=== PATIENT | female | born 1975 | race Caucasian/White ===

== ENCOUNTER 2021-01-20 12:44 | Outpatient (CLI) | payer BC, SELFPAY ==
--- NOTE | 2021-01-20 | ECHO_ITS ---
Patient Info Name: Kaye Shane Age: 45 years : 1975 Gender: Female Ht: 64 in Wt: 200 lbs BSA: 2.06 m2 HR: 73 bpm BP: 120 / 74 mmHg Heart Rhythm: Sinus Rhythm Technical Quality: Good Exam Date: 01/20/2021 1:25 PM Exam Location: [facility] Patient Status: Outpatient Admit Date: 01/20/2021 Staff Ordering Physician: SofieAngie PA-C Wildlife Conservation Officer: Amy Adler RDCS Attending Provider: Angie Leos PA-C Exam Type: CA echo doppler color flow Study Info Indications - INCREASED ECTOPY R01.1 - Cardiac murmur, unspecified Complete two-dimensional, color flow and Doppler transthoracic echocardiogram is performed. Summary 1. Complete two-dimensional, color flow and Doppler transthoracic echocardiogram is performed. 2. Left ventricular chamber dimension is normal. 3. Left ventricular systolic function is normal, estimated at 65-70%. 4. There is trace mitral valve regurgitation. 5. There is trace tricuspid valve regurgitation. Left Ventricle Left ventricular chamber dimension is normal. Left ventricular systolic function is normal, estimated at 65-70%. The left ventricular diastolic function is normal. Right Ventricle Right ventricular chamber dimension is normal. Left Atria Left atrial chamber dimension is normal. Right Atria Right atrial chamber dimension is normal. Aortic Valve The aortic valve is normal. Pulmonic Valve The pulmonic valve is normal. Mitral Valve The mitral valve has normal leaflets. There is trace mitral valve regurgitation. Tricuspid Valve The tricuspid valve leaflets are normal. There is trace tricuspid valve regurgitation. Pericardium/Pleural The pericardium appears normal. Aorta The aortic root size at the sinus of Valsalva is normal. Left Ventricular Outflow Tract Name Value Normal LVOT 2D LVOT Diameter 2.0 cm LVOT Doppler LVOT Peak Gradient 11 mmHg LVOT Mean Gradient 6 mmHg LVOT VTI 32 cm LVOT VTI/AV VTI Ratio 0.9 LVOT Stroke Volume 102 ml LVOT CO 21.0 l/min LVOT CI 10.2 l/min/m2 Pulmonic Valve Name Value Normal PV Doppler PV Peak Gradient 6 mmHg Mitral Valve Name Value Normal MV Doppler MV Decel Sabine 423 cm/s2 MV PHT 72 ms MV Area (PHT) 3.1 cm2 4.0-5.0 MV Diastolic Function --
== END 2021-01-20 12:45 | disposition home or self-care (01) ==
PROVIDERS: PCP Physician Assistant; Visit Provider Physician Assistant
DX: R01.1 Cardiac murmur, unspecified (principal)
CPT/HCPCS: 93306

== ENCOUNTER → 2021-01-27 15:22 | Outpatient (CLI) | payer BC, SELFPAY ==
--- NOTE | ~2021-01-27 | MM_ITS ---
EXAMINATION: MM screening mushtaq BI w daphne HISTORY: Screening mammogram TECHNIQUE: Craniocaudal and mediolateral oblique 3-D tomosynthesis images were obtained and synthetic 2-D images were generated. CAD analysis was submitted and interpreted. COMPARISON: August 27, 2018 bilateral digital screening mammogram examination BREAST PARENCHYMAL COMPOSITION: The breasts are heterogeneously dense, which may obscure small masses . FINDINGS: Stable benign circumscribed opacity consistent with intramammary lymph node, posterior oute r mid left breast. There is no evidence of suspicious mass, calcification, or architectural distortio n to suggest malignancy in either breast. There has been no suspicious interval change. IMPRESSION: 1. No mammographic evidence of malignancy. 2. Recommend routine screening mammography in one year. BI-RADS Category 2: Benign finding(s). Reviewed, dictated and finalized at location A.
== END ==
PROVIDERS: PCP Physician Assistant; Visit Provider Physician Assistant
DX: Z12.31 Encounter for screening mammogram for malignant neoplasm of breast (principal)
CPT/HCPCS: 77063; 77067

== ENCOUNTER 2022-04-27 11:07 | Emergency (ER) | payer BC, SELFPAY ==
[2022-04-27 11:32] VITALS: BP 135/78; PULSE 95; RESP 17; TEMP 36.3; O2SAT 98
--- NOTE | 2022-04-27 13:33 | PC.NURSE ---
pt to the intake desk and states that she is going to leave. Pt ambulated to the exit with no difficulty
== END 2022-04-27 13:33 | disposition left against medical advice (07) ==
PROVIDERS: PCP Physician Assistant
DX: R20.0 Anesthesia of skin (principal)
CPT/HCPCS: 99199

== ENCOUNTER → 2022-08-04 10:05 | Outpatient (CLI) | payer BC, SELFPAY ==
--- NOTE | ~2022-08-04 | MM_ITS ---
EXAMINATION: MM screening mushtaq BI w daphne HISTORY: Screening TECHNIQUE: Craniocaudal and mediolateral oblique 3-D tomosynthesis images were obtained and synthetic 2-D images were generated. CAD analysis was submitted and interpreted. COMPARISON: Comparison to multiple prior studies sequentially, with oldest reviewed study dated 08/27. BREAST PARENCHYMAL COMPOSITION: The breasts are heterogeneously dense, which may obscure small masses FINDINGS: There is no evidence of suspicious mass, calcification, or architectural distortion to sugg est malignancy in either breast. There has been no suspicious interval change. IMPRESSION: 1. No mammographic evidence of malignancy. 2. Recommend routine screening mammography in one year. BI-RADS Category 1: Negative Reviewed, dictated and finalized at location A. 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
== END ==
PROVIDERS: PCP Physician Assistant; Visit Provider Physician Assistant
DX: Z12.31 Encounter for screening mammogram for malignant neoplasm of breast (principal)
CPT/HCPCS: 77063; 77067

== ENCOUNTER 2023-11-01 10:54 | Outpatient (CLI) | payer BC, SELFPAY ==
--- NOTE | ~2023-11-01 | MM_ITS ---
EXAMINATION: MM screening mushtaq BI w daphne HISTORY: Screening mammogram TECHNIQUE: Craniocaudal and mediolateral oblique 3-D tomosynthesis images were obtained and synthetic 2-D images were generated. CAD analysis was submitted and interpreted. COMPARISON: August 04, 2022, January 27, 2021 bilateral screening mammogram examinations BREAST PARENCHYMAL COMPOSITION: The breasts are heterogeneously dense, which may obscure small masses . FINDINGS: There is no evidence of suspicious mass, calcification, or architectural distortion to sugg est malignancy in either breast. There has been no suspicious interval change. IMPRESSION: 1. No mammographic evidence of malignancy. 2. Recommend routine screening mammography in one year. BI-RADS Category 1: Negative. Vertebral Reviewed, dictated and finalized at location A.
== END 2023-11-01 10:55 ==
LOC: MICIMG 10:55
PROVIDERS: PCP Physician Assistant; Visit Provider Physician Assistant
DX: Z12.31 Encounter for screening mammogram for malignant neoplasm of breast (principal)
CPT/HCPCS: 77063; 77067

== ENCOUNTER 2024-09-15 11:49 | Outpatient (CLI) | payer BC, SELFPAY ==
[2024-09-15 12:31] LABS: Anion Gap 12 mmol/L (4-12); Blood Urea Nitrogen 13 mg/dL (7-17); Calcium 8.8 mg/dL (8.4-10.2); Carbon Dioxide 23 mmol/L (22-30); Chloride 103 mmol/L (98-107); Estimated Glomerular Filt Rate > 60; Glucose 87 mg/dL (65-110); Potassium 3.9 mmol/L (3.4-5.0); Sodium 138 mmol/L (137-145)
--- OUTSIDE RECORDS SUMMARY | 2024-09-15 14:21 | XMS_ITS | Clinical Summary ---
Author Organization [facility] Address [address] [place] [address] Care Team Providers Care Distributor Operator Name Role Phone Unavailable Primary Care Provider Unavailabl e Source Comments [facility],non-owned Affiliates and Associated Physician Practices is amultiple site organization consisting of ambulatory clinics and hospital sitesin [place], [place], [place] and [place]. This disclosure is being madepursuant to the Care Everywhere program and may not contain all informatio navailable regarding this patient. Last updated 18.[facility] [employer] Social History Tobacco Use Types Packs/Day Years Used Date Smoking Tobacco: Never Assessed Sex and Gender Information Value Date Recorded Sex Assigned at Not on file Gender Identity Not on file Sexual Orientation Not on file Plan of Treatment Health Maintenance Due Date Last Done Comments COLOGUARD (AGES 45-75) - COL ON CA SCREENING 1975 COLON MONITORING 1975 COLONOSCOPY - COLON CA SCREENING 1975 CT COLONOGRAPHY - COLON CA SCREENING 1975 Colorectal Cancer Screening 1975 FIT - COLON CA SCREENING 1975 FLEX SIG - COLON CA SCREENING 1975 LIPID TESTING 1975 MAMMOGRAM 1975 PAP SMEAR 1975 HIV SCREENING 12/10/1991 HEPATITIS C SCREENING 12/05/1994 DTAP/TDAP/TD VACCINES (1 - Tdap) 12/10/1995 HEPATITIS B VACCINE (1 of 3 - 19+ 3-dose series) 12/10/1995 COVID-19 VACCINE (3 2023-2 5 season) 2024 07/27/2020, 06/29/2020 INFLUENZA VACCINE (#1) 2024 DEPRESSION SCREENING 07/02/2024 ZOSTER VACCINE (1 of 2) 2026 HIB VACCINE Aged Out No longer eligi ble based on patient's age to complete this topic HPV VACCINE Aged Out No longer eligi ble based on patient's age to complete this topic MENINGOCOCCAL (Group B) VACCINE SHARED DECISION-MAKING Aged Out No longer eligible based on patient's age to complete this topic MENINGOCOCCAL GROUPS A/C/Y/W VACCINE Aged Out No longer eligible b ased on patient's age to complete this topic PNEUMOCOCCAL VACCINE Aged Out No long er eligible based on patient's age to complete this topic
--- OUTSIDE RECORDS SUMMARY | 2024-09-15 14:21 | XMS_ITS | Clinical Summary ---
Author Organization [facility] Address [address] [place] [id number] Care Team Providers Care Serologist Name Role Phone Argelia Huitronkelvin NIX Primary Care Pr ovider Allergies No known active allergies Medications ketorolac (TORADOL) 10 mg tablet Take 1 tablet (10 mg total) by mouth every 6 (six) hours as needed for pain 20 tablet 2 Active cyclobenzaprine (FLEXERIL) 10 mg tablet Take 1 tablet (10 mg total) by mouth 2 (two) times a day as needed for muscle spasms 20 tablet 2 Active gabapentin (NEURONTIN) 300 mg capsuleIndicati ons:Neuropathic Pain Take 1 capsule (300 mg total) by mouth 3 (three) times a day for 10 days For post-herpetic neuralgia: Take 1 tablet on day 1, Then take 2 tablets on day 2, Then take 3 tablets on day 3 and every day after that as instructed by your doctor. 30 capsule 2 Active Social History Tobacco Use Types Packs/Day Years Used Date Smoking Tobacco: Never Assessed Personal Safety Answer Date Recorded Getting School Help Needed Not on file 09/14 Comments Unknown Sex and Gender Information Value Date Recorded Sex Assigned at Not on file Legal Sex Female 12:34 AM WATCH REPAIR TECHNICIAN Gender Identity Not on file Sexual Orientation Not on file Last Filed Vital Signs Vital Sign Reading Time Taken Comments Blood Pressure 105/59 06/25/2022 7:49 PM WATCH REPAIR TECHNICIAN Pulse 103 06/25/2022 7:49 PM WATCH REPAIR TECHNICIAN Temperature 36.8 C (98.3 F) 06/25/2022 7:49 PM WATCH REPAIR TECHNICIAN Respiratory Rate 18 06/25/2022 7:49 PM WATCH REPAIR TECHNICIAN Oxygen Saturation 98% 06/25/2022 7:49 PM WATCH REPAIR TECHNICIAN Inhaled Oxygen Concentration - - Weight 74.8 kg (165 lb) 06/25/2022 7:49 PM WATCH REPAIR TECHNICIAN Height 162.6 cm (5' 4 ) 10/23/2014 11:54 AM CDT Body Mass Index 28.32 10/23/2014 11:54 AM CDT Plan of Treatment Health Maintenance Due Date Last Done Comments Breast Cancer Screening-Mammogram 1975 Colon Cancer Screening-Colonoscopy 1975 Depression Screening 1975 Hepatitis C Screening 1975 DTaP/Tdap/Td Vaccine (1 - Tdap) 12/10/1987 Hepatitis B Screening 1994 Regular Well Visit/Exam 18-64 1994 Cervical Cancer Screening 08/12/2015 08/12/2014 Covid-19 Vaccine (3 - 2023-2 5 season) 2024 07/27/2020, 06/29/2020 Influenza Vaccine (#1) 2024 03/02/2019 Pneumococcal vaccine <65 Aged Out No longer eligible based on patient's age to complete this topic Procedures Procedure Name Priority Date/Time Associated Diagnosis Comments THINPREP PAP Routine 08/12/2014 1:00 PM WATCH REPAIR TECHNICIAN from Last 3 Months or Most Recently Relevant to Health Maintenance Results * ThinPrep Pap (08/12/2014 1:00 PM WATCH REPAIR TECHNICIAN) Thin Prep Pap Smear SEE BELOW () 08/22 10:47 AM WATCH REPAIR TECHNICIAN [facility] HISTORICAL RESULTS Comment: Cloth Burler ThinPrep Cytology Final Report ThinPrep Pap Specimen Source Cervix/Endocervix Specimen Adequacy Satisfactory for interpretation, endocervical cells (transformation zone) present. Interpretation Negative for intraepithelial lesion or malignancy. 08/21/14 Feather Duster Winder: Nani Yeager, CT(ASCP) Reviewed by: JUANITO 08/22/14 Verified By: Petra Taveras, CT(ASCP) electronic signature [facility] Department of Pathology For questions regarding this case, call [phone]. [phone] CPT Code(s) 98568 Clinical History LMP: [id number] : N : N IUD: N Hormone Therapy: N Postmenopausal: N Previous surgery date and type: N Hysterectomy: N Chemotherapy: N MAURICIO Exposure: N Radiation: N Previous Abnormal Pap? Details: N Diagnostic or Screening Pap Test: Screening Performed by [facility], [address] [place] [id number] [email or web address], Khurram Esparza MD - Lab. Director 08/12/2014 1:00 PM WATCH REPAIR TECHNICIAN 08/12/2014 4:07 PM WATCH REPAIR TECHNICIAN Jose A Wiggins MD LAB PATHOLOGY ORDERABLE S Final Result [facility] HISTORICAL RESULTS from Last 3 Months or Most Recently Relevant to Health Maintenance [place]about [place] [employer] [place] Care Teams Serologist Relationship Specialty Start Date End Date Crissy Huitron PA PCP - General Physician Ticket Collector Or Usher 03/30/20
--- OUTSIDE RECORDS SUMMARY | 2024-09-15 14:21 | XMS_ITS | Data Portability ---
Author Organization [place] - [facility] [address], Main Office Address [address] [place] [address] Assessment Encounter Date Assessment Date Assessment LastModified by Organization Details LastModified Time 02/22/2023 02/22/2023 cologuard negative mar 2022 [email or web address] Not available 02/22/2023 11:41:16 Plan of Treatment Reminders Order Date Submit Date Provider Last Modified By Organization Details Last Modified Time Details Appointments None recorded. Lab lipid panel, serum 2022 023 [facility], [address], [place], [address], 4 17:09:55 C-reactive protein, quantitativ e, serum or plasma 2022 023 [facility], [address], [place], [address], 4 17:10:07 rf (rheumatoid factor), serum 2022 023 [facility], [address], [place], [address], 4 17:10:06 erythrocyte sedimentati on rate by westergren method 2022 023 [facility], [address], [place], [address], 4 17:10:00 uric acid, serum or plasma 2022 023 [facility], [address], [place], [address], 4 17:09:59 GENET (antinuclea r antibodies) screen, ifa, serum 2022 023 [facility], [address], [place], [address], 4 17:10:04 CBC w/ auto diff 2022 023 [facility], [address], [place], [address], 4 17:10:02 CMP, serum or plasma 2022 023 [facility], [address], [place], [address], 4 17:09:56 TSH + free T4, serum 2022 023 [facility], [address], [place], [address], 4 17:09:54 HbA1c (hemoglobin A1c), blood 2022 023 [facility], [address], [place], [address], 4 17:09:58 Referral None recorded. Procedures None recorded. Surgeries None recorded. Imaging XR, foot, 3 or more view 2022 023 KIRSTIE Not available 08:49:48 Medication Orders None recorded. Patient TargetsNo targets recorded. Patient InstructionsNo instructions recorded. Reason for Referral None Reported. Results Created Date Observation Date Name Description Value Unit Range Abnormal Flag Note LastModifiedBy Organization Detail LastModifiedTime 02/23/20 22 02/24/2022 CULTU RE, URINE , ROUTI NE culture, urine, routine CULTU RE, URINE , ROUTI NE Micro Numbe r: [id number] Test Statu s: Final Speci men Sourc e: Urine Speci men Quali ty: Adequ ate Resul t: Mixed genit al ashtyn isola junie. These super ficia l bacte shaan are not indic ative of a urina ry tract infec tion. No furth er organ ism ident ifica tion is warra nted on this speci men. If clini flora indic ated, recol lect clean -catc h, mid-s tream urine and trans mellissa immed iatel y to Urine Cultu re Trans port Tube. Not Available [facility] [address] [address] [place], [address], 02/24/2022 02:14:41 02/23/2002/24/2022 INSUL IN insulin 14.9 uIU/m L normal Refer ence Range < or = 19.6 Risk: Optim al < or = 19.6 Moder ate NA High >19.6 Adult cardi ovasc ular event risk categ ory cut point s (opti mal, moder ate, high) are based on [facility] popul ation data from 06/20 11. This insul in assay shows stron g cross -reac tivit y for some insul in analo gs (lisp ro, aspar t, and glarg ine) and much lower cross -reac tivit y with other s (dete mauro, gluli sine) . Not Available [facility] [address] [address] [place], [address], 02/24/2022 02:14:40 02/23/20 22 02/24/2022 REFLE XIVE URINE CULTU RE reflexive urine culture CULTU RE INDIC ATED - RESUL TS TO FOLLO W Not Available [facility] [address] [address] [place], [address], 02/24/2022 02:14:40 02/23/20 22 02/24/2022 URINA LYSIS , COMPL ETE W/REF CELESTINE TO CULTU RE hyaline cast none seen /lpf none seen normal Not Available [facility] [address] [address] [place], [address], 02/24/2022 02:14:40 02/23/20 22 02/24/2022 URINA LYSIS , COMPL ETE W/REF CELESTINE TO CULTU RE color yellow yellow normal Not Available [address], [address], 02/24/2022 02:14:40 02/23/20 22 02/24/2022 URINA LYSIS , COMPL ETE W/REF CELESTINE TO CULTU RE appearance clear clear normal Not Available [address], [address], 02/24/2022 02:14:40 02/23/20 22 02/24/2022 URINA LYSIS , COMPL ETE W/REF CELESTINE TO CULTU RE specific gravity 1.023 1.001- 1.035 normal Not Available [address], [address], 02/24/2022 02:14:40 02/23/20 22 02/24/2022 URINA LYSIS , COMPL ETE W/REF CELESTINE TO CULTU RE pH 7.0 5.0-8. 0 normal Not Available [address], [address], 02/24/2022 02:14:40 02/23/20 22 02/24/2022 URINA LYSIS , COMPL ETE W/REF CELESTINE TO CULTU RE glucose negati ve negati ve normal Not Available [address], [address], 02/24/2022 02:14:40 02/23/20 22 02/24/2022 URINA LYSIS , COMPL ETE W/REF CELESTINE TO CULTU RE bilirubin negati ve negati ve normal Not Available [address], [address], 02/24/2022 02:14:40 02/23/20 22 02/24/2022 URINA LYSIS , COMPL ETE W/REF CELESTINE TO CULTU RE ketones negati ve negati ve normal Not Available [address], [address], 02/24/2022 02:14:40 02/23/20 22 02/24/2022 URINA LYSIS , COMPL ETE W/REF CELESTINE TO CULTU RE occult blood negati ve negati ve normal Not Available [address], [address], 02/24/2022 02:14:40 02/23/20 22 02/24/2022 URINA LYSIS , COMPL ETE W/REF CELESTINE TO CULTU RE protein negati ve negati ve normal Not Available [address], [address], 02/24/2022 02:14:40 02/23/20 22 02/24/2022 URINA LYSIS , COMPL ETE W/REF CELESTINE TO CULTU RE nitrite negati ve negati ve normal Not Available [address], [address], 02/24/2022 02:14:40 02/23/20 22 02/24/2022 URINA LYSIS , COMPL ETE W/REF CELESTINE TO CULTU RE leukocyte esterase 1+ negati ve abnormal Not Available [address], [address], 02/24/2022 02:14:40 02/23/20 22 02/24/2022 URINA LYSIS , COMPL ETE W/REF CELESTINE TO CULTU RE WBC 0-5 /hpf < or = 5 normal Not Available [address], [address], 02/24/2022 02:14:40 02/23/20 22 02/24/2022 URINA LYSIS , COMPL ETE W/REF CELESTINE TO CULTU RE RBC none seen /hpf < or = 2 normal Not Available [address] [place], [address], 02/24/2022 02:14:40 02/23/20 22 02/24/2022 URINA LYSIS , COMPL ETE W/REF CELESTINE TO CULTU RE squamous epithelial cells 0-5 /hpf < or = 5 Not Available [address], [address], 02/24/2022 02:14:40 02/23/20 22 02/24/2022 URINA LYSIS , COMPL ETE W/REF CELESTINE TO CULTU RE bacteria none seen /hpf none seen normal Not Available [address], [address], 02/24/2022 02:14:40 02/23/20 22 02/24/2022 CBC (INCL UDES DIFF/ PLT) white blood cell count 7.5 thous and/u L 3.8-10 .8 normal Not Available [address], [address], 02/24/2022 02:14:39 02/23/20 22 02/24/2022 CBC (INCL UDES DIFF/ PLT) red blood cell count 4.23 jordyn on/uL 3.80-5 .10 normal Not Available [address], [address], 02/24/2022 02:14:39 02/23/20 22 02/24/2022 CBC (INCL UDES DIFF/ PLT) hemoglobin 11.8 g/dL 11.7-1 5.5 normal Not Available [address], [address], 02/24/2022 02:14:39 02/23/20 22 02/24/2022 CBC (INCL UDES DIFF/ PLT) hematocrit 37.2 % 35.0-4 5.0 normal Not Available [address], [address], 02/24/2022 02:14:39 02/23/20 22 02/24/2022 CBC (INCL UDES DIFF/ PLT) MCV 87.9 fL 80.0-1 00.0 normal Not Available [address], [address], 02/24/2022 02:14:39 02/23/20 22 02/24/2022 CBC (INCL UDES DIFF/ PLT) MCH 27.9 pg 27.0-3 3.0 normal Not Available [address], [address], 02/24/2022 02:14:39 02/23/20 22 02/24/2022 CBC (INCL UDES DIFF/ PLT) MCHC 31.7 g/dL 32.0-3 6.0 low Not Available [address], [address], 02/24/2022 02:14:39 02/23/20 22 02/24/2022 CBC (INCL UDES DIFF/ PLT) RDW 13.1 % 11.0-1 5.0 normal Not Available [address], [address], 02/24/2022 02:14:39 02/23/20 22 02/24/2022 CBC (INCL UDES DIFF/ PLT) platelet count 228 thous and/u L 140-40 0 normal Not Available [address], [address], 02/24/2022 02:14:39 02/23/20 22 02/24/2022 CBC (INCL UDES DIFF/ PLT) MPV 11.1 fL 7.5-12 .5 normal Not Available [address], [address], 02/24/2022 02:14:39 02/23/20 22 02/24/2022 CBC (INCL UDES DIFF/ PLT) absolute neutrophils 4485 cells /uL 1500-7 800 normal Not Available [address], [address], 02/24/2022 02:14:39 02/23/20 22 02/24/2022 CBC (INCL UDES DIFF/ PLT) absolute lymphocytes 2228 cells /uL 850-39 00 normal Not Available [address], [address], 02/24/2022 02:14:39 02/23/20 22 02/24/2022 CBC (INCL UDES DIFF/ PLT) absolute monocytes 450 cells /uL 200-95 0 normal Not Available [address], [address], 02/24/2022 02:14:39 02/23/20 22 02/24/2022 CBC (INCL UDES DIFF/ PLT) absolute eosinophils 278 cells /uL 15-500 normal Not Available [address], [address], 02/24/2022 02:14:39 02/23/20 22 02/24/2022 CBC (INCL UDES DIFF/ PLT) absolute basophils 60 cells /uL 0-200 normal Not Available [address], [address], 02/24/2022 02:14:39 02/23/20 22 02/24/2022 CBC (INCL UDES DIFF/ PLT) neutrophils 59.8 % normal Not Available [address], [address], 02/24/2022 02:14:39 02/23/20 22 02/24/2022 CBC (INCL UDES DIFF/ PLT) lymphocytes 29.7 % normal Not Available [address], [address], 02/24/2022 02:14:39 02/23/20 22 02/24/2022 CBC (INCL UDES DIFF/ PLT) monocytes 6.0 % normal Not Available [facility] [address] [address] [place], [address], 02/24/2022 02:14:39 02/23/20 22 02/24/2022 CBC (INCL UDES DIFF/ PLT) eosinophils 3.7 % normal Not Available [facility] [address] [address] [place], [address], 02/24/2022 02:14:39 02/23/20 22 02/24/2022 CBC (INCL UDES DIFF/ PLT) basophils 0.8 % normal Not Available [facility] [address] [address] [place], [address], 02/24/2022 02:14:39 02/23/20 22 02/24/2022 HEMOG LOBIN A1C hemoglobin A1C 5.1 %_of_ total _HGB <5.7 normal For the purpo se of aurelio gracia for the prese nce of diabe sanjana: <5.7% Consi stent with the absen ce of diabe sanjana 5.7-6 .4% Consi stent with incre ased risk for diabe sanjana (pred iabet es) > or =6.5% Consi stent with diabe sanjana This assay resul t is consi stent with a decre ased risk of diabe sanjana. Curre ntly, no conse nsus exist s mary cadet use of hemog lobin A1c for diagn osis of diabe sanjana in child marcelino. Accor ding to Ameri can Diabe sanjana Assoc iatio n (ADA) guide lines , hemog lobin A1c <7.0% repre sents optim al contr ol in non-p regna nt diabe tic patie nts. Diffe rent metri cs may apply to speci fic patie nt popul ation s. [facility] of Medic al Care in [place] sanjana(A DA). Not Available [facility] [address] [address] [place], [address], 02/24/2022 02:14:39 02/23/20 22 02/24/2022 COMPR EHENS YANELY METAB OLIC PANEL glucose 96 mg/dL 65-99 normal Fasti ng refer ence inter jordon Not Available [address], [address], 02/24/2022 02:14:38 02/23/20 22 02/24/2022 COMPR EHENS YANELY METAB OLIC PANEL urea nitrogen (BUN) 14 mg/dL 7-25 normal Not Available [address], [address], 02/24/2022 02:14:38 02/23/20 22 02/24/2022 COMPR EHENS YANELY METAB OLIC PANEL creatinine 0.75 mg/dL 0.50-0 .99 normal Not Available [address], [address], 02/24/2022 02:14:38 02/23/20 22 02/24/2022 COMPR EHENS YANELY METAB OLIC PANEL eGFR 100 mL/mi n/1.7 3m2 > or = 60 normal The eGFR is based on the CKD-E PI 2020 kostas moreno. To calcu late the new eGFR from a previ ous Creat inine or Cysta tin C resul t, go to https ://sam townsend.tyra ko/enrique leach s/ kdoqi /gfr% 5Fcal culat or Not Available [address], [address], 02/24/2022 02:14:38 02/23/20 22 02/24/2022 COMPR EHENS YANELY METAB OLIC PANEL BUN/creatini ne ratio not applic able (calc ) 6-22 Not Available [address], [address], 02/24/2022 02:14:38 02/23/20 22 02/24/2022 COMPR EHENS YANELY METAB OLIC PANEL sodium 138 mmol/ L 135-14 6 normal Not Available [address], [address], 02/24/2022 02:14:38 02/23/20 22 02/24/2022 COMPR EHENS YANELY METAB OLIC PANEL potassium 3.9 mmol/ L 3.5-5. 3 normal Not Available [address], [address], 02/24/2022 02:14:38 02/23/20 22 02/24/2022 COMPR EHENS YANELY METAB OLIC PANEL chloride 104 mmol/ L 98-110 normal Not Available [address], [address], 02/24/2022 02:14:38 02/23/20 22 02/24/2022 COMPR EHENS YANELY METAB OLIC PANEL carbon dioxide 31 mmol/ L 20-32 normal Not Available [address], [address], 02/24/2022 02:14:38 02/23/20 22 02/24/2022 COMPR EHENS YANELY METAB OLIC PANEL calcium 8.9 mg/dL 8.6-10 .2 normal Not Available [address], [address], 02/24/2022 02:14:38 02/23/20 22 02/24/2022 COMPR EHENS YANELY METAB OLIC PANEL protein, total 6.1 g/dL 6.1-8. 1 normal Not Available [address], [address], 02/24/2022 02:14:38 02/23/20 22 02/24/2022 COMPR EHENS YANELY METAB OLIC PANEL albumin 3.7 g/dL 3.6-5. 1 normal Not Available [address], [address], 02/24/2022 02:14:38 02/23/20 22 02/24/2022 COMPR EHENS YANELY METAB OLIC PANEL globulin 2.4 g/dL_ (calc ) 1.9-3. 7 normal Not Available [address], [address], 02/24/2022 02:14:38 02/23/20 22 02/24/2022 COMPR EHENS YANELY METAB OLIC PANEL albumin/glob ulin ratio 1.5 (calc ) 1.0-2. 5 normal Not Available [address], [address], 02/24/2022 02:14:38 02/23/20 22 02/24/2022 COMPR EHENS YANELY METAB OLIC PANEL bilirubin, total 0.4 mg/dL 0.2-1. 2 normal Not Available [address], [address], 02/24/2022 02:14:38 02/23/20 22 02/24/2022 COMPR EHENS YANELY METAB OLIC PANEL alkaline phosphatase 79 U/L 31-125 normal Not Available [address], [address], 02/24/2022 02:14:38 02/23/20 22 02/24/2022 COMPR EHENS YANELY METAB OLIC PANEL AST 13 U/L 10-35 normal Not Available [address], [address], 02/24/2022 02:14:38 02/23/20 22 02/24/2022 COMPR EHENS YANELY METAB OLIC PANEL ALT 13 U/L 6-29 normal Not Available [address], [address], 02/24/2022 02:14:38 02/23/20 22 02/24/2022 LIPID PANEL WITH RATIO S cholesterol, total 155 mg/dL <200 normal Not Available [address], [address], 02/24/2022 02:14:38 02/23/20 22 02/24/2022 LIPID PANEL WITH RATIO S HDL cholesterol 45 mg/dL > or = 50 low Not Available [address], [address], 02/24/2022 02:14:38 02/23/20 22 02/24/2022 LIPID PANEL WITH RATIO S triglyceride s 212 mg/dL <150 high If a non-f astin g speci men was colle cted, consi beth repea t trigl yceri de testi ng on a fasti ng speci men if clini flora indic ated. Carlos gatica et al. J. of Clin. Lipid ol. 2015; 9:129 -169. Not Available [address], [address], 02/24/2022 02:14:38 02/23/20 22 02/24/2022 LIPID PANEL WITH RATIO S LDL-choleste rol 79 mg/dL _(ravi c) normal Refer ence range : <100 Олег able range <100 mg/dL for prima ry preve ntion ; <70 mg/dL for patie nts with CHD or diabe tic patie nts with > or = 2 CHD risk facto rs. LDL-C is now calcu lated using the Nati n-Hop kins calcu sparkle n, which is a valid ated novel franciscao leif montenegro r accur acy than the Fried lesli equat ion in the estim ation of LDL-C . Nati sherwood SS et al. SRI. 2013; 310(1 9): 2061- 2068 (http ://ed ucati on.Qu rebekahDi CarWale. com/f aq/FA Q164) Not Available [address] [address] , [place], [address], 02/24/2022 02:14:38 02/23/20 22 02/24/2022 LIPID PANEL WITH RATIO S chol/HDLC ratio 3.4 (calc ) <5.0 normal Not Available [address] [place], [address], 02/24/2022 02:14:38 02/23/20 22 02/24/2022 LIPID PANEL WITH RATIO S LDL/HDL ratio 1.8 (calc ) Below avera ge Risk: <2.34 Etna ge Risk: 2.35- 4.12 Moder ate Risk: 4.13- 5.56 High Risk: >5.57 Not Available [address] [address] [place], [address], 02/24/2022 02:14:38 02/23/20 22 02/24/2022 LIPID PANEL WITH RATIO S non HDL cholesterol 110 mg/dL _(ravi c) <130 normal For patie nts with diabe sanjana plus 1 major ASCVD risk facto r, treat ing to a non-H DL-C goal of <100 mg/dL (LDL- C of <70 mg/dL ) is consi benjamin a zafar peuti c optio n. Not Available [address] , [place], [address], 02/24/2022 02:14:38 02/23/2002/24/2022 TSH+F REE T4 TSH 3.37 mIU/L normal Refer ence Range > or = 20 Years 0.40- 4.50 Pregn saira Range s First trime ster 0.26- 2.66 Secon d trime ster 0.55- 2.73 Third trime ster 0.43- 2.91 Not Available [address] [address] [place], [address], 02/24/2022 02:14:37 02/23/2002/24/2022 TSH+F REE T4 T4, free 1.1 NG/dL 0.8-1. 8 normal Not Available [address] [address] [place], [address], 02/24/2022 02:14:37 03/15/20 22 03/15/2022 COLOG UARD cologuard result reportable negati ve negati ve NEGAT YANELY TEST RESUL T. A negat yanely Colog uard resul t indic ates a low likel ihood that a color ectal cance r (CRC) or advan marilin adeno ma (george omato us polyp s with more advan marilin pre-m align ant featu res) is prese nt. The chanc e that a perso n with a negat yanely Colog uard test has a color ectal cance r is less than 1 in 1500 (nega tive predi ctive value >99.9 %) or has an advan marilin adeno ma is less than 5.3% (nega tive predi ctive value 94.7% ). These data are based on a prosp ectiv e cross -sect ional study of 10,00 0 indiv idual s at [facility] risk for color ectal cance r who were scree gerald with both Colog uard and colon oscop y. (Lela Little et al, N Engl J Med 2014; 370(1 4):12 86-12 97) The amanda l value (refe rence range ) for this assay is negat yanely. COLOG UARD RE-SC REENI NG RECOM MENDA TION: Perio dic color ectal cance r scree basil is an impor tant part of preve ntive healt hcare for asymp tomat ic indiv idual s at [facility] risk for color ectal cance r. Follo wing a negat yanely Colog uard resul t, the Ameri can Cance r Socie ty and U.S. Multi -Soci ety Task Force scree basil guide lines recom mend a Colog uard re-sc reeni ng inter ojrdon of 3 years . Refer ences : Ameri can Cance r Socie ty Guide line for Color ectal Cance r Scree basil: https ://sam villalba cer.o rg/ca ncer/ colon -rect al-ca ncer/ detec tion- diagn osis- stagi ng/ac s-rec ommen datio ns.isaura ml.; Brando QUINONES, Hunter TURPIN, Srinivas DUNLAP, Color ectal Cance r Scree basil: Recom menda tions for Physi cians and Patie nts from the U.S. Multi -Soci ety Task Force on Color ectal Cance r Carmel Crawford y 2017; 112:1 016-1 030. TEST DESCR IPTIO N: Big Coppitt Key site algor ithmi c viral sis of stool DNA-b iomar kers with hemog lobin immun oassa y. Quant itati ve value s of indiv idual bioma rkers are not repor table and are not assoc iated with indiv idual bioma rker resul t refer ence range s. Colog uard is inten ded for color ectal cance r scree basil of adult s of eithe r sex, 45 years or older , who are at [facility] for color ectal cance r (CRC) . Colog uard has been appro brianna for use by the U.S. FDA. The perfo rmanc e of Colog uard was estab lishe d in a cross secti onal study of [facility] adult s aged 50-84 . Colog uard perfo rmanc e in patie nts ages 45 to 49 years was estim ated by sub-g roup viral sis of near- age group s. Colon oscop ies perfo rmed for a posit yanely resul t may find as the most clini flora signi fican t lesio n: color ectal cance r [4.0% ], advan marilin adeno ma (incl uding sessi le cassandra junie polyp s great er than or equal to 1cm diame ter) [20%] or non- advan marilin adeno ma [31%] ; or no color ectal neopl justice [45%] . These estim ates are deriv ed from a prosp ectiv e cross -sect ional scree basil study of 10,00 0 indiv idual s at [facility] risk for color ectal cance r who were scree gerald with both Colog uard and colon oscop y. (Lela Beckett al, N Engl J Med 2014; 370(1 4):12 86-12 97.) Colog uard may produ ce a false negat yanely or false posit yanely resul t (no color ectal cance r or preca ncero us polyp prese nt at colon oscop y follo w up). A negat yanely Colog uard test resul t does not guara ntee the absen ce of CRC or advan marilin adeno ma (pre- cance r). The curre nt Colog uard scree basil inter jordon is every 3 years . (Amer ican Cance r Socie ty and U.S. Multi -Soci ety Task Force ). Colog uard perfo rmanc e data in a ,00 0 patie nt pivot al study using colon oscop y as the refer ence metho d can be acces sed at the follo wing locat ion: www.e xactl abs.c om/re essie . Addit ional descr iptio n of the Colog uard test proce ss, warni ngs and preca ution s can be found at www.c ologu day.c om. Not Available [facility] (Cologuard Orders Only) [address], [place], [address], 03/18/2022 02:20:33 07/20/1907/23/2023 TSH+F REE T4 TSH 2.35 mIU/L normal Refer ence Range > or = 20 Years 0.40- 4.50 Pregn saira Range s First trime ster 0.26- 2.66 Secon d trime ster 0.55- 2.73 Third trime ster 0.43- 2.91 Not Available [facility] [address] [place], [address], 07/23/2023 17:09:54 07/20/19 24 07/23/2023 TSH+F REE T4 T4, free 1.0 NG/dL 0.8-1. 8 normal Not Available [facility] [address] [place], [address], 07/23/2023 17:09:54 07/20/19 24 07/23/2023 LIPID PANEL WITH RATIO S cholesterol, total 203 mg/dL <200 high Not Available [facility] [address] [address] [place], [address], 07/23/2023 17:09:55 07/20/19 24 07/23/2023 LIPID PANEL WITH RATIO S HDL cholesterol 48 mg/dL > or = 50 low Not Available [facility] [address] [place], [address], 07/23/2023 17:09:55 07/20/19 24 07/23/2023 LIPID PANEL WITH RATIO S triglyceride s 188 mg/dL <150 high Not Available [facility] [address] [address] [place], [address], 07/23/2023 17:09:55 07/20/19 24 07/23/2023 LIPID PANEL WITH RATIO S LDL-choleste rol 125 mg/dL _(arvi c) high Refer ence range : <100 Олег able range <100 mg/dL for prima ry preve ntion ; <70 mg/dL for patie nts with CHD or diabe tic patie nts with > or = 2 CHD risk facto rs. LDL-C is now calcu lated using the Nati sherwood-Hop bennett villagran n, which is a valid ated novel lila adams accur acy than the Fried lesli equat ion in the estim ation of LDL-C . Ntai sherwood SS et al. SRI. 2013; 310(1 9): 2061- 2068 (http ://ed ucati on.Guillaume melgars. com/f aq/FA Q164) Not Available [facility] [address] [address], [place], [address], 07/23/2023 17:09:55 07/20/19 24 07/23/2023 LIPID PANEL WITH RATIO S chol/HDLC ratio 4.2 (calc ) <5.0 normal Not Available [facility] [address] [place], [address], 07/23/2023 17:09:55 07/20/19 24 07/23/2023 LIPID PANEL WITH RATIO S LDL/HDL ratio 2.6 (calc ) Below avera ge Risk: <2.34 Etna ge Risk: 2.35- 4.12 Moder ate Risk: 4.13- 5.56 High Risk: >5.57 Not Available [address], [address], 07/23/2023 17:09:55 07/20/19 24 07/23/2023 LIPID PANEL WITH RATIO S non HDL cholesterol 155 mg/dL _(ravi c) <130 high For patie nts with diabe sanjana plus 1 major ASCVD risk facto r, treat ing to a non-H DL-C goal of <100 mg/dL (LDL- C of <70 mg/dL ) is yaya stephen pegogo c optio n. Not Available [address], [address], 07/23/2023 17:09:55 07/20/19 24 07/23/2023 COMPR EHENS YANELY METAB OLIC PANEL glucose 89 mg/dL 65-99 normal Fasti ng refer ence inter jordon Not Available [address], [address], 07/23/2023 17:09:56 07/20/19 24 07/23/2023 COMPR EHENS YANELY METAB OLIC PANEL urea nitrogen (BUN) 17 mg/dL 7-25 normal Not Available [address], [address], 07/23/2023 17:09:56 07/20/19 24 07/23/2023 COMPR EHENS YANELY METAB OLIC PANEL creatinine 0.74 mg/dL 0.50-0 .99 normal Not Available [address], [address], 07/23/2023 17:09:56 07/20/19 24 07/23/2023 COMPR EHENS YANELY METAB OLIC PANEL eGFR 101 mL/mi n/1.7 3m2 > or = 60 normal Not Available [address] [address] [place], [address], 07/23/2023 17:09:56 07/20/19 24 07/23/2023 COMPR EHENS YANELY METAB OLIC PANEL BUN/creatini ne ratio SEE NOTE: (calc ) 6-22 Not Repor junei: BUN and Creat inine are withi n refer ence range . Not Available [address] [address] [place], [address], 07/23/2023 17:09:56 07/20/19 24 07/23/2023 COMPR EHENS YANELY METAB OLIC PANEL sodium 137 mmol/ L 135-14 6 normal Not Available [address] [address] [place], [address], 07/23/2023 17:09:56 07/20/19 24 07/23/2023 COMPR EHENS YANELY METAB OLIC PANEL potassium 3.9 mmol/ L 3.5-5. 3 normal Not Available [address] [address] [place], [address], 07/23/2023 17:09:56 07/20/19 24 07/23/2023 COMPR EHENS YANELY METAB OLIC PANEL chloride 104 mmol/ L 98-110 normal Not Available [address] [address] [place], [address], 07/23/2023 17:09:56 07/20/19 24 07/23/2023 COMPR EHENS YANELY METAB OLIC PANEL carbon dioxide 28 mmol/ L 20-32 normal Not Available [address] [address] [place], [address], 07/23/2023 17:09:56 07/20/19 24 07/23/2023 COMPR EHENS YANELY METAB OLIC PANEL calcium 8.9 mg/dL 8.6-10 .2 normal Not Available [address], [address], 07/23/2023 17:09:56 07/20/19 24 07/23/2023 COMPR EHENS YANELY METAB OLIC PANEL protein, total 6.6 g/dL 6.1-8. 1 normal Not Available [address], [address], 07/23/2023 17:09:56 07/20/19 24 07/23/2023 COMPR EHENS YANELY METAB OLIC PANEL albumin 4.0 g/dL 3.6-5. 1 normal Not Available [address], [address], 07/23/2023 17:09:56 07/20/19 24 07/23/2023 COMPR EHENS YANELY METAB OLIC PANEL globulin 2.6 g/dL_ (calc ) 1.9-3. 7 normal Not Available [address], [address], 07/23/2023 17:09:56 07/20/19 24 07/23/2023 COMPR EHENS YANELY METAB OLIC PANEL albumin/glob ulin ratio 1.5 (calc ) 1.0-2. 5 normal Not Available [address], [address], 07/23/2023 17:09:56 07/20/19 24 07/23/2023 COMPR EHENS YANELY METAB OLIC PANEL bilirubin, total 0.4 mg/dL 0.2-1. 2 normal Not Available [address] [place], [address], 07/23/2023 17:09:56 07/20/19 24 07/23/2023 COMPR EHENS YANELY METAB OLIC PANEL alkaline phosphatase 73 U/L 31-125 normal Not Available [address] [address] [place], [address], 07/23/2023 17:09:56 07/20/19 24 07/23/2023 COMPR EHENS YANELY METAB OLIC PANEL AST 13 U/L 10-35 normal Not Available [facility] [address] [place], [address], 07/23/2023 17:09:56 07/20/19 24 07/23/2023 COMPR EHENS YANELY METAB OLIC PANEL ALT 16 U/L 6-29 normal Not Available [facility] [address] [place], [address], 07/23/2023 17:09:56 07/20/19 24 07/23/2023 HEMOG LOBIN A1C hemoglobin A1C 5.0 %_of_ total _HGB <5.7 normal For the purpo se of scremanuel mendezg for the prese nce of diabe sanjana: <5.7% Consi stent with the absen ce of diabe sanjana 5.7-6 .4% Consi stent with incre ased risk for diabe sanjana (pred iabet es) > or =6.5% Consi stent with diabe sanjana This assay resul t is consi stent with a decre ased risk of diabe sanjana. Curre ntly, no conse nsus exist s mary cadet use of hemog lobin A1c for diagn osis of diabe sanjana in child marcelino. Accor ding to Ameri can Diabe sanjana Assoc iatio n (ADA) guide lines , hemog lobin A1c <7.0% repre sents optim al contr ol in non-p regna nt diabe tic patie nts. Diffe rent metri cs may apply to speci fic patie nt popul ation s. Stand ards of Medic al Care in Diabe sanjana(A DA). HbA1c perfo rmed on Abbot t platf orm. Not Available [facility] [address] [place], [address], 07/23/2023 17:09:58 07/20/19 24 07/23/2023 URIC ACID uric acid 4.0 mg/dL 2.5-7. 0 normal Thera peuti c targe t for gout patie nts: <6.0 mg/dL Not Available [address], [address], 07/23/2023 17:09:59 07/20/19 24 07/23/2023 SED RATE BY MODIF IED WESTE RGREN sed rate by modified westergren 11 mm/h < or = 20 normal Not Available [address], [address], 07/23/2023 17:10:00 07/20/19 24 07/23/2023 CBC (INCL UDES DIFF/ PLT) white blood cell count 5.8 thous and/u L 3.8-10 .8 normal Not Available [address], [address], 07/23/2023 17:10:02 07/20/19 24 07/23/2023 CBC (INCL UDES DIFF/ PLT) red blood cell count 4.29 jordyn on/uL 3.80-5 .10 normal Not Available [address], [address], 07/23/2023 17:10:02 07/20/19 24 07/23/2023 CBC (INCL UDES DIFF/ PLT) hemoglobin 12.5 g/dL 11.7-1 5.5 normal Not Available [address], [address], 07/23/2023 17:10:02 07/20/19 24 07/23/2023 CBC (INCL UDES DIFF/ PLT) hematocrit 38.6 % 35.0-4 5.0 normal Not Available [address], [address], 07/23/2023 17:10:02 07/20/19 24 07/23/2023 CBC (INCL UDES DIFF/ PLT) MCV 90.0 fL 80.0-1 00.0 normal Not Available [address] [place], [address], 07/23/2023 17:10:02 07/20/19 24 07/23/2023 CBC (INCL UDES DIFF/ PLT) MCH 29.1 pg 27.0-3 3.0 normal Not Available [address], [address], 07/23/2023 17:10:02 07/20/19 24 07/23/2023 CBC (INCL UDES DIFF/ PLT) MCHC 32.4 g/dL 32.0-3 6.0 normal Not Available [address], [address], 07/23/2023 17:10:02 07/20/19 24 07/23/2023 CBC (INCL UDES DIFF/ PLT) RDW 12.5 % 11.0-1 5.0 normal Not Available [address], [address], 07/23/2023 17:10:02 07/20/19 24 07/23/2023 CBC (INCL UDES DIFF/ PLT) platelet count 240 thous and/u L 140-40 0 normal Not Available [address], [address], 07/23/2023 17:10:02 07/20/19 24 07/23/2023 CBC (INCL UDES DIFF/ PLT) MPV 11.3 fL 7.5-12 .5 normal Not Available [address], [address], 07/23/2023 17:10:02 07/20/19 24 07/23/2023 CBC (INCL UDES DIFF/ PLT) absolute neutrophils 2941 cells /uL 1500-7 800 normal Not Available [address], [address], 07/23/2023 17:10:02 07/20/19 24 07/23/2023 CBC (INCL UDES DIFF/ PLT) absolute lymphocytes 2227 cells /uL 850-39 00 normal Not Available [address], [address], 07/23/2023 17:10:02 07/20/19 24 07/23/2023 CBC (INCL UDES DIFF/ PLT) absolute monocytes 360 cells /uL 200-95 0 normal Not Available [address], [address], 07/23/2023 17:10:02 07/20/19 24 07/23/2023 CBC (INCL UDES DIFF/ PLT) absolute eosinophils 191 cells /uL 15-500 normal Not Available [address], [address], 07/23/2023 17:10:02 07/20/19 24 07/23/2023 CBC (INCL UDES DIFF/ PLT) absolute basophils 81 cells /uL 0-200 normal Not Available [address], [address], 07/23/2023 17:10:02 07/20/19 24 07/23/2023 CBC (INCL UDES DIFF/ PLT) neutrophils 50.7 % normal Not Available [address], [address], 07/23/2023 17:10:02 07/20/19 24 07/23/2023 CBC (INCL UDES DIFF/ PLT) lymphocytes 38.4 % normal Not Available [facility] [address], [address], 07/23/2023 17:10:02 07/20/19 24 07/23/2023 CBC (INCL UDES DIFF/ PLT) monocytes 6.2 % normal Not Available [facility] [address], [address], 07/23/2023 17:10:02 07/20/19 24 07/23/2023 CBC (INCL UDES DIFF/ PLT) eosinophils 3.3 % normal Not Available [address] [address] [place], [address], 07/23/2023 17:10:02 07/20/19 24 07/23/2023 CBC (INCL UDES DIFF/ PLT) basophils 1.4 % normal Not Available [address] [place], [address], 07/23/2023 17:10:02 07/20/19 24 07/23/2023 VITAM IN B12/F OLATE , SERUM PANEL vitamin B12 535 pg/mL 200-11 00 normal Not Available [address], [address], 07/23/2023 17:10:04 07/20/19 24 07/23/2023 VITAM IN B12/F OLATE , SERUM PANEL folate, serum >24.0 NG/mL normal Refer ence Range Low: <3.4 Borde rline : 3.4-5 .4 Amanda l: >5.4 Not Available [address], [address], 07/23/2023 17:10:04 07/20/19 24 07/23/2023 GENET SCREE N, IFA, W/REF L TITER AND PATTE RN GENET screen, ifa NEGATI VE negati ve normal GENET IFA is a first line scree n for detec ting the prese nce of up to appro ximat silvio 150 autoa ntibo dies in vario us autoi mmune disea ses. A negat yanely GENET IFA resul t sugge sts an GENET-a ssoci ated autoi mmune disea se is not prese nt at this time, but is not defin itive . If there is high clini ravi suspi cion for Sjogr en's syndr ome, testi ng for anti- SS-A/ Ro antib jose shoul d be consi dered . Anti- [place]-1 antib jose shoul d be consi dered for clini flora suspe cted infla mmato ry myopa herbert . AC-0: Negat yanely Inter natio nal Conse nsus on GENET Li rns (http s://d oi.or g/10. 1515/ [facility]- 2017- 0052) For addit ional infor eliezer pascal e refer to http: //[facility].Que stDia gnost ics.c om/fa q/FAQ 177 (This link is being provi ded for infor angelique loomis/ educa raymundo l purpo ses only. ) Not Available [facility] [address] [address] [place], [address], 07/23/2023 17:10:04 07/20/19 24 07/23/2023 RHEUM ATOID FACTO R rheumatoid factor <14 IU/mL <14 normal Not Available [facility] [address] [address] [place], [address], 07/23/2023 17:10:05 07/20/19 24 07/23/2023 C-ALLIE CTIVE PROTE IN C-reactive protein 1.0 mg/L <8.0 normal Not Available [address] [address] [place], [address], 07/23/2023 17:10:07 07/20/19 24 07/23/2023 INSUL IN insulin 13.4 uIU/m L normal Refer ence Range < or = 18.4 Risk: Optim al < or = 18.4 Moder ate NA High >18.4 Adult cardi ovasc ular event risk categ ory cut point s (opti mal, moder ate, high) are based on Insul in Refer ence Inter jordon studi es perfo rmed at [facility] in 2021. Not Available [facility] [address] [address] [place], [address], 07/23/2023 17:10:08 07/20/19 24 07/23/2023 VITAM IN B6, PLASM A vitamin B6, plasma 24.0 NG/mL 2.1-21 .7 high (Note ) VITAM IN SUPPL EMENT ATION WITHI N 24 HOURS PRIOR TO BLOOD DRAW MAY AFFEC T THE ACCUR ACY OF RESUL TS. THIS TEST WAS DEVEL OPED AND ITS VIRAL TICAL PERFO RMANC E EROS CTERI STICS HAVE BEEN DETER MINED BY [employer]. IT HAS NOT BEEN CLEAR ED OR APPRO BRIANNA BY THE FDA. THIS ASSAY HAS BEEN VALID ATED PURSU ANT TO THE CLIA REGUL ATION S AND IS USED FOR CLINI RAVI PURPO SES. MDF med fusio n [address] [facility] [address] [place] [address] [phone] Santiago hurley MD Not Available [facility] [address] [address] , [place], [address], 07/23/2023 17:10:09 06/29/20 22 06/25/2022 imagi ng/di agnos tic resul t No observ ation record ed. [id number] [facility] [address] [place], [address], 08/30/2022 20:22:35 08/04/19 23 08/04/2022 MAMMO , scree basil, digit al, bilat eral No observ ation record ed. [id number] Not Available 08/30/2022 20:22:35 02/24/20 23 02/22/2023 XR, foot, 3 or more view No observ ation record ed. [email or web address] [address], [place], [address], 07/03/2023 16:15:28 Result Notes None recorded. Problems Name Problem SNOMED Code Status Onset Date Resolution Date Notes Provider Name and Address Organization Details Recorded Time Pain in upper limb 810344470 Active 2021 Not Available [facility] 3 20:21:17 Edema of lower extremity 809667273 Active 2021 Not Available [facility] 3 20:21:17 Cervical radiculiti s 50001881 Active 2021 Not Available [facility] 3 20:21:17 Herpes labialis 2022542 Active 2021 Not Available [facility] 3 20:21:17 Long-term drug therapy Active 2021 Not Available [facility] 3 20:21:17 Mixed hyperlipid emia 987589269 Active 2019 Not Available [facility] 3 20:21:17 Heart murmur 45110216 Active 2021 Not Available [facility] 3 20:21:17 Weight gain 3020639 Active 2022 BOYD Reza [address], [place], [address] , [employer] 3 13:00:29 Mitral valve regurgitat ion 65138519 Active 2022 BOYD Reza [address], [place], [address] , [employer] 3 11:41:49 Tricuspid valve regurgitat ion 478337500 Active 2022 BOYD eRza [address], [address], [place], [address] , [employer] 3 11:42:03 Multiple joint pain 09807107 Active 2022 BOYD Reza [address], [place], [address] , [employer] 3 12:04:34 Pain in both feet 6638568275496 9102 Active 2022 BOYD Reza [address], [place], [address] , [employer] 3 12:05:20 Notes:05/2020-COVID Pos Problem Notes None recorded. Procedures Surgical History Date Name Laterality Status Provider Name and Address Organization Details Recorded Time Incision of foot fascia completed Not Available [facility] 08/30/2022 20:20:26 Imaging Results Imaging Date Name Status LastModified by Organiz ation Details LastModified Time 06/25/2022 imaging/diagno stic result completed [id number] [facility] [address] [place], [address], 08/30/2022 20:22:35 08/04/2022 MAMMO, screening, digital, bilateral completed [id number] Information not available 08/30/2022 20:22:35 02/22/2023 XR, foot, 3 or more view completed [email or web address] [facility] [address] [facility], [place], [address], 07/03/2023 16:15:28 Procedure Notes None recorded. Medical Equipment None Reported. Allergies No known drug allergies Medications Name Sig Start Date Stop Date Status Note LastModified by Organization Details LastModified Time cyclobenz aprine 10 mg tablet TAKE 1 TABLET BY MOUTH TWICE DAILY NEEDED FOR MUSCLE SPASM 08/24 completed Not Available Not Available Not Available atorvasta tin 20 mg tablet Take 1 tablet every day by oral route. active Not Available Not Available No t Available azithromy clay 250 mg tablet TAKE 2 TABLETS (500 MG) BY ORAL ROUTE ONCE DAILY FOR 1 DAY THEN 1 TABLET (250 MG) BY ORAL ROUTE ONCE DAILY FOR 4 DAYS active Not Available Not Available No t Available valacyclo vir 1 gram tablet TAKE TWO TABLETS BY MOUTH TWICE DAILY FOR ONE DAY AT ONSET OF COLD SORE NEEDED active Not Available Not Available No t Available prednison e 20 mg tablet TAKE 2 TABLETS BY MOUTH ONCE DAILY FOR 5 DAYS 08/23 completed Not Available Not Available Not Available phentermi ne 37.5 mg tablet TAKE 1 TABLET BY MOUTH ONCE DAILY active Not Available Not Available No t Available ketorolac 10 mg tablet TAKE 1 TABLET BY MOUTH EVERY 6 HOURS NEEDED FOR PAIN 08/24 completed Not Available Not Available Not Available gabapenti n 300 mg capsule TAKE ONE CAPSULE BY MOUTH ON DAY ONE, THEN TWO CAPSULES ON DAY TWO, AND THEN THREE CAPSULES ON DAY THREE AND EVERY DAY AFTER THAT INSTRUCT ED BY YOUR MD 08/24 completed Not Available Not Available Not Available triamtere ne 37.5 mg-hydroc hlorothia zide 25 mg tablet TAKE 1 TABLET BY MOUTH ONCE DAILY NEEDED 2022 active Not Available Not Available Not Avai lable methylpre dnisolone 4 mg tablets in a dose pack FOLLOW PACKAGE DIRECTIO NS 08/23 completed Not Available Not Available Not Available rosuvasta tin 10 mg tablet TAKE 1 TABLET BY MOUTH ONCE DAILY IN THE EVENING 02/22 completed Not Available Not Available Not Available nitrofura ntoin monohydra te/macroc rystals 100 mg capsule 04/03 completed Not Available Not Available Not Available Iron (ferrous sulfate) PRN 05/06 completed Not Available Not Available Not Available multivita min tk one t po qd 2021 active Not Available Not Available Not Avai lable Juice Plus 4 capsules daily 2017 active two fruit/tw o vegetabl e Not Available Not Available Not Available Jublia 10 % topical solution with applicato r APPLY TO AFFECTED TOENAIL( S) BY TOPICAL ROUTE ONCE DAILY 02/16 completed Not Available Not Available Not Available Saxenda 3 mg/0.5 mL (18 mg/3 mL) subcutane ous pen injector week1: 0.6mg SQ dailywee k2: 1.2mg SQ dailywee k3: 1.8mg SQ dailywee k4: 2.4mg SQ dailywee k5 and after: 3mg SQ daily 03/06 completed Not Available Not Available Not Available Vitals Date Recorded Body mass index (BMI) Body height Oxygen saturation Oxygen saturation in Arterial blood by Pulse oximetry Heart rate Body temperature Body weight Systolic blood pressure Diastolic blood pressure Provider Name and Address Organization Details Last Updated DateTime 1 35.1 kg/m2 162.56 cm 98 % 98 % 90 /min 98.2 [degF] 11318.6 4 g 122 mm[Hg] 80 mm[Hg] Not Available [facility] 3 20:20:50 Date Recorded Body mass index (BMI) Heart rate Body height Oxygen saturation Oxygen saturation in Arterial blood by Pulse oximetry Respiratory rate Body temperature Body weight Systolic blood pressure Diastolic blood pressure Provider Name and Address Organization Details Last Updated DateTime 2 35.4 kg/m2 92 /min 162.56 cm 98 % 98 % 16 /min 98.1 [degF] 97163.3 9 g 120 mm[Hg] 66 mm[Hg] Not Available [facility] 3 20:20:50 Date Recorded Body mass index (BMI) Body height Oxygen saturation Oxygen saturation in Arterial blood by Pulse oximetry Heart rate Respiratory rate Body temperature Body weight Systolic blood pressure Diastolic blood pressure Provider Name and Address Organization Details Last Updated DateTime 3 28.5 kg/m2 162.56 cm 98 % 98 % 78 /min 16 /min 97.7 [degF] 03605.3 3 g 120 mm[Hg] 80 mm[Hg] Not Available [facility] 3 20:20:50 Date Recorded Body height Body temperature Body mass index (BMI) Body weight Respiratory rate Oxygen saturation Oxygen saturation in Arterial blood by Pulse oximetry Heart rate Systolic blood pressure Diastolic blood pressure Provider Name and Address Organization Details Last Updated DateTime 3 162.56 cm 98.3 [degF] 28.2 kg/m2 00612.1 5 g 16 /min 98 % 98 % 93 /min 118 mm[Hg] 72 mm[Hg] NIDHI Reyna [place] [facility] [place] [employer] 3 11:38:20 Social History Question Answer Notes LastModified by Organizat ion Details LastModified Time Tobacco Smoking Status Never Smoker Not Available [facility] 08/30/2022 20:20:17 Do You Have An Advance Directive? No [id number] Information not available 08/30/2022 What Is Your Level Of Alcohol Consumption? Occasional MIGRATION.86162 12045 Information not available 08/30/2022 Do You Wear A Helmet When Biking? Yes MIGRATION.22455 37013 Information not available 08/30/2022 What Is Your Level Of Caffeine Consumption? Heavy MIGRATION.41394 86244 Information not available 08/30/2022 How Much Tobacco Do You Chew? None MIGRATION.30395 44017 Information not available 08/30/2022 In The 14 Days Before Symptom Onset, Have You Had Close Contact With A Laboratory-confi rmed COVID-19 While That Case Was Ill? No MIGRATION.39429 84209 Information not available 08/30/2022 In The 14 Days Before Symptom Onset, Have You Had Close Contact With A Person Who Is Under Investigation For COVID-19 While That Person Was Ill? No MIGRATION.47964 63681 Information not available 08/30/2022 What Type Of Diet Are You Following? REGULAR MIGRATION.34873 05688 Information not available 08/30/2022 Which Illicit Or Recreational Drugs Have You Used? None MIGRATION.83426 609[address] Information not available 08/30/2022 Do You Or Have You Ever Used E-cigarettes Or Vape? Never Used Electronic Cigarettes MIGRATION.89995 15891 Information not available 08/30/2022 What Is The Highest Grade Or Level Of School You Have Completed Or The Highest Degree You Have Received? 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 No MIGRATION.76911 28345 Information not available 08/30/2022 What Is The Fluoride Status Of Your Home? Unknown MIGRATION.71913 44153 Information not available 08/30/2022 Do You Use Insect Repellent Routinely? No MIGRATION.12405 85184 Information not available 08/30/2022 Where Do You Live? [facility] MIGRATION.76829 85344 Information not available 08/30/2022 Do You Have A Medical Power Of Rest Room Matron? No MIGRATION.77139 09418 Information not available 08/30/2022 What Was The Date Of Your Most Recent Tobacco Screening? 02/16/2022 MIGRATION.19061 19375 Information not available 08/30/2022 Do You Have Any Pets? Yes MIGRATION.89704 06943 Information not available 08/30/2022 What Is Your Relationship Status? MIGRATION.62871 56669 Information not available 08/30/2022 Do You Use Your Seat Belt Or Car Seat Routinely? Yes MIGRATION.81223 90270 Information not available 08/30/2022 Do You Have Smoke And Carbon Monoxide Detectors In Your Home? Yes MIGRATION.13900 88982 Information not available 08/30/2022 Are You Passively Exposed To Smoke? No MIGRATION.52048 04609 Information not available 08/30/2022 Do You Or Have You Ever Used Smokeless Tobacco? Never Used Smokeless Tobacco MIGRATION.27348 03627 Information not available 08/30/2022 Are There Any Smokers In Your House? No MIGRATION.81808 90371 Information not available 08/30/2022 How Much Tobacco Do You Smoke? No MIGRATION.58133 32891 Information not available 08/30/2022 Do You Feel Stressed (tense, Restless, Nervous, Or Anxious, Or Unable To Sleep At Night)? [id number] MIGRATION.48468 81141 Information not available 08/30/2022 Do You Use Any Illicit Or Recreational Drugs? No MIGRATION.71200 49532 Information not available 08/30/2022 Do You Use Sunscreen Routinely? Yes MIGRATION.60173 37286 Information not available 08/30/2022 Have You Recently Traveled Abroad? No MIGRATION.50057 44168 Information not available 08/30/2022 Do You Have Any Dietary Restrictions? No MIGRATION.00624 86853 Information not available 08/30/2022 Do You Or Have You Ever Used Any Other Forms Of Tobacco Or Nicotine? No MIGRATION.40734 88270 Information not available 08/30/2022 Sex: Unknown Functional Status Question Answer Note LastModified by Organizat ion Details LastModified Time What is your exercise level? Moderate [id number] 6 Information not available 08/30/2022 Mental Status None recorded. Family History Relationship Description Onset Age of this Age Resolved Age Notes LastModified by Organization Details LastModified Time Mother Coronary arterioscler osis MIGRATION.937 [id number] Not available 08/30/2022 20:20:27 Unspecified Relation Adult attention deficit hyperactivit y disorder Child MIGRATION.054 [id number] Not available 08/30/2022 20:20:27 Paternal Grandfather Myocardial infarction MIGRATION.204 [id number] Not available 08/30/2022 20:20:27 Medical History Condition Response OBESITY Y Gynecological History Statement/Question Response Menses Monthly Y Abnormal Pap N Date of Last Pap 08/30/2021 Current Control Method Partner Vas ectomy Sexually Active? Y Obstetrics History GPAL:G 4 P 0 0 0 4 Type Value Living 4 Total 4 Immunizations Vaccine Type Date Status Note Provider Nam e and Address Organization Details Recorded Time influenza, unspecified formulation 9 completed Not Available [facility] 08/30/2022 20:22:28 Past Encounters Encounter ID Performer Location Encounter Start Date Encounter Closed Date Diagnosis/Indication Diagnosis SNOMED-CT Code Diagnosis ICD10 Code Diagnosis Note [id number] [facility] [address] [place] [address] 12/02/2020 00:00:00 12/25/2020 19:52:04 [id number] [facility] [address] [place], [place] [address] 06/02/2021 00:00:00 06/29/2021 00:00:55 [id number] [facility] [address] [place], [place] [address] 12/01/2021 00:00:00 12/01/2021 15:35:21 [id number] [facility] [address] [place], [place] [address] 02/16/2022 00:00:00 02/26/2022 17:16:57 [id number] [facility] [address] [place] [address] 08/24/2022 00:00:00 08/26/2022 18:13:27 [id number] BOYD Reza [facility] [address] [place], [place] [address] 02/22/2023 11:33:46 02/22/2023 12:10:02 Mixed hyperlipidemia 634612757 E78.2 pt stopped her statin. wants to see labs now after weight loss Long-term drug therapy 843305710 Z79.899 all labs are due Adult heal th examination 271720545 Z00.01 well exam completed Edema of l ower extremity 324494707 R60.0 stable on maxzide 37.5mg Mitral jordon ve regurgitation 67694377 I34.0 trace noted on echo hx. Tricuspid valve regurgitation 835232177 I07.1 trace noted on echo hx. Diabetes m ellitus screening 060660201 Z13.1 screening diabetes due Multiple joint pain 3567 8005 M25.50 check CRP, ESR, RA, Uric acid and GENET panel. Pain in both feet 818872 8041 9117010 M79.672 check xray foot Health Concerns Section Related Observation LastModified by Organization Detai ls LastModified Time None Recorded Concern Status LastModified by Organization Details LastModified Time None Recorded Advance Directives Directive N: Payers Encounter Date Sequence Insurance Name Policy Number Policy Urena Covered Member ID Urena Member ID Guarantor Name 02/22/2023 1 [facility]: (PPO) [id number] Riley Shane [id number] Kaye Shane Notes Date Note Type Note Provider Name and Address Organization Details Recorded Time 06/02/20 21 text/htm l HyperlipidemiaReported bypatient.Control:usually well controlled; improving; at goal Compliance:compliant; compliant with diet; exercises Complications:no coronary artery disease; no peripheral artery disease; no cardiovascular diseaseHypertensionReported bypatient.Onset/Timing:better Self Care:not under emotional stress Associated Symptoms:no shortness of breath; no fatigue; no palpitations; no decline in exercise capacity; no snoring Not Available THEMA 06/29/2021 00:00:55 02/17/20 22 text/htm l HyperlipidemiaReported bypatient.Duration:chronic Control:usually well controlled; improving Current Therapy:currently taking: (rosuvastatin 10mg) Compliance:compliant; compliant with diet; exercises Complications:no coronary artery disease; no peripheral artery disease; no cardiovascular disease Not Available THEMA 02/26/2022 17:16:57 08/24/19 23 text/htm l HyperlipidemiaReported bypatient.Duration:chronic Control:usually well controlled Current Therapy:she stopped taking her statin in May. Compliance:compliant; compliant with diet; exercises Complications:no coronary artery disease; no peripheral artery disease; no cardiovascular disease Not Available THEMA 08/26/2022 18:13:27 02/23/20 23 text/htm l HyperlipidemiaReported bypatient.Duration:chronic Control:usually well controlled Compliance:compliant Complications:no coronary artery disease; no peripheral artery disease; no cardiovascular disease Wellness BOYD Reza [address] [place] [address], [facility] [address], [place], [address], THEMA 02/28/2023 21:32:29 OBGyn Episode No OBEpisode recorded.
--- OUTSIDE RECORDS SUMMARY | 2024-09-15 14:21 | XMS_ITS | Referral Summary ---
Author Organization [facility] Address [address] [place] [address] Care Team Providers Care Diaper Machine Tender Name Role Phone Unavailable Primary Care Provider Unavailabl e Source Comments [facility],non-owned Affiliates and Associated Physician Practices is amultiple site organization consisting of ambulatory clinics and hospital sitesin [place], [place], [place] and [place]. This disclosure is being madepursuant to the Care Everywhere program and may not contain all information available regarding this patient. Last updated 18.[facility] [employer] Social History Tobacco Use Types Packs/Day Years Used Date Smoking Tobacco: Never Assessed Sex and Gender Information Value Date Recorded Sex Assigned at Not on file Gender Identity Not on file Sexual Orientation Not on file Plan of Treatment Not on file
--- OUTSIDE RECORDS SUMMARY | 2024-09-15 14:21 | XMS_ITS | Data Portability ---
Author Organization [facility] [place] Address [address] [place] [address] Care Team Providers Care Proofer Apprentice Name Role Phone DREW ALBRECHT Primary Care Provider Unavailab le Assessment Encounter Date Assessment Date Assessment LastModified by Organization Details LastModified Time 05/21/2024 05/21/2024 mammogram UTD cologuard utd still within the past 3 years labs due pap smear due eye exam UTD dental exam UTD Not available 06/01/2024 18:29:34 Plan of Treatment Reminders Order Date Submit Date Provider Last Modified By Organization Details Last Modified Time Details Appointments None recorded. Lab TSH + free T4, serum 024 KIRSTIE [facility], [address], [place], [address], 4 09:34:31 lipid panel, serum 024 [email or web address] [facility], [address], [place], [address], 5 10:00:36 CMP, serum or plasma 024 [email or web address] [facility], [address], [place], [address], 5 10:00:36 CBC w/ auto diff 024 024 [email or web address] [facility], [address], [place], [address], 5 10:00:36 vitamin B12 + folate, serum or blood 024 [email or web address] [facility], [address], [place], [address], 5 10:00:36 HbA1c (hemoglob in A1c), blood 024 [email or web address] [facility], [address], [place], [address], 5 10:00:36 insulin, serum 024 [email or web address] [facility], [address], [place], [address], 5 10:00:36 Referral None recorded. Procedures None recorded. Surgeries None recorded. Imaging None recorded. Medication Orders None recorded. Patient TargetsNo targets recorded. Patient Instructions Encounter Date Encounter Id Patient Instructions Last Modified By Organization Details Last Modified Time 05/21/2024 [id number] A healthy lifestyle: care instructions Not available 05/21/2024 16:03:52 Reason for Referral None Reported. Results Created Date Observation Date Name Description Value Unit Range Abnormal Flag Note LastModifiedBy Organization Detail LastModifiedTime Result Notes None recorded. Problems Name Problem SNOMED Code Status Onset Date Resolution Date Notes Provider Name and Address Organization Details Recorded Time Body mass index 30+ - obesity 561417121 Active 024 Rajesh Love MA null, [place] - [facility] 4 15:37:24 Swelling of bilateral lower limbs 798667323 Active BOYD Reza Attn: Andres perez,[address] [place], [address], [place] [facility] 4 18:29:54 Obesity 404892008 Active 024 BOYD Reza Attn: Andres perez,[address] [place], [address] 4 18:30:03 Long-term drug therapy Active 024 BOYD Reza Attn: Andres perez,[address] [facility], [place], [address], [facility] 4 18:30:14 Problem Notes None recorded. Medical Equipment None Reported. Allergies No known drug allergies Medications Name Sig Start Date Stop Date Status Note LastModified by Organization Details LastModified Time phentermine 37.5 mg tablet TAKE 1 TABLET BY MOUTH ONCE DAILY 05/21 completed Not Available Not Available Not Available alprazolam 0.5 mg tablet TAKE ONE TABLET BY MOUTH THE NIGHT BEFORE APPOINT MENT, THEN ONE TABLET 1 HOUR BEFORE APPOINT MENT. 05/21 completed Not Available Not Available Not Available triamterene 37.5 mg-hydrochlor othiazide 25 mg tablet TAKE 1 TABLET BY MOUTH ONCE DAILY NEEDED 2024 active Not Available Not Available Not Avai lable Vitals Date Recorded Body weight Body mass index (BMI) Body height Oxygen saturation Oxygen saturation in Arterial blood by Pulse oximetry Heart rate Respiratory rate Systolic blood pressure Diastolic blood pressure Provider Name and Address Organization Details Last Updated DateTime 4 31300.4 g 32.4 kg/m2 160.02 cm 100 % 100 % 79 /min 18 /min 130 mm[Hg] 82 mm[Hg] Rajesh Love MA [facility] 4 15:39:17 Date Recorded Systolic blood pressure Diastolic blood pressure Provider Name and Address Organization Details Last Updated DateTime 05/21/2024 120 mm[Hg] 80 mm[Hg] BOYD Reza Attn: Accounting,[address] [facility], [place], [address], [facility] 05/21/2024 16:04:57 Social History Question Answer Notes LastModified by Organizat ion Details LastModified Time Tobacco Smoking Status Never Smoker Rajesh Love MA null, [facility] 05/21/2024 15:36:52 Do You Have An Advance Directive? No Information not available 05/21/2024 What Is Your Level Of Alcohol Consumption? None Information not available 05/21/2024 Are You Blind Or Do You Have Difficulty Seeing? No Glasses Information not available 05/21/2024 What Is Your Level Of Caffeine Consumption? Moderate Information not available 05/21/2024 In The 14 Days Before Symptom Onset, Have You Had Close Contact With A Laboratory-confir med COVID-19 While That Case Was Ill? No Information not available 05/21/2024 In The 14 Days Before Symptom Onset, Have You Had Close Contact With A Person Who Is Under Investigation For COVID-19 While That Person Was Ill? No Information not available 05/21/2024 Have You Been To An Area Known To Be High Risk For COVID-19? No Information not available 05/21/2024 Are You Currently Employed? Yes Information not available 05/21/2024 Are You Deaf Or Do You Have Serious Difficulty Hearing? No Information not available 05/21/2024 What Type Of Diet Are You Following? 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 No Information not available 05/21/2024 What Was The Date Of Your Most Recent Tobacco Screening? 05/21/2024 Information not available 05/21/2024 What Is Your Relationship Status? Information not available 05/21/2024 Do You Use Your Seat Belt Or Car Seat Routinely? Yes Information not available 05/21/2024 Do You Have Smoke And Carbon Monoxide Detectors In Your Home? Yes Information not available 05/21/2024 Do You Feel Stressed (tense, Restless, Nervous, Or Anxious, Or Unable To Sleep At Night)? EU7121-5 Information not available 05/21/2024 Do You Use Any Illicit Or Recreational Drugs? No Information not available 05/21/2024 Do You Use Sunscreen Routinely? Yes Information not available 05/21/2024 Has Tobacco Cessation Counseling Been Provided? No Information not available 05/21/2024 Do You Or Have You Ever Used Any Other Forms Of Tobacco Or Nicotine? No Information not available 05/21/2024 Sex: Female Functional Status Question Answer Note LastModified by Organizat ion Details LastModified Time Are you able to care for yourself? Yes Information not available 05/21/2024 What is your exercise level? Occasional Information not available 05/21/2024 Mental Status None recorded. Family History Nothing Reported. Medical History No medical history recorded. Gynecological History Statement/Question Response Menses Monthly N Duration of Flow (days) Obstetrics History GPAL:G 4 P 4 0 0 4 Type Value Full Term 4 Induced 0 Spontaneous 0 Premature 0 Living 4 Total 4 Immunizations Vaccine Type Date Status Note Provider Nam e and Address Organization Details Recorded Time COVID-19, mRNA, LNP-S, PF, 100 mcg/0.5mL dose or 50 mcg/0.25mL dose 07/27/2020 completed CARMEN [place], [place] - [facility] 05/21/2024 15:38:06 COVID-19, mRNA, LNP-S, PF, 100 mcg/0.5mL dose or 50 mcg/0.25mL dose 06/29/2020 completed CARMEN [place], [place] [facility] 05/21/2024 15:38:06 Influenza, split virus, trivalent, PF 05/14/2024 completed CARMEN [place], [place] [facility] 05/21/2024 15:38:06 Influenza, split virus, quadrivalent, PF 05/22/2023 completed CARMEN [place], [place] - [facility] 05/21/2024 15:38:06 Past Encounters Encounter ID Performer Location Encounter Start Date Encounter Closed Date Diagnosis/Indication Diagnosis SNOMED-CT Code Diagnosis ICD10 Code Diagnosis Note [id number] BOYD Reza [facility] [place] [address] [place] [address] 05/21/2024 15:05:19 05/21/2024 16:10:08 Body mass index 30+ - obesity 965577728 Z68.32 BMI is 32.4 Obesity 974394938 E66.9 discussed healthy diet, exercise, controllin g carbohydra sanajna and added sugars in the diet Swelling o f bilateral lower limbs 550984861 M79.89 Patient takes her Maxzide low-dose for trace swelling over bilateral lower extremitie s 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 She does not have any swelling today and medication is still working effectivel y for her. Cholesterol screening 27 6891159 Z13.220 Fasting lipid panel is due Diabetes m ellitus screening 242463070 Z13.1 Annual diabetes screening is due Long-term drug therapy 547705590 Z79.891 cmp, cbc and b12, folate labs are due Thyroid di sorder screening 642979627 Z13.29 Thyroid function testing ordered for annual review Adult heal th examination 006225977 Z00.00 Annual wellness exam completed Health Concerns Section Related Observation LastModified by Organization Detai ls LastModified Time None Recorded Concern Status LastModified by Organization Details LastModified Time None Recorded Advance Directives Directive N: Payers Encounter Date Sequence Insurance Name Policy Number Policy Urena Covered Member ID Urena Member ID Guarantor Name 05/21/2024 1 [place] [id number] Riley Shane [id number] Kaye Shane Notes Date Note Type Note Provider Name and Address Organization Details Recorded Time 05/21/2024 text/html Patient is here for routine annual wellness exam. 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 She is due for labs. BOYD Reza Attn: Accounting,[address] [facility], [place], [address], [place] [facility] 06/01/2024 18:30:56 OBGyn Episode No OBEpisode recorded.
--- OUTSIDE RECORDS SUMMARY | 2024-09-15 14:21 | XMS_ITS | Referral Summary ---
Author Organization [facility] [place] [facility] Address [address] [place] [address] Care Team Providers Care Child Care Cook Name Role Phone Argelia Huitronkelvin NIX Primary [...] on file Legal Sex Female 12:34 AM TRUST CLERK Gender Identity Not on file Sexual Orientation Not on file Last Filed Vital Signs Vital Sign Reading Time Taken Comments Blood Pressure 105/59 06/25/2022 7:49 PM TRUST CLERK Pulse 103 06/25/2022 7:49 PM TRUST CLERK Temperature 36.8 C (98.3 F) 06/25/2022 7:49 PM TRUST CLERK Respiratory Rate 18 06/25/2022 7:49 PM TRUST CLERK Oxygen Saturation 98% 06/25/2022 7:49 PM TRUST CLERK Inhaled Oxygen Concentration - - Weight 74.8 kg (165 lb) 06/25/2022 7:49 PM TRUST CLERK Height 162.6 cm (5' 4 ) 10/23/2014 11:54 AM CDT Body Mass Index 28.32 10/23/2014 11:54 AM CDT Plan of Treatment Not on file Procedures Procedure Name Priority Date/Time Associated Diagnosis Comments THINPREP PAP Routine 08/12/2014 1:00 PM TRUST CLERK from Last 3 Months or Most Recently Relevant to Health Maintenance Results * ThinPrep Pap (08/12/2014 1:00 PM TRUST CLERK) Thin Prep Pap Smear SEE BELOW () 08/22 10:47 AM TRUST CLERK [facility] HISTORICAL RESULTS Comment: Nurses Educator ThinPrep Cytology Final Report ThinPrep Pap Specimen Source Cervix/Endocervix Specimen Adequacy Satisfactory for interpretation, endocervical cells (transformation zone) present. Interpretation Negative for intraepithelial lesion or malignancy. 08/21/14 Manual Machinist: LAKESHIA Hartman(ASCP) Reviewed by: JUANITO 08/22/14 Verified By: LAKESHIA Solomon(ASCP) electronic signature [facility], Department of Pathology For questions regarding this case, call ext. [phone] CPT Code(s) 13880 Clinical History LMP: 696815 : N : N IUD: N Hormone Therapy: N Postmenopausal: N Previous surgery date and type: N Hysterectomy: N Chemotherapy: N MAURICIO Exposure: N Radiation: N Previous Abnormal Pap? Details: N Diagnostic or Screening Pap Test: Screening Performed by [facility], [address] [place] [id number] [email or web address], Khurram Esparza MD - Lab. Director 08/12/2014 1:00 PM TRUST CLERK 08/12/2014 4:07 PM TRUST CLERK Jose A Wiggins MD LAB PATHOLOGY ORDERABLE S Final Result [facility] HISTORICAL RESULTS from Last 3 Months or Most Recently Relevant to Health Maintenance Insurance [employer] Care Teams Child Care Cook Relationship Specialty Start Date End Date Crissy Huitron PA PCP - General Physician Sales Ledger Administrator 03/30/20
--- OUTSIDE RECORDS SUMMARY | 2024-09-15 14:21 | XMS_ITS | Patient Health Summary ---
Author Organization [facility] Address [address] [place] [address] Care Team Providers Care Physical Therapy Technician Name Role Phone Unavailable Primary Care Provider Unavailabl e Note from [facility],non-owned Affiliates and Associated Physician Practices is amultiple site organization consisting of ambulatory clinics and hospital sitesin [place], [place], [place] and [place]. This disclosure is being madepursuant to the Care Everywhere program and may not contain all information available regarding this patient. Last updated 18.[facility] Social History Tobacco Use Types Packs/Day Years Used Date Smoking Tobacco: Never Assessed Sex and Gender Information Value Date Recorded Sex Assigned at Not on file Gender Identity Not on file Sexual Orientation Not on file
== END 2024-09-15 11:50 | disposition home or self-care (01) ==
LOC: ANHLAB 11:50
PROVIDERS: PCP Physician Assistant; Visit Provider Anesthesiology
DX: Z79.899 Other long term (current) drug therapy (principal)
CPT/HCPCS: 36415; 80048

== ENCOUNTER 2024-09-19 00:13 | Day surgery (SDC) | payer BC, SELFPAY ==
[2024-09-08 08:51] VITALS: BMI 31.2
--- NOTE | 2024-09-08 08:57 | PC.NURSE ---
Report to the Outpatient Waiting Room, entrance under the green pavilion located off [facility], at 0830__ on date _09/19/24__. Planned Procedure Time: _1030_.? Time changes happen often and if your time is changed the preop area will call you the afternoon before. - You and your visitor will be asked to self-screen and do not enter if you have any COVID symptoms. Please call surgeon if you need to reschedule. - A mask is optional within the hospital at this time. Patients may have clear liquids (water, carbonated beverages, clear teas, apple juice) until 3 hours prior to surgery with a maximum of 20 ounces. - No food from midnight until time of surgery and no smoking, or chewing tobacco (or any form of nicotine). No chewing gum, candy or mints. - Infants may have breast milk until 4 hours before surgery, formula 6 hours prior to surgery. - Children will be allowed to drink immediately following surgery.? If applicable, please bring a bottle or sippy cup to assist with drinking. Juice, water, soda, and popsicles are readily available.? For infants on formula, please bring formula the day of surgery.? Pacifiers are allowed. Take only the following medications with a SIP of water on the morning of surgery: NONE DO NOT STOP ANY OF YOUR OTHER PRESCRIPTION MEDICATIONS PRIOR TO SURGERY EXCEPT THE FOLLOWING Hold all vitamins and supplements for 3 days per anesthesiologist. Medications to discontinue per physician SEMIGLUTIDE Date to take last dose_09/06/24 Please no make-up, nail serbian, hairspray, perfume, deodorant, or body powder the day of surgery.? No jewelry (including any body piercings) or valuables the day of surgery, leave them at home.? Please take a shower or bath the night before, or the morning of, surgery with an antibacterial soap.? Wear comfortable, loose fitting clothing.? Children are encouraged to wear pajamas. - Jewelry must be removed prior to entering the operating room.? Rings and piercings that are not removed may be cut off. - The hospital will not accept responsibility for valuables.? - Please leave all valuables, including medications, at home the day of surgery. If you are going home after surgery, a licensed salesperson driver must drive you home.? - NO public transportation without another adult if you receive anesthesia. - We recommend that an adult stay with you for 24 hours following discharge. - We also recommend that you do not drive, make important decision, drink alcoholic beverages, or take any drugs that were not prescribed by your health care provider for at least 24 hours after your discharge time. For Pediatric surgeries, we recommend two adults accompany the child home. Follow any additional instructions given to you from your surgeon. Telephone instructions given to _PATIENT_and asked if any additional questions and then verbalized understanding. Patient advised to call surgeon office or pre surgery nurse liaison [phone] if any additional questions.
--- NOTE | 2024-09-16 12:46 | PM.IMHP ---
H&P: HPI History of Present Illness Date/Time: 09/16/24 12:46 Chief Complaint: Excessive bleeding and suspected uterine polyp Narrative: This 48 patient admitted for hysteroscopy dilatation curettage secondary to excessive heavy bleeding. Ultrasound imaging shows thickened irregular endometrial tissue looks to be a polyp. We will undertake hysteroscopy polypectomy dilatation curettage and Ariadne ablation. Risks and benefits reviewed including not exclusive of , aspiration pneumonia, bleeding, transfusion, perforation injury to bowel, bladder, ureters, or other internal organs with need for open laparotomy. She received the ACOG handout entitled hysteroscopy as well as dilatation curettage in the Ariadne handout. She had all questions answered and asked to proceed Review of Systems Review of Systems: All systems reviewed & are unremarkable except as noted in HPI and below PMFSH Family History Family History Mother Family history of obesity Family history of heart disease in male family member before age 55 Sibling Family history of obesity Grandparent Family history of obesity Family history of multiple sclerosis Family history of renal failure Family history of heart disease in male family member before age 55 Diabetes mellitus Social History Social History Smoking status: Never smoker Alcohol intake: never Substance use: never Living arrangements: with family Meds Home Medications and Allergies Home Medications ?Medication ?Instructions ?Recorded ?Confirmed ?Type semaglutide (weight loss) 1 mg/0.5 0.5 mg subcut WEEKLY 09/08/24 09/08/24 History mL subcutaneous pen injector triamterene 37.5 1 tablet PO .QOD PRN DEPENDENT 09/08/24 09/08/24 History mg-hydrochlorothiazide 25 mg tablet EDEMA Allergies Allergy/AdvReac Type Severity Reaction Status Date / Time No Known Allergies Allergy Mild Verified 09/08/24 08:50 Exam Const: General: cooperative, healthy appearing and comfortable Nutritional Appearance: overweight Orientation/consciousness: oriented to person, oriented to place and oriented to time Resp: Effort & Inspection: normal respiratory effort Cardio: Rate: regular rate Rhythm: regular rhythm Heart sounds: S1 normal heart sound present and S2 normal heart sound present GI: Inspection: normal to inspection : External Female Exam: normal external appearance Speculum Exam - Vagina: normal appearance of the vagina Speculum Exam - Cervix: normal appearance of the cervix Bimanual exam- vagina & uterus: enlarged Bimanual Exam- Adnexa, other: normal adnexae Assessment and Plan Assessment and plan (1) Excessive bleeding: Code(s): R58 - Hemorrhage, not elsewhere classified Status: Acute Plan Proceed with hysteroscopy/dilatation curettage/polypectomy/Ariadne ablation
--- OUTSIDE RECORDS SUMMARY | 2024-09-19 00:16 | XMS_ITS | Clinical Summary ---
Author Organization [facility] Office Center Address [address] [place] [address] Care Team Providers Care Erp Engineer Name Role Phone Argelia Huitronkelvin NIX Primary [...] on file Legal Sex Female 12:34 AM ROUTE MANAGER Gender Identity Not on file Sexual Orientation Not on file Last Filed Vital Signs Vital Sign Reading Time Taken Comments Blood Pressure 105/59 06/25/2022 7:49 PM ROUTE MANAGER Pulse 103 06/25/2022 7:49 PM ROUTE MANAGER Temperature 36.8 C (98.3 F) 06/25/2022 7:49 PM ROUTE MANAGER Respiratory Rate 18 06/25/2022 7:49 PM ROUTE MANAGER Oxygen Saturation 98% 06/25/2022 7:49 PM ROUTE MANAGER Inhaled Oxygen Concentration - - Weight 74.8 kg (165 lb) 06/25/2022 7:49 PM ROUTE MANAGER Height 162.6 cm (5' 4 ) 10/23/2014 [...] Comments THINPREP PAP Routine 08/12/2014 1:00 PM ROUTE MANAGER from Last 3 Months or Most Recently Relevant to Health Maintenance Results * ThinPrep Pap (08/12/2014 1:00 PM ROUTE MANAGER) Thin Prep Pap Smear SEE BELOW () 08/22 10:47 AM ROUTE MANAGER [facility] HISTORICAL RESULTS Comment: Dental Intern ThinPrep Cytology Final Report ThinPrep Pap Specimen Source Cervix/Endocervix Specimen Adequacy Satisfactory for interpretation, endocervical cells (transformation zone) present. Interpretation Negative for intraepithelial lesion or malignancy. 08/21/14 Welder Apprentice Arc: Nani Yeager, CT(ASCP) Reviewed by: JUANITO 08/22/14 Verified By: Petra Taveras, CT(ASCP) electronic signature [facility] Department of Pathology For questions regarding this case, call ext. [phone] CPT Code(s) 62387 Clinical History LMP: [id number] : N : N IUD: N Hormone Therapy: N Postmenopausal: N Previous surgery date and type: N Hysterectomy: N Chemotherapy: N MAURICIO Exposure: N Radiation: N Previous Abnormal Pap? Details: N Diagnostic or Screening Pap Test: Screening Performed by [facility] [employer] [address] [place] [id number] [email or web address], Khurram Esparza MD - Lab. Director 08/12/2014 1:00 PM ROUTE MANAGER 08/12/2014 4:07 PM ROUTE MANAGER Jose A Wiggins MD LAB PATHOLOGY ORDERABLE S Final Result [facility] HISTORICAL RESULTS from Last 3 Months or Most Recently Relevant to Health Maintenance Insurance [employer]IA[employer] ID [employer]Area ID Care Teams Erp Engineer Relationship Specialty Start Date End Date Crissy Huitron PA PCP - General Physician Flexo Folder Gluer Operator 03/30/20
--- OUTSIDE RECORDS SUMMARY | 2024-09-19 00:16 | XMS_ITS | Clinical Summary ---
Author Organization [facility] Address [address] [place] [address] Care Team Providers Care Clinical Case Manager Name Role Phone Unavailable Primary Care Provider Unavailabl e Source Comments [facility],non-owned Affiliates and Associated Physician Practices is amultiple site organization consisting of ambulatory clinics and hospital sitesin [place], [place], [place] and [place]. This disclosure is being madepursuant to the Care Everywhere program and may not contain all informatio navailable regarding this patient. Last updated 18.[facility] [employer] Social History Tobacco Use Types Packs/Day Years [...]
--- OUTSIDE RECORDS SUMMARY | 2024-09-19 00:16 | XMS_ITS | Referral Summary ---
Author Organization [facility] Address [address] [place] [id number] Care Team Providers Care Principal Electrical Engineer Name Role Phone Argelia Huitronkelvin NIX [...] on file Legal Sex Female 12:34 AM SENIOR BI ARCHITECT Gender Identity Not on file Sexual Orientation Not on file Last Filed Vital Signs Vital Sign Reading Time Taken Comments Blood Pressure 105/59 06/25/2022 7:49 PM SENIOR BI ARCHITECT Pulse 103 06/25/2022 7:49 PM SENIOR BI ARCHITECT Temperature 36.8 C (98.3 F) 06/25/2022 7:49 PM SENIOR BI ARCHITECT Respiratory Rate 18 06/25/2022 7:49 PM SENIOR BI ARCHITECT Oxygen Saturation 98% 06/25/2022 7:49 PM SENIOR BI ARCHITECT Inhaled Oxygen Concentration - - Weight 74.8 kg (165 lb) 06/25/2022 7:49 PM SENIOR BI ARCHITECT Height 162.6 cm (5' 4 ) 10/23/2014 11:54 AM CDT Body Mass Index 28.32 10/23/2014 11:54 AM CDT Plan of Treatment Not on file Procedures Procedure Name Priority Date/Time Associated Diagnosis Comments THINPREP PAP Routine 08/12/2014 1:00 PM SENIOR BI ARCHITECT from Last 3 Months or Most Recently Relevant to Health Maintenance Results * ThinPrep Pap (08/12/2014 1:00 PM SENIOR BI ARCHITECT) Thin Prep Pap Smear SEE BELOW () 08/22 10:47 AM SENIOR BI ARCHITECT [facility] HISTORICAL RESULTS Comment: Emergency Man ThinPrep Cytology Final Report ThinPrep Pap Specimen Source Cervix/Endocervix Specimen Adequacy Satisfactory for interpretation, endocervical cells (transformation zone) present. Interpretation Negative for intraepithelial lesion or malignancy. 08/21/14 Compressor Operator: LAKESHIA Hartman(ASCP) Reviewed by: JUANITO 08/22/14 Verified By: LAKESHIA Solomon(ASCP) electronic signature [facility], Department of Pathology For questions regarding this case, call ext. [phone] CPT Code(s) 60576 Clinical History LMP: [id number] : N : N IUD: N Hormone Therapy: N Postmenopausal: N Previous surgery date and type: N Hysterectomy: N Chemotherapy: N MAURICIO Exposure: N Radiation: N Previous Abnormal Pap? Details: N Diagnostic or Screening Pap Test: Screening Performed by [facility], [address] [place] [id number] [email or web address], Khurram Esparza MD - Lab. Director 08/12/2014 1:00 PM SENIOR BI ARCHITECT 08/12/2014 4:07 PM SENIOR BI ARCHITECT Jose A Wiggins MD LAB PATHOLOGY ORDERABLE S Final Result [facility] HISTORICAL RESULTS from Last 3 Months or Most Recently Relevant to Health Maintenance Insurance [employer] PR [employer] Care Teams Principal Electrical Engineer Relationship Specialty Start Date End Date Crissy Huitron PA PCP - General Physician Fitness Coordinator 03/30/20
--- OUTSIDE RECORDS SUMMARY | 2024-09-19 00:17 | XMS_ITS | Data Portability ---
Author Organization [facility] [place] Address [address] [place] [address] Care Team Providers Care Transmitter Tester Name Role Phone DREW ALBRECHT Primary Care [...] 024 KIRSTIE [facility] [address], [place], [address], 4 09:34:31 lipid panel, serum 024 [email or web address] [facility], [address], [place], [address], 5 10:00:36 CMP, serum or plasma 024 [email or web address] [facility], [address], [place], [address], 5 10:00:36 CBC w/ auto diff 024 024 [email or web address] [facility], [address], [place], [address], 5 10:00:36 vitamin B12 + folate, serum or blood 024 [email or web address] [facility], [address], [place], [address], 5 10:00:36 HbA1c (hemoglob in A1c), blood 024 [email or web address] [facility], [address], [place], [address], 5 10:00:36 insulin, serum 024 [email or web address] [facility], [address], [place], [address], 5 10:00:36 Referral None recorded. Procedures None recorded. Surgeries None recorded. Imaging None recorded. Medication Orders None recorded. Patient TargetsNo targets recorded. Patient Instructions Encounter Date Encounter Id Patient Instructions Last Modified By Organization Details Last Modified Time 05/21/2024 [id number] A healthy lifestyle: care instructions Not available 05/21/2024 16:03:52 Reason for Referral None Reported. Results Created Date Observation Date Name Description Value Unit Range Abnormal Flag Note LastModifiedBy Organization Detail LastModifiedTime Result Notes None recorded. Problems Name Problem SNOMED Code Status Onset Date Resolution Date Notes Provider Name and Address Organization Details Recorded Time Body mass index 30+ - obesity 017301798 Active 024 Rajesh Love MA null, [place] [facility] 4 15:37:24 Swelling of bilateral lower limbs 332460114 Active BOYD Reza Attn: Andres perez,[address] [place], [address], [place] [facility] 4 18:29:54 Obesity 472133867 Active 024 BOYD Reza Attn: Andres perez,[address] [place], [address] 4 18:30:03 Long-term drug therapy Active 024 BOYD Reza Attn: Andres perez,[address] [facility], [place], [address], [facility] 4 18:30:14 Problem Notes None recorded. Medical [...] Address Organization Details Last Updated DateTime 4 [address].4 g 32.4 kg/m2 160.02 cm 100 % 100 % 79 /min 18 /min 130 mm[Hg] 82 mm[Hg] Rajesh Love MA [facility] 4 15:39:17 Date Recorded Systolic blood pressure Diastolic blood pressure Provider Name and Address Organization Details Last Updated DateTime 05/21/2024 120 mm[Hg] 80 mm[Hg] BOYD Reza Attn: Accounting,[address] [facility], [place], [address], [facility] 05/21/2024 16:04:57 Social History Question Answer Notes LastModified by Organizat ion Details LastModified Time Tobacco Smoking Status Never Smoker Rajesh Love MA null, [facility] 05/21/2024 15:36:52 Do You Have An Advance [...] Anxious, Or Unable To Sleep At Night)? [id number] Information not available 05/21/2024 Do You Use [...] SNOMED-CT Code Diagnosis ICD10 Code Diagnosis Note [id number] BOYD Reza [facility] [place] [address] [place] [address] 05/21/2024 15:05:19 05/21/2024 16:10:08 Body mass index 30+ - obesity 135772536 Z68.32 BMI is 32.4 Obesity 012844764 E66.9 discussed healthy diet, exercise, controllin g carbohydra sanjana and added sugars in the diet Swelling o f bilateral lower limbs 338507838 M79.89 Patient takes her Maxzide low-dose for trace swelling over bilateral lower extremitie s 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 She does not have any swelling today and medication is still working effectivel y for her. Cholesterol screening 27 8515564 Z13.220 Fasting lipid panel is due Diabetes m ellitus screening 019768282 Z13.1 Annual diabetes screening is due Long-term drug therapy 738586245 Z79.891 cmp, cbc and b12, folate labs are due Thyroid di sorder screening 283662306 Z13.29 Thyroid function testing ordered for annual review Adult heal th examination 371985767 Z00.00 Annual wellness exam completed Health Concerns Section Related Observation LastModified by Organization Detai ls LastModified Time None Recorded Concern Status LastModified by Organization Details LastModified Time None Recorded Advance Directives Directive N: Payers Encounter Date Sequence Insurance Name Policy Number Policy Urena Covered Member ID Urena Member ID Guarantor Name 05/21/2024 1 [place] [id number] Riley Shane [id number] Kaye Shane Notes Date Note Type Note Provider Name and Address Organization Details Recorded Time 05/21/2024 text/html Patient is here for routine annual wellness exam. 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 She is due for labs. BOYD Reza Attn: Accounting,[address] [facility], [place], [address], [place] [facility] 06/01/2024 18:30:56 OBGyn Episode No OBEpisode recorded.
--- OUTSIDE RECORDS SUMMARY | 2024-09-19 00:17 | XMS_ITS | Data Portability ---
Author Organization [place] [facility] [employer], Main Office Address [address] [place] [address] Assessment Encounter Date Assessment Date Assessment LastModified by Organization Details LastModified Time 02/22/2023 02/22/2023 cologuard negative mar 2022 [email or web address] Not available 02/22/2023 11:41:16 Plan of Treatment Reminders Order Date Submit Date Provider Last Modified By Organization Details Last Modified Time Details Appointments None recorded. Lab lipid panel, serum 2022 023 [employer] [facility], [address], [place], [address], 4 17:09:55 C-reactive protein, quantitativ e, serum or plasma 2022 023 [employer] [facility], [address], [place], [address], 4 17:10:07 rf (rheumatoid factor), serum 2022 023 [employer] [facility], [address], [place], [address], 4 17:10:06 erythrocyte sedimentati on rate by westergren method 2022 023 [employer], [address], [place], [address], 4 17:10:00 uric acid, serum or plasma 2022 023 [employer] [facility], [address], [place], [address], 4 17:09:59 GENET (antinuclea r antibodies) screen, ifa, serum 2022 023 [employer] [facility], [address], [place], [address], 4 17:10:04 CBC w/ auto diff 2022 023 [employer] [facility], [address], [place], [address], 4 17:10:02 CMP, serum or plasma 2022 023 [employer] [facility], [address], [place], [address], 4 17:09:56 TSH + free T4, serum 2022 023 [employer] [facility], [address], [place], [address], 4 17:09:54 HbA1c (hemoglobin A1c), blood 2022 023 [employer] [facility], [address], [place], [address], 4 17:09:58 Referral None recorded. Procedures None [...] URINE , ROUTI NE Micro Numbe r: [id number] Test Statu s: Final Speci men [...] Cultu re Trans port Tube. Not Available [facility] [address] [address] [place], [address], 02/24/2022 02:14:41 02/23/2002/24/2022 INSUL IN insulin 14.9 [...] (dete mauro, gluli sine) . Not Available [facility] [address] [address] [place], [address], 02/24/2022 02:14:40 02/23/20 22 02/24/2022 REFLE XIVE URINE CULTU RE reflexive urine culture CULTU RE INDIC ATED - RESUL TS TO FOLLO W Not Available [facility] [address] [address] [place], [address], 02/24/2022 02:14:40 02/23/20 22 02/24/2022 URINA LYSIS , COMPL ETE W/REF CELESTINE TO CULTU RE hyaline cast none seen /lpf none seen normal Not Available [facility] [address] [address] [place], [address], 02/24/2022 02:14:40 02/23/20 22 02/24/2022 URINA LYSIS , COMPL ETE W/REF CELESTINE TO CULTU RE color yellow yellow normal Not Available [address], [address], 02/24/2022 02:14:40 02/23/20 22 02/24/2022 URINA LYSIS , COMPL ETE W/REF CELESTINE TO CULTU RE appearance clear clear normal Not Available [address], [address], 02/24/2022 02:14:40 02/23/20 22 02/24/2022 URINA LYSIS , COMPL ETE W/REF CELESTINE TO CULTU RE specific gravity 1.023 1.001- 1.035 normal Not Available [address], [address], 02/24/2022 02:14:40 02/23/20 22 02/24/2022 URINA LYSIS , COMPL ETE W/REF CELESTINE TO CULTU RE pH 7.0 5.0-8. 0 normal Not Available [address], [address], 02/24/2022 02:14:40 02/23/20 22 02/24/2022 URINA LYSIS , COMPL ETE W/REF CELESTINE TO CULTU RE glucose negati ve negati ve normal Not Available [address], [address], 02/24/2022 02:14:40 02/23/20 22 02/24/2022 URINA LYSIS , COMPL ETE W/REF CELESTINE TO CULTU RE bilirubin negati ve negati ve normal Not Available [address], [address], 02/24/2022 02:14:40 02/23/20 22 02/24/2022 URINA LYSIS , COMPL ETE W/REF CELESTINE TO CULTU RE ketones negati ve negati ve normal Not Available [address], [address], 02/24/2022 02:14:40 02/23/20 22 02/24/2022 URINA LYSIS , COMPL ETE W/REF CELESTINE TO CULTU RE occult blood negati ve negati ve normal Not Available [address], [address], 02/24/2022 02:14:40 02/23/20 22 02/24/2022 URINA LYSIS , COMPL ETE W/REF CELESTINE TO CULTU RE protein negati ve negati ve normal Not Available [address], [address], 02/24/2022 02:14:40 02/23/20 22 02/24/2022 URINA LYSIS , COMPL ETE W/REF CELESTINE TO CULTU RE nitrite negati ve negati ve normal Not Available [address], [address], 02/24/2022 02:14:40 02/23/20 22 02/24/2022 URINA LYSIS , COMPL ETE W/REF CELESTINE TO CULTU RE leukocyte esterase 1+ negati ve abnormal Not Available [address], [address], 02/24/2022 02:14:40 02/23/20 22 02/24/2022 URINA LYSIS , COMPL ETE W/REF CELESTINE TO CULTU RE WBC 0-5 /hpf < or = 5 normal Not Available [address], [address], 02/24/2022 02:14:40 02/23/20 22 02/24/2022 URINA LYSIS , COMPL ETE W/REF CELESTINE TO CULTU RE RBC none seen /hpf < or = 2 normal Not Available [address] [place], [address], 02/24/2022 02:14:40 02/23/20 22 02/24/2022 URINA LYSIS , COMPL ETE W/REF CELESTINE TO CULTU RE squamous epithelial cells 0-5 /hpf < or = 5 Not Available [address], [address], 02/24/2022 02:14:40 02/23/20 22 02/24/2022 URINA LYSIS , COMPL ETE W/REF CELESTINE TO CULTU RE bacteria none seen /hpf none seen normal Not Available [address], [address], 02/24/2022 02:14:40 02/23/20 22 02/24/2022 CBC (INCL UDES DIFF/ PLT) white blood cell count 7.5 thous and/u L 3.8-10 .8 normal Not Available [address], [address], 02/24/2022 02:14:39 02/23/20 22 02/24/2022 CBC (INCL UDES DIFF/ PLT) red blood cell count 4.23 jordyn on/uL 3.80-5 .10 normal Not Available [address], [address], 02/24/2022 02:14:39 02/23/20 22 02/24/2022 CBC (INCL UDES DIFF/ PLT) hemoglobin 11.8 g/dL 11.7-1 5.5 normal Not Available [address], [address], 02/24/2022 02:14:39 02/23/20 22 02/24/2022 CBC (INCL UDES DIFF/ PLT) hematocrit 37.2 % 35.0-4 5.0 normal Not Available [address], [address], 02/24/2022 02:14:39 02/23/20 22 02/24/2022 CBC (INCL UDES DIFF/ PLT) MCV 87.9 fL 80.0-1 00.0 normal Not Available [address], [address], 02/24/2022 02:14:39 02/23/20 22 02/24/2022 CBC (INCL UDES DIFF/ PLT) MCH 27.9 pg 27.0-3 3.0 normal Not Available [address], [address], 02/24/2022 02:14:39 02/23/20 22 02/24/2022 CBC (INCL UDES DIFF/ PLT) MCHC 31.7 g/dL 32.0-3 6.0 low Not Available [address], [address], 02/24/2022 02:14:39 02/23/20 22 02/24/2022 CBC (INCL UDES DIFF/ PLT) RDW 13.1 % 11.0-1 5.0 normal Not Available [address], [address], 02/24/2022 02:14:39 02/23/20 22 02/24/2022 CBC (INCL UDES DIFF/ PLT) platelet count 228 thous and/u L 140-40 0 normal Not Available [address], [address], 02/24/2022 02:14:39 02/23/20 22 02/24/2022 CBC (INCL UDES DIFF/ PLT) MPV 11.1 fL 7.5-12 .5 normal Not Available [address], [address], 02/24/2022 02:14:39 02/23/20 22 02/24/2022 CBC (INCL UDES DIFF/ PLT) absolute neutrophils 4485 cells /uL 1500-7 800 normal Not Available [address], [address], 02/24/2022 02:14:39 02/23/20 22 02/24/2022 CBC (INCL UDES DIFF/ PLT) absolute lymphocytes 2228 cells /uL 850-39 00 normal Not Available [address], [address], 02/24/2022 02:14:39 02/23/20 22 02/24/2022 CBC (INCL UDES DIFF/ PLT) absolute monocytes 450 cells /uL 200-95 0 normal Not Available [address], [address], 02/24/2022 02:14:39 02/23/20 22 02/24/2022 CBC (INCL UDES DIFF/ PLT) absolute eosinophils 278 cells /uL 15-500 normal Not Available [address], [address], 02/24/2022 02:14:39 02/23/20 22 02/24/2022 CBC (INCL UDES DIFF/ PLT) absolute basophils 60 cells /uL 0-200 normal Not Available [address], [address], 02/24/2022 02:14:39 02/23/20 22 02/24/2022 CBC (INCL UDES DIFF/ PLT) neutrophils 59.8 % normal Not Available [address], [address], 02/24/2022 02:14:39 02/23/20 22 02/24/2022 CBC (INCL UDES DIFF/ PLT) lymphocytes 29.7 % normal Not Available [address], [address], 02/24/2022 02:14:39 02/23/20 22 02/24/2022 CBC (INCL UDES DIFF/ PLT) monocytes 6.0 % normal Not Available [facility] [address] [address] [place], [address], 02/24/2022 02:14:39 02/23/20 22 02/24/2022 CBC (INCL UDES DIFF/ PLT) eosinophils 3.7 % normal Not Available [facility] [address] [address] [place], [address], 02/24/2022 02:14:39 02/23/20 22 02/24/2022 CBC (INCL UDES DIFF/ PLT) basophils 0.8 % normal Not Available [facility] [address] [address] [place], [address], 02/24/2022 02:14:39 02/23/20 22 02/24/2022 HEMOG LOBIN [...] Diabe sanjana(A DA). Not Available [facility] [address] [address] [place], [address], 02/24/2022 02:14:39 02/23/20 22 02/24/2022 COMPR EHENS YANELY METAB OLIC PANEL glucose 96 mg/dL 65-99 normal Fasti ng refer ence inter jordon Not Available [address], [address], 02/24/2022 02:14:38 02/23/20 22 02/24/2022 COMPR EHENS YANELY METAB OLIC PANEL urea nitrogen (BUN) 14 mg/dL 7-25 normal Not Available [address], [address], 02/24/2022 02:14:38 02/23/20 22 02/24/2022 COMPR EHENS YANELY METAB OLIC PANEL creatinine 0.75 mg/dL 0.50-0 .99 normal Not Available [address], [address], 02/24/2022 02:14:38 02/23/20 22 02/24/2022 COMPR EHENS [...] kdoqi /gfr% 5Fcal culat or Not Available [address], [address], 02/24/2022 02:14:38 02/23/20 22 02/24/2022 COMPR EHENS YANELY METAB OLIC PANEL BUN/creatini ne ratio not applic able (calc ) 6-22 Not Available [address], [address], 02/24/2022 02:14:38 02/23/20 22 02/24/2022 COMPR EHENS YANELY METAB OLIC PANEL sodium 138 mmol/ L 135-14 6 normal Not Available [address], [address], 02/24/2022 02:14:38 02/23/20 22 02/24/2022 COMPR EHENS YANELY METAB OLIC PANEL potassium 3.9 mmol/ L 3.5-5. 3 normal Not Available [address], [address], 02/24/2022 02:14:38 02/23/20 22 02/24/2022 COMPR EHENS YANELY METAB OLIC PANEL chloride 104 mmol/ L 98-110 normal Not Available [address], [address], 02/24/2022 02:14:38 02/23/20 22 02/24/2022 COMPR EHENS YANELY METAB OLIC PANEL carbon dioxide 31 mmol/ L 20-32 normal Not Available [address], [address], 02/24/2022 02:14:38 02/23/20 22 02/24/2022 COMPR EHENS YANELY METAB OLIC PANEL calcium 8.9 mg/dL 8.6-10 .2 normal Not Available [address], [address], 02/24/2022 02:14:38 02/23/20 22 02/24/2022 COMPR EHENS YANELY METAB OLIC PANEL protein, total 6.1 g/dL 6.1-8. 1 normal Not Available [address], [address], 02/24/2022 02:14:38 02/23/20 22 02/24/2022 COMPR EHENS YANELY METAB OLIC PANEL albumin 3.7 g/dL 3.6-5. 1 normal Not Available [address], [address], 02/24/2022 02:14:38 02/23/20 22 02/24/2022 COMPR EHENS YANELY METAB OLIC PANEL globulin 2.4 g/dL_ (calc ) 1.9-3. 7 normal Not Available [address], [address], 02/24/2022 02:14:38 02/23/20 22 02/24/2022 COMPR EHENS YANELY METAB OLIC PANEL albumin/glob ulin ratio 1.5 (calc ) 1.0-2. 5 normal Not Available [address], [address], 02/24/2022 02:14:38 02/23/20 22 02/24/2022 COMPR EHENS YANELY METAB OLIC PANEL bilirubin, total 0.4 mg/dL 0.2-1. 2 normal Not Available [address], [address], 02/24/2022 02:14:38 02/23/20 22 02/24/2022 COMPR EHENS YANELY METAB OLIC PANEL alkaline phosphatase 79 U/L 31-125 normal Not Available [address], [address], 02/24/2022 02:14:38 02/23/20 22 02/24/2022 COMPR EHENS YANELY METAB OLIC PANEL AST 13 U/L 10-35 normal Not Available [address], [address], 02/24/2022 02:14:38 02/23/20 22 02/24/2022 COMPR EHENS YANELY METAB OLIC PANEL ALT 13 U/L 6-29 normal Not Available [address], [address], 02/24/2022 02:14:38 02/23/20 22 02/24/2022 LIPID PANEL WITH RATIO S cholesterol, total 155 mg/dL <200 normal Not Available [address], [address], 02/24/2022 02:14:38 02/23/20 22 02/24/2022 LIPID PANEL WITH RATIO S HDL cholesterol 45 mg/dL > or = 50 low Not Available [address], [address], 02/24/2022 02:14:38 02/23/20 22 02/24/2022 LIPID PANEL WITH RATIO S triglyceride s 212 mg/dL <150 high If a non-f astin g speci men was colle cted, consi beth repea t trigl yceri de testi ng on a fasti ng speci men if clini flora indic ated. Carlos gatica et al. J. of Clin. Lipid ol. 2015; 9:129 -169. Not Available [address], [address], 02/24/2022 02:14:38 02/23/20 22 02/24/2022 LIPID PANEL [...] 2061- 2068 (http ://ed ucati on.Qu rebekahDi [employer]. com/f aq/FA Q164) Not Available [address] [address] [address] , [place], [address], 02/24/2022 02:14:38 02/23/20 22 02/24/2022 LIPID PANEL WITH RATIO S chol/HDLC ratio 3.4 (calc ) <5.0 normal Not Available [address] [place], [address], 02/24/2022 02:14:38 02/23/20 22 02/24/2022 LIPID PANEL WITH RATIO S LDL/HDL ratio 1.8 (calc ) Below avera ge Risk: <2.34 [place] Risk: 2.35- 4.12 Moder ate Risk: 4.13- 5.56 High Risk: >5.57 Not Available [address] [address] [place], [address], 02/24/2022 02:14:38 02/23/20 22 02/24/2022 LIPID PANEL WITH RATIO S non HDL cholesterol 110 mg/dL _(ravi c) <130 normal For patie nts with diabe sanjana plus 1 major ASCVD risk facto r, treat ing to a non-H DL-C goal of <100 mg/dL (LDL- C of <70 mg/dL ) is consi benjamin a zafar peuti c optio n. Not Available [address] [address] [address] , [place], [address], 02/24/2022 02:14:38 02/23/2002/24/2022 TSH+F REE T4 TSH 3.37 mIU/L normal Refer ence Range > or = 20 Years 0.40- 4.50 Pregn saira Range s First trime ster 0.26- 2.66 Secon d trime ster 0.55- 2.73 Third trime ster 0.43- 2.91 Not Available [address] [address] [place], [address], 02/24/2022 02:14:37 02/23/2002/24/2022 TSH+F REE T4 T4, free 1.1 NG/dL 0.8-1. 8 normal Not Available [address] [address] [place], [address], 02/24/2022 02:14:37 03/15/20 22 03/15/2022 COLOG UARD [...] of 10,00 0 indiv idual s at [facility] risk for color ectal cance r who [...] asymp tomat ic indiv idual s at [place] [facility] risk for color ectal cance r. Follo wing a negat yanely Colog uard resul t, the Ameri can Cance r Socie ty and U.S. Multi -Soci ety Task Force scree basil guide lines recom mend a Colog uard re-sc reeni ng inter jordon of 3 years . Refer ences : [...] 112:1 016-1 030. TEST DESCR IPTIO N: [place] site algor ithmi c viral sis of [...] years or older , who are at [facility] for color ectal cance r (CRC) . Colog uard has been appro brianna for use by the U.[place]. FDA. The perfo rmanc e of Colog uard was estab lishe d in a cross secti onal study of [facility] adult s aged 50-84 . Colog uard [...] of 10,00 0 indiv idual s at [facility] risk for color ectal cance r who [...] at www.c ologu day.c om. Not Available [facility] (Cologuard Orders Only) [address], [place], [address], 03/18/2022 02:20:33 07/20/1907/23/2023 TSH+F REE T4 TSH 2.35 mIU/L normal Refer ence Range > or = 20 Years 0.40- 4.50 Pregn saira Range s First trime ster 0.26- 2.66 Secon d trime ster 0.55- 2.73 Third trime ster 0.43- 2.91 Not Available [facility] [address] [place], [address], 07/23/2023 17:09:54 07/20/19 24 07/23/2023 TSH+F REE T4 T4, free 1.0 NG/dL 0.8-1. 8 normal Not Available [facility] [address] [place], [address], 07/23/2023 17:09:54 07/20/19 24 07/23/2023 LIPID PANEL WITH RATIO S cholesterol, total 203 mg/dL <200 high Not Available [facility] [address] [address] [place], [address], 07/23/2023 17:09:55 07/20/19 24 07/23/2023 LIPID PANEL WITH RATIO S HDL cholesterol 48 mg/dL > or = 50 low Not Available [facility] [address] [place], [address], 07/23/2023 17:09:55 07/20/19 24 07/23/2023 LIPID PANEL WITH RATIO S triglyceride s 188 mg/dL <150 high Not Available [facility] [address] [address] [place], [address], 07/23/2023 17:09:55 07/20/19 24 07/23/2023 LIPID PANEL WITH RATIO S LDL-choleste rol 125 mg/dL _(ravi c) high Refer ence range : <100 [...] com/f aq/FA Q164) Not Available [facility] [address] [address], [place], [address], 07/23/2023 17:09:55 07/20/19 24 07/23/2023 LIPID PANEL WITH RATIO S chol/HDLC ratio 4.2 (calc ) <5.0 normal Not Available [facility] [address] [place], [address], 07/23/2023 17:09:55 07/20/19 24 07/23/2023 LIPID PANEL WITH RATIO S LDL/HDL ratio 2.6 (calc ) Below avera ge Risk: <2.34 [place] Risk: 2.35- 4.12 Moder ate Risk: 4.13- 5.56 High Risk: >5.57 Not Available [address], [address], 07/23/2023 17:09:55 07/20/19 24 07/23/2023 LIPID PANEL WITH RATIO S non HDL cholesterol 155 mg/dL _(ravi c) <130 high For patie nts with diabe sanjana plus 1 major ASCVD risk facto r, treat ing to a non-H DL-C goal of <100 mg/dL (LDL- C of <70 mg/dL ) is yaya stephen pegogo c optio n. Not Available [address], [address], 07/23/2023 17:09:55 07/20/19 24 07/23/2023 COMPR EHENS YANELY METAB OLIC PANEL glucose 89 mg/dL 65-99 normal Fasti ng refer ence inter jordon Not Available [address], [address], 07/23/2023 17:09:56 07/20/19 24 07/23/2023 COMPR EHENS YANELY METAB OLIC PANEL urea nitrogen (BUN) 17 mg/dL 7-25 normal Not Available [address], [address], 07/23/2023 17:09:56 07/20/19 24 07/23/2023 COMPR EHENS YANELY METAB OLIC PANEL creatinine 0.74 mg/dL 0.50-0 .99 normal Not Available [address], [address], 07/23/2023 17:09:56 07/20/19 24 07/23/2023 COMPR EHENS YANELY METAB OLIC PANEL eGFR 101 mL/mi n/1.7 3m2 > or = 60 normal Not Available [address] [address] [place], [address], 07/23/2023 17:09:56 07/20/19 24 07/23/2023 COMPR EHENS YANELY METAB OLIC PANEL BUN/creatini ne ratio SEE NOTE: (calc ) 6-22 Not Repor junie: BUN and Creat inine are withi n refer ence range . Not Available [address] [address] [place], [address], 07/23/2023 17:09:56 07/20/19 24 07/23/2023 COMPR EHENS YANELY METAB OLIC PANEL sodium 137 mmol/ L 135-14 6 normal Not Available [address] [address] [place], [address], 07/23/2023 17:09:56 07/20/19 24 07/23/2023 COMPR EHENS YANELY METAB OLIC PANEL potassium 3.9 mmol/ L 3.5-5. 3 normal Not Available [address] [address] [place], [address], 07/23/2023 17:09:56 07/20/19 24 07/23/2023 COMPR EHENS YANELY METAB OLIC PANEL chloride 104 mmol/ L 98-110 normal Not Available [address] [address] [place], [address], 07/23/2023 17:09:56 07/20/19 24 07/23/2023 COMPR EHENS YANELY METAB OLIC PANEL carbon dioxide 28 mmol/ L 20-32 normal Not Available [address] [address] [place], [address], 07/23/2023 17:09:56 07/20/19 24 07/23/2023 COMPR EHENS YANELY METAB OLIC PANEL calcium 8.9 mg/dL 8.6-10 .2 normal Not Available [address], [address], 07/23/2023 17:09:56 07/20/19 24 07/23/2023 COMPR EHENS YANELY METAB OLIC PANEL protein, total 6.6 g/dL 6.1-8. 1 normal Not Available [address], [address], 07/23/2023 17:09:56 07/20/19 24 07/23/2023 COMPR EHENS YANELY METAB OLIC PANEL albumin 4.0 g/dL 3.6-5. 1 normal Not Available [address], [address], 07/23/2023 17:09:56 07/20/19 24 07/23/2023 COMPR EHENS YANELY METAB OLIC PANEL globulin 2.6 g/dL_ (calc ) 1.9-3. 7 normal Not Available [address], [address], 07/23/2023 17:09:56 07/20/19 24 07/23/2023 COMPR EHENS YANELY METAB OLIC PANEL albumin/glob ulin ratio 1.5 (calc ) 1.0-2. 5 normal Not Available [address], [address], 07/23/2023 17:09:56 07/20/19 24 07/23/2023 COMPR EHENS YANELY METAB OLIC PANEL bilirubin, total 0.4 mg/dL 0.2-1. 2 normal Not Available [address] [place], [address], 07/23/2023 17:09:56 07/20/19 24 07/23/2023 COMPR EHENS YANELY METAB OLIC PANEL alkaline phosphatase 73 U/L 31-125 normal Not Available [address] [address] [place], [address], 07/23/2023 17:09:56 07/20/19 24 07/23/2023 COMPR EHENS YANELY METAB OLIC PANEL AST 13 U/L 10-35 normal Not Available [facility] [address] [place], [address], 07/23/2023 17:09:56 07/20/19 24 07/23/2023 COMPR EHENS YANELY METAB OLIC PANEL ALT 16 U/L 6-29 normal Not Available [facility] [address] [place], [address], 07/23/2023 17:09:56 07/20/19 24 07/23/2023 HEMOG LOBIN [...] on Abbot t platf orm. Not Available [facility] [address] [place], [address], 07/23/2023 17:09:58 07/20/19 24 07/23/2023 URIC ACID uric acid 4.0 mg/dL 2.5-7. 0 normal Thera peuti c targe t for gout patie nts: <6.0 mg/dL Not Available [address], [address], 07/23/2023 17:09:59 07/20/19 24 07/23/2023 SED RATE BY MODIF IED WESTE RGREN sed rate by modified westergren 11 mm/h < or = 20 normal Not Available [address], [address], 07/23/2023 17:10:00 07/20/19 24 07/23/2023 CBC (INCL UDES DIFF/ PLT) white blood cell count 5.8 thous and/u L 3.8-10 .8 normal Not Available [address], [address], 07/23/2023 17:10:02 07/20/19 24 07/23/2023 CBC (INCL UDES DIFF/ PLT) red blood cell count 4.29 jordyn on/uL 3.80-5 .10 normal Not Available [address], [address], 07/23/2023 17:10:02 07/20/19 24 07/23/2023 CBC (INCL UDES DIFF/ PLT) hemoglobin 12.5 g/dL 11.7-1 5.5 normal Not Available [address], [address], 07/23/2023 17:10:02 07/20/19 24 07/23/2023 CBC (INCL UDES DIFF/ PLT) hematocrit 38.6 % 35.0-4 5.0 normal Not Available [address], [address], 07/23/2023 17:10:02 07/20/19 24 07/23/2023 CBC (INCL UDES DIFF/ PLT) MCV 90.0 fL 80.0-1 00.0 normal Not Available [address] [place], [address], 07/23/2023 17:10:02 07/20/19 24 07/23/2023 CBC (INCL UDES DIFF/ PLT) MCH 29.1 pg 27.0-3 3.0 normal Not Available [address], [address], 07/23/2023 17:10:02 07/20/19 24 07/23/2023 CBC (INCL UDES DIFF/ PLT) MCHC 32.4 g/dL 32.0-3 6.0 normal Not Available [address], [address], 07/23/2023 17:10:02 07/20/19 24 07/23/2023 CBC (INCL UDES DIFF/ PLT) RDW 12.5 % 11.0-1 5.0 normal Not Available [address], [address], 07/23/2023 17:10:02 07/20/19 24 07/23/2023 CBC (INCL UDES DIFF/ PLT) platelet count 240 thous and/u L 140-40 0 normal Not Available [address], [address], 07/23/2023 17:10:02 07/20/19 24 07/23/2023 CBC (INCL UDES DIFF/ PLT) MPV 11.3 fL 7.5-12 .5 normal Not Available [address], [address], 07/23/2023 17:10:02 07/20/19 24 07/23/2023 CBC (INCL UDES DIFF/ PLT) absolute neutrophils 2941 cells /uL 1500-7 800 normal Not Available [address], [address], 07/23/2023 17:10:02 07/20/19 24 07/23/2023 CBC (INCL UDES DIFF/ PLT) absolute lymphocytes 2227 cells /uL 850-39 00 normal Not Available [address], [address], 07/23/2023 17:10:02 07/20/19 24 07/23/2023 CBC (INCL UDES DIFF/ PLT) absolute monocytes 360 cells /uL 200-95 0 normal Not Available [address], [address], 07/23/2023 17:10:02 07/20/19 24 07/23/2023 CBC (INCL UDES DIFF/ PLT) absolute eosinophils 191 cells /uL 15-500 normal Not Available [address], [address], 07/23/2023 17:10:02 07/20/19 24 07/23/2023 CBC (INCL UDES DIFF/ PLT) absolute basophils 81 cells /uL 0-200 normal Not Available [address], [address], 07/23/2023 17:10:02 07/20/19 24 07/23/2023 CBC (INCL UDES DIFF/ PLT) neutrophils 50.7 % normal Not Available [address], [address], 07/23/2023 17:10:02 07/20/19 24 07/23/2023 CBC (INCL UDES DIFF/ PLT) lymphocytes 38.4 % normal Not Available [facility] [address], [address], 07/23/2023 17:10:02 07/20/19 24 07/23/2023 CBC (INCL UDES DIFF/ PLT) monocytes 6.2 % normal Not Available [facility] [address], [address], 07/23/2023 17:10:02 07/20/19 24 07/23/2023 CBC (INCL UDES DIFF/ PLT) eosinophils 3.3 % normal Not Available [place] [address] [place], [address], 07/23/2023 17:10:02 07/20/19 24 07/23/2023 CBC (INCL UDES DIFF/ PLT) basophils 1.4 % normal Not Available [address] [place], [address], 07/23/2023 17:10:02 07/20/19 24 07/23/2023 VITAM IN B12/F OLATE , SERUM PANEL vitamin B12 535 pg/mL 200-11 00 normal Not Available [address], [address], 07/23/2023 17:10:04 07/20/19 24 07/23/2023 VITAM IN B12/F OLATE , SERUM PANEL folate, serum >24.0 NG/mL normal Refer ence Range Low: <3.4 Borde rline : 3.4-5 .4 Amanda l: >5.4 Not Available [address], [address], 07/23/2023 17:10:04 07/20/19 24 07/23/2023 GENET SCREE [...] GENET IFA resul t sugge sts an GNEET-a ssoci ated autoi mmune disea se is [...] Li rns (http [email or web address] [email or web address] [email or web address]/ [facility]- 2017- 0052) For addit ional infor eliezer pascal e refer to http: //[facility].Que stDia gnost ics.c om/fa q/FAQ 177 (This link is being provi ded for infor angelique loomis/ educa raymundo l purpo ses only. ) Not Available [facility] [place] [address] [place], [address], 07/23/2023 17:10:04 07/20/19 24 07/23/2023 RHEUM ATOID FACTO R rheumatoid factor <14 IU/mL <14 normal Not Available [facility] [address] [address] [address] [place], [address], 07/23/2023 17:10:05 07/20/19 24 07/23/2023 C-ALLIE CTIVE PROTE IN C-reactive protein 1.0 mg/L <8.0 normal Not Available [place] [address] [place], [address], 07/23/2023 17:10:07 07/20/19 24 07/23/2023 INSUL IN insulin 13.4 uIU/m L normal Refer ence Range < or = 18.4 Risk: Optim al < or = 18.4 Moder ate NA High >18.4 Adult cardi ovasc ular event risk categ ory cut point s (opti mal, moder ate, high) are based on Insul in Refer ence Inter jordon studi es perfo rmed at [facility] Diagn ostic s in 2021. Not Available [facility] [place] [address] [place], [address], 07/23/2023 17:10:08 07/20/19 24 07/23/2023 VITAM IN B6, PLASM A vitamin B6, plasma 24.0 NG/mL 2.1-21 .7 high (Note ) VITAM IN SUPPL EMENT ATION WITHI N 24 HOURS PRIOR TO BLOOD DRAW MAY AFFEC T THE ACCUR ACY OF RESUL TS. THIS TEST WAS DEVEL OPED AND ITS VIRAL TICAL PERFO RMANC E EROS CTERI STICS HAVE BEEN DETER MINED BY [facility]. IT HAS NOT BEEN CLEAR ED OR APPRO BRIANNA BY THE FDA. THIS ASSAY HAS BEEN VALID ATED PURSU ANT TO THE CLIA REGUL ATION S AND IS USED FOR CLINI RAVI PURPO SES. MDF med fusio n [address] [facility] [address] [place] [address] [phone] Santiago hurley MD Not Available [facility] [address] [address] , [place], [address], 07/23/2023 17:10:09 06/29/20 22 06/25/2022 imagi ng/di agnos tic resul t No observ ation record ed. [id number] [facility] [address] [place], [address], 08/30/2022 20:22:35 08/04/19 23 08/04/2022 MAMMO , scree basil, digit al, bilat eral No observ ation record ed. [id number] Not Available 08/30/2022 20:22:35 02/24/20 23 02/22/2023 XR, foot, 3 or more view No observ ation record ed. [email or web address] [address], [place], [address], 07/03/2023 16:15:28 Result Notes None recorded. Problems Name Problem SNOMED Code Status Onset Date Resolution Date Notes Provider Name and Address Organization Details Recorded Time Pain in upper limb 383352681 Active 2021 Not Available [facility] 3 20:21:17 Edema of lower extremity 925295843 Active 2021 [facility] Available [facility] 3 20:21:17 Cervical radiculiti s 70773068 Active 2021 Not Available [facility] 3 20:21:17 Herpes labialis 4438964 Active 2021 Not Available [facility] 3 20:21:17 Long-term drug therapy Active 2021 Not Available [facility] 3 20:21:17 Mixed hyperlipid emia 247429761 Active 2019 Not Available [facility] 3 20:21:17 Heart murmur 94557114 Active 2021 Not Available [facility] 3 20:21:17 Weight gain 1380715 Active 2022 BOYD Reza [address], [place], [address] , [facility] 3 13:00:29 Mitral valve regurgitat ion 35905380 Active 2022 BOYD Reza [address], [place], [address] , [facility] 3 11:41:49 Tricuspid valve regurgitat ion 569412913 Active 2022 BOYD Reza [address], [place], [address] , [facility] 3 11:42:03 Multiple joint pain 22993228 Active 2022 BOYD Reza [address], [place], [address] , [facility] 3 12:04:34 Pain in both feet 3305911603970 9102 Active 2022 BOYD Reza [address], [place], [address] , [facility] 3 12:05:20 Notes:05/2020-COVID Pos Problem Notes None recorded. Procedures Surgical History Date Name Laterality Status Provider Name and Address Organization Details Recorded Time Incision of foot fascia completed Not Available [facility] 08/30/2022 20:20:26 Imaging Results Imaging Date Name Status LastModified by Organiz ation Details LastModified Time 06/25/2022 imaging/diagno stic result completed [id number] [facility] [address] [place], [address], 08/30/2022 20:22:35 08/04/2022 MAMMO, screening, digital, bilateral completed [id number] Information not available 08/30/2022 20:22:35 02/22/2023 XR, foot, 3 or more view completed [email or web address] [facility] [address] [facility], [place], [address], 07/03/2023 16:15:28 Procedure Notes None recorded. Medical [...] % 98 % 90 /min 98.2 [degF] 06377.6 4 g 122 mm[Hg] 80 mm[Hg] Not [...] % 98 % 16 /min 98.1 [degF] 64469.3 9 g 120 mm[Hg] 66 mm[Hg] Not Available [facility] 3 20:20:50 Date Recorded Body mass index (BMI) Body height Oxygen saturation Oxygen saturation in Arterial blood by Pulse oximetry Heart rate Respiratory rate Body temperature Body weight Systolic blood pressure Diastolic blood pressure Provider Name and Address Organization Details Last Updated DateTime 3 28.5 kg/m2 162.56 cm 98 % 98 % 78 /min 16 /min 97.7 [degF] 36848.3 3 g 120 mm[Hg] 80 mm[Hg] Not Available [facility] 3 20:20:50 Date Recorded Body height Body temperature Body mass index (BMI) Body weight Respiratory rate Oxygen saturation Oxygen saturation in Arterial blood by Pulse oximetry Heart rate Systolic blood pressure Diastolic blood pressure Provider Name and Address Organization Details Last Updated DateTime 3 162.56 cm 98.3 [degF] 28.2 kg/m2 45061.1 5 g 16 /min 98 % 98 % 93 /min 118 mm[Hg] 72 mm[Hg] NIDHI Reyna [place] - [facility] [employer] [facility] 3 11:38:20 Social History Question Answer Notes LastModified by Organizat ion Details LastModified Time Tobacco Smoking Status Never Smoker Not Available [facility] 08/30/2022 20:20:17 Do You Have An Advance Directive? No [id number].56213 [id number] Information not available 08/30/2022 What Is Your Level Of Alcohol Consumption? Occasional MIGRATION.34196 99552 Information not available 08/30/2022 Do You Wear A Helmet When Biking? Yes MIGRATION.21214 36685 Information not available 08/30/2022 What Is Your Level Of Caffeine Consumption? Heavy MIGRATION.67454 83599 Information not available 08/30/2022 How Much Tobacco Do You Chew? None MIGRATION.41637 81002 Information not available 08/30/2022 In The 14 Days Before Symptom Onset, Have You Had Close Contact With A Laboratory-confi rmed COVID-19 While That Case Was Ill? No MIGRATION.89261 10650 Information not available 08/30/2022 In The 14 Days Before Symptom Onset, Have You Had Close Contact With A Person Who Is Under Investigation For COVID-19 While That Person Was Ill? No MIGRATION.86692 24711 Information not available 08/30/2022 What Type Of Diet Are You Following? REGULAR MIGRATION.87700 08883 Information not available 08/30/2022 Which Illicit Or Recreational Drugs Have You Used? None MIGRATION.43190 47409 Information not available 08/30/2022 Do You Or Have You Ever Used E-cigarettes Or Vape? Never Used Electronic Cigarettes MIGRATION.37406 61646 Information not available 08/30/2022 What Is The Highest Grade Or Level Of School You Have Completed Or The Highest Degree You Have Received? 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 No MIGRATION.40057 37148 Information not available 08/30/2022 What Is The Fluoride Status Of Your Home? Unknown MIGRATION.64282 43852 Information not available 08/30/2022 Do You Use Insect Repellent Routinely? No MIGRATION.91735 18179 Information not available 08/30/2022 Where Do You Live? [facility] MIGRATION.95930 62323 Information not available 08/30/2022 Do You Have A Medical Power Of Industrial Maintenance Mechanic? No MIGRATION.40218 07836 Information not available 08/30/2022 What Was The Date Of Your Most Recent Tobacco Screening? 02/16/2022 MIGRATION.69457 45469 Information not available 08/30/2022 Do You Have Any Pets? Yes MIGRATION.76323 57731 Information not available 08/30/2022 What Is Your Relationship Status? MIGRATION.80012 03175 Information not available 08/30/2022 Do You Use Your Seat Belt Or Car Seat Routinely? Yes MIGRATION.12632 58890 Information not available 08/30/2022 Do You Have Smoke And Carbon Monoxide Detectors In Your Home? Yes MIGRATION.98933 24318 Information not available 08/30/2022 Are You Passively Exposed To Smoke? No MIGRATION.52987 19371 Information not available 08/30/2022 Do You Or Have You Ever Used Smokeless Tobacco? Never Used Smokeless Tobacco MIGRATION.24696 95451 Information not available 08/30/2022 Are There Any Smokers In Your House? No MIGRATION.46955 33414 Information not available 08/30/2022 How Much Tobacco Do You Smoke? No MIGRATION.77829 45681 Information not available 08/30/2022 Do You Feel Stressed (tense, Restless, Nervous, Or Anxious, Or Unable To Sleep At Night)? [id number] MIGRATION.04574 44635 Information not available 08/30/2022 Do You Use Any Illicit Or Recreational Drugs? No MIGRATION.39633 46905 Information not available 08/30/2022 Do You Use Sunscreen Routinely? Yes MIGRATION.48469 91040 Information not available 08/30/2022 Have You Recently Traveled Abroad? No MIGRATION.88791 76662 Information not available 08/30/2022 Do You Have Any Dietary Restrictions? No MIGRATION.20864 51170 Information not available 08/30/2022 Do You Or Have You Ever Used Any Other Forms Of Tobacco Or Nicotine? No MIGRATION.80490 27785 Information not available 08/30/2022 Sex: Unknown Functional Status Question Answer Note LastModified by Organizat ion Details LastModified Time What is your exercise level? Moderate [id number] Information not available 08/30/2022 Mental Status None recorded. Family History Relationship Description Onset Age of this Age Resolved Age Notes LastModified by Organization Details LastModified Time Mother Coronary arterioscler osis [id number] Not available 08/30/2022 20:20:27 Unspecified Relation Adult attention deficit hyperactivit y disorder Child MIGRATION.954 [id number] Not available 08/30/2022 20:20:27 Paternal Grandfather Myocardial infarction MIGRATION.990 [id number] Not available 08/30/2022 20:20:27 Medical History Condition [...] SNOMED-CT Code Diagnosis ICD10 Code Diagnosis Note [id number] [facility] [place] [address] [place] [address] 12/02/2020 00:00:00 12/25/2020 19:52:04 [id number] [facility] [place] [address] [place], [place] [address] 06/02/2021 00:00:00 06/29/2021 00:00:55 [id number] [facility] [place] [address] [place], [place] [address] 12/01/2021 00:00:00 12/01/2021 15:35:21 [id number] [facility] [place] [address] [place], [place] [address] 02/16/2022 00:00:00 02/26/2022 17:16:57 [id number] [facility] [place] [address] [place], [place] [address] 08/24/2022 00:00:00 08/26/2022 18:13:27 [id number] BOYD Reza [facility] [place] [address] [place], [place] [address] 02/22/2023 11:33:46 02/22/2023 12:10:02 Mixed hyperlipidemia 167352107 E78.2 pt stopped her statin. wants to see labs now after weight loss Long-term drug therapy 890810860 Z79.899 all labs are due Adult heal th examination 814223029 Z00.01 well exam completed Edema of l ower extremity 932175212 R60.0 stable on maxzide 37.5mg Mitral jordon ve regurgitation 41781059 I34.0 trace noted on echo hx. Tricuspid valve regurgitation 857539546 I07.1 trace noted on echo hx. Diabetes m ellitus screening 009842440 Z13.1 screening diabetes due Multiple joint pain 3567 8005 M25.50 check CRP, ESR, RA, Uric acid and GENET panel. Pain in both feet 878622 6266 7591288 M79.672 check xray foot Health Concerns Section Related Observation LastModified by Organization Detai ls LastModified Time None Recorded Concern Status LastModified by Organization Details LastModified Time None Recorded Advance Directives Directive N: Payers Encounter Date Sequence Insurance Name Policy Number Policy Urena Covered Member ID Urena Member ID Guarantor Name 02/22/2023 1 [facility]: (PPO) [id number] Riley Shane [id number] Kaye Shane Notes Date Note Type [...] in exercise capacity; no snoring Not Available [facility] 06/29/2021 00:00:55 02/17/20 22 text/htm l HyperlipidemiaReported bypatient.Duration:chronic Control:usually well controlled; improving Current Therapy:currently taking: (rosuvastatin 10mg) Compliance:compliant; compliant with diet; exercises Complications:no coronary artery disease; no peripheral artery disease; no cardiovascular disease Not Available [facility] 02/26/2022 17:16:57 08/24/19 23 text/htm l HyperlipidemiaReported bypatient.Duration:chronic Control:usually well controlled Current Therapy:she stopped taking her statin in May. Compliance:compliant; compliant with diet; exercises Complications:no coronary artery disease; no peripheral artery disease; no cardiovascular disease Not Available [facility] 08/26/2022 18:13:27 02/23/20 23 text/htm l HyperlipidemiaReported bypatient.Duration:chronic Control:usually well controlled Compliance:compliant Complications:no coronary artery disease; no peripheral artery disease; no cardiovascular disease Wellness BOYD Reza [address] [place] [address], [facility] [address], [place], [address], [facility] 02/28/2023 21:32:29 OBGyn Episode No OBEpisode recorded.
--- NOTE | 2024-09-19 06:06 | WPDHPUPDATE1 ---
History and Physical Update Update Date/Time: 09/19/24 06:06 History and Physical has been reviewed, including an updated exam of the patient. There are NO changes in the patient's condition. Risks, benefits, and alternatives have been discussed and questions answered. Patient agrees to proceed with procedure.
[2024-09-19 08:35] VITALS: BP 116/68; PULSE 72; RESP 16; TEMP 36.9; O2SAT 100
[2024-09-19] MEDS: LACTATED RINGERS 1,000 ML 30 ML IV CONT (08:50)
[2024-09-19] MEDS: ACETAMINOPHEN 500 MG TABLET 1000 MG PO (08:55)
--- NOTE | 2024-09-19 08:55 | WPDANESEPPF ---
Anes - Initial Pre Proc Eval Procedure: Operation Date: 09/19/24 10:30 Proposed Procedures p Hysteroscopy Dilation and Curettage, Uterine Polypectomy with Ariadne Endometrial Ablation - Dane Rodriguez MD Date/Time: 09/19/24 08:55 Surgeon: Dane Rodriguez MD Pre Op Diagnosis: Irg Bleeding, Uterine Polyp Patient Data Age: 48 Gender: F Height: 1.6 m Weight: 81.3 kg Last Vital Signs Temp 36.9 C 09/19/24 08:35 Pulse 72 09/19/24 08:35 Resp 16 09/19/24 08:35 BP 116/68 09/19/24 08:35 Pulse Ox 100 09/19/24 08:35 O2 Del Method Room Air 09/19/24 08:35 Allergies Allergy/AdvReac Type Severity Reaction Status Date / Time No Known Allergies Allergy Mild Verified 09/08/24 08:50 Home Medications ?Medication ?Instructions ?Recorded ?Confirmed ?Type semaglutide (weight loss) 1 mg/0.5 0.5 mg subcut WEEKLY 09/08/24 09/08/24 History mL subcutaneous pen injector triamterene 37.5 1 tablet PO .QOD PRN DEPENDENT 09/08/24 09/19/24 History mg-hydrochlorothiazide 25 mg tablet EDEMA hydrocodone 5 mg-acetaminophen 300 1 tablet PO Q4H PRN pain #14 tabs 09/19/24 Rx mg tablet Patient hx anesthesia problems: none Family hx anesthesia problems: none Results Review: All pre-operative results and documents have been reviewed as part of the pre-operative evaluation. [facility] Family History Family History Mother Family history of obesity Family history of heart disease in male family member before age 55 Sibling Family history of obesity Grandparent Family history of obesity Family history of multiple sclerosis Family history of renal failure Family history of heart disease in male family member before age 55 Diabetes mellitus Social History Social History Smoking status: Never smoker Alcohol intake: never Substance use: never Living arrangements: with family Anes - Eval Final PreProcedure Day of Procedure 09/19/24 08:55 Patient weight: overweight Heart: regular rate and rhythm Lungs: clear to auscultation Airway: Mallampati scale class II Neurological: alert and oriented Last oral intake: >/= 8 hours ASA classification: II Emergent: no Anesthetic plan: proceed Anesthesia type and monitoring: general GIVS and standard monitoring Results Review: All pre-operative results and documents have been reviewed as part of the pre-operative evaluation. Informed Consent: The patient's anesthetic plan and its attendant risks and benefits were discussed with the patient/family/POA. Questions were solicited and answers provided to the satisfaction of the patient/family/POA.
[2024-09-19 09:11] LABS: BEDSIDEPREGUCG Negative (Negative)
[2024-09-19] MEDS: LIDOCAINE 1% LOCAL INJ 10 ML VIAL INFILTRATE (11:20)
--- NOTE | 2024-09-19 11:37 | W.PM.PROC2 ---
Procedure Note - Detailed Date of Procedure 09/19/24 Pre-op Diagnosis Irg Bleeding, Uterine Polyp Post-op Diagnosis Same Procedure Performed Hysteroscopy/polypectomy/dilatation curettage/Ariadne ablation Surgeon Dane Rodriguez MD Anesthesia MAC and Local Indications 48-year-old female suspected polyp in excessive heavy bleeding Findings Uterine polyp was noted. Thick endometrial tissue. Description of Procedure The patient was prepped draped in normal sterile fashion placed in dorsal lithotomy position. Under excellent sedation placed in posterior fornix grasped with single-tooth 2.5cc 1% xylocaine anesthesia placed at 2:48 a.m. 10:00 a.m. the cervix. Uterus sounded to 9cm. Serial fragmented followed by passage of the 5mm visualizing hysteroscope using normal saline as visualizing medium. Uterine polyp was noted this was removed with small. The uterus scraped over the entire 360? until a good grating sound was heard. The hysteroscope was then removed the Ariadne instrument placed in the uterus and uterine lining burned 120seconds this was removed. The hysteroscope was reinserted and excellent burn was seen in photo documentation undertaken. The instruments withdrawn the patient went recovery in satisfactory condition. All sponge, needle, instrument counts were correct. There were no immediate complications Estimated Blood Loss 5 Drains No Packing No Pathology Yes Complications No immediate complications Condition Stable Disposition PACU
[2024-09-19 11:40] VITALS: BP 121/58; PULSE 78; RESP 15; O2SAT 99
[2024-09-19 12:10] VITALS: BP 127/73; PULSE 67; RESP 16
[2024-09-19] MEDS: oxyCODONE HCL (*CRX) 5 MG TAB IR PO (12:15)
[2024-09-19 12:40] VITALS: BP 121/72; PULSE 59; RESP 16
== END 2024-09-19 12:50 | disposition home or self-care (01) ==
PROVIDERS: PCP Physician Assistant; Visit Provider Obstetrics & Gynecology
PROC: 0U5B8ZZ Destruction of Endometrium, Via Natural or Artificial Opening Endoscopic (ICD-10-PCS; CPT 58563; principal; 2024-09-19 10:30)
DX: N93.9 Abnormal uterine and vaginal bleeding, unspecified (principal); N84.0 Polyp of corpus uteri
CPT/HCPCS: 58563; 88305; A9270; J1885; J2003; J2250; J2704; J3010; J7120

== ENCOUNTER 2024-11-06 10:54 | Outpatient (CLI) | payer BC, SELFPAY ==
--- NOTE | ~2024-11-06 | MM_ITS ---
EXAMINATION: MM screening mushtaq BI w daphne HISTORY: Screening TECHNIQUE: Craniocaudal and mediolateral oblique 3-D tomosynthesis images were obtained and synthetic 2-D images were generated. CAD analysis was submitted and interpreted. COMPARISON: Comparison to multiple prior studies sequentially, with oldest reviewed study dated 08/27. BREAST PARENCHYMAL COMPOSITION: Dense: The breasts are heterogeneously dense, which may obscure small masses FINDINGS: The left breast is stable without evidence for malignancy. There is a focal asymmetry in th e lateral aspect of the right breast, middle third, without corresponding abnormality on MLO view. IMPRESSION: 1. Right breast asymmetry laterally on CC view, middle third. 2. Additional mammographic views and possible breast ultrasound are recommended. BI-RADS Category 0: Incomplete: Needs additional imaging evaluation. Reviewed, dictated and finalized at location A. IMPRESSION: 1. Right breast asymmetry laterally on CC view, middle third. 2. Additional mammographic views and possible breast ultrasound are recommended . BI-RADS Category 0: Incomplete: Needs additional imaging evaluation.
== END 2024-11-06 10:55 | disposition home or self-care (01) ==
LOC: MICIMG 10:55
PROVIDERS: PCP Physician Assistant; Visit Provider Physician Assistant
DX: Z12.31 Encounter for screening mammogram for malignant neoplasm of breast (principal); R92.8 Other abnormal and inconclusive findings on diagnostic imaging of breast
CPT/HCPCS: 77063; 77067

== ENCOUNTER 2024-12-04 07:54 | Outpatient (CLI) | payer BC, SELFPAY ==
--- NOTE | ~2024-12-04 | MMUS_ITS ---
Examination: MM diagnostic CINDY RT W daphne and US breast RT limited INDICATION: 48-year old female; BI-RADS 0, right breast asymmetry. COMPARISON: 11/06/2024 TECHNIQUE: Digital breast tomosynthesis True lateral, spot compression CC view of RIGHT breasts were obtained with computer-aided detection to assist in interpretation of the study. FINDINGS: The breasts are heterogeneously dense, which may obscure small masses. The asymmetry of concern in the outer posterior right breast partially persists on spot compression v iews. RIGHT BREAST ULTRASOUND FINDINGS: Targeted evaluation of the lateral right breast performed did not show any suspicious solid or cystic mass. IMPRESSION: PROBABLY BENIGN RIGHT BREAST ASYMMETRY WITH NO SONOGRAPHIC CORRELATE. RECOMMENDATION: 6 MONTH FOLLOW-UP RIGHT BREAST DIAGNOSTIC MAMMOGRAPHY. BI-RADS 3, PROBABLY BENIGN Reviewed, dictated and finalized at location B. IMPRESSION: PROBABLY BENIGN RIGHT BREAST ASYMMETRY WITH NO SONOGRAPHIC CORRELATE. RECOMMENDATION: 6 MONTH FOLLOW-UP RIGHT BREAST DIAGNOSTIC MAMMOGRAPHY. BI-RADS 3, PROBABLY BENIGN
== END 2024-12-04 07:55 | disposition home or self-care (01) ==
LOC: MICIMG 07:54
PROVIDERS: PCP Physician Assistant; Visit Provider Physician Assistant
DX: R92.8 Other abnormal and inconclusive findings on diagnostic imaging of breast (principal)
CPT/HCPCS: 76642; 77061; 77065; G0279

== ENCOUNTER 2024-12-12 21:22 | Emergency (ER) | payer BC, SELFPAY ==
--- NOTE | ~2024-12-12 | XR_ITS ---
XR chest 1V portable Ordering provider: Ivon Quintero MD History: 49 years Female with . epigastric pain . Comparison: None. FINDINGS: MEDIASTINUM: The cardiac silhouette is not enlarged. LUNGS: No infiltrates, effusions or pneumothorax. OTHER: No free air under the diaphragm. IMPRESSION: No acute cardiopulmonary pathology. Reviewed, dictated and finalized at location A.
--- NOTE | ~2024-12-12 | CT_ITS ---
EXAMINATION: CT abdomen pelvis w con DATE: 12/12/2024 23:57 INDICATION: Periumbilical and epigastric pain TECHNIQUE: Computed tomography (CT) of the abdomen and pelvis was performed with 100 cc Omnipaque 350 intravenous contrast. The dose-length product was 641.27 mGy-cm. Automated exposure control and iter ative reconstruction technique were employed. COMPARISON: None. FINDINGS: There is lingular atelectasis. Heart size normal. No significant pleural or pericardial eff usion. There is edema in the left lower abdominal mesentery. Nonobstructive bowel gas pattern. Small 1.5 cm right ovarian cyst. The liver, spleen, pancreas, adrenal glands and kidneys are unremarkable. Gallbladder is present. Non obstructive bowel gas pattern. No acute osseous abnormality. No free air or free fluid. No significan t vascular abnormality. No lymphadenopathy. IMPRESSION: 1. Mesenteric edema left lower abdominal mesentery which may be due to panniculitis/mesenteritis or l ess likely secondary to adjacent enteritis. Reviewed, dictated and finalized at location B. IMPRESSION: 1. Mesenteric edema left lower abdominal mesentery which may be due to pannicul itis/mesenteritis or less likely secondary to adjacent enteritis.
--- OUTSIDE RECORDS SUMMARY | 2024-12-12 21:24 | XMS_ITS | Data Portability ---
Author Organization [place] - [facility], Main Office Address [address] [place] [address] Assessment Encounter Date Assessment Date Assessment LastModified by Organization Details LastModified Time 02/22/2023 02/22/2023 cologuard negative mar 2022 [email or web address] Not available 02/22/2023 11:41:16 Plan of Treatment Reminders Order Date Submit Date Provider Last Modified By Organization Details Last Modified Time Details Appointments None recorded. Lab lipid panel, serum 2022 023 Jascha [facility], [address], [place], [address], 4 17:09:55 C-reactive protein, quantitativ e, serum or plasma 2022 023 Jascha [facility], [address], [place], [address], 4 17:10:07 rf (rheumatoid factor), serum 2022 023 Jascha [facility], [address], [place], [address], 4 17:10:06 erythrocyte sedimentati on rate by westergren method 2022 023 Jascha [facility], [address], [place], [address], 4 17:10:00 uric acid, serum or plasma 2022 023 Jascha [facility], [address], [place], [address], 4 17:09:59 GENET (antinuclea r antibodies) screen, ifa, serum 2022 023 [facility], [address], [place], [address], 4 17:10:04 CBC w/ auto diff 2022 023 [facility], [address], [place], [address], 4 17:10:02 CMP, serum or plasma 2022 023 Jascha [facility], [address], [place], [address], 4 17:09:56 TSH + free T4, serum 2022 023 Jascha [facility], [address], [place], [address], 4 17:09:54 HbA1c (hemoglobin A1c), blood 2022 023 Jascha [facility], [address], [place], [address], 4 17:09:58 Referral None recorded. Procedures None [...] URINE , ROUTI NE Micro Numbe r: [id number] Test Statu s: Final Speci men [...] Cultu re Trans port Tube. Not Available [facility] [address] [address] [place], [address], 02/24/2022 02:14:41 02/23/2002/24/2022 INSUL IN insulin 14.9 [...] (dete mauro, gluli sine) . Not Available [facility] [address] [address] [place], [address], 02/24/2022 02:14:40 02/23/20 22 02/24/2022 REFLE XIVE URINE CULTU RE reflexive urine culture CULTU RE INDIC ATED - RESUL TS TO FOLLO W Not Available [facility] [address] [address] [place], [address], 02/24/2022 02:14:40 02/23/20 22 02/24/2022 URINA LYSIS , COMPL ETE W/REF CELESTINE TO CULTU RE hyaline cast none seen /lpf none seen normal Not Available [facility] [address] [address] [place], [address], 02/24/2022 02:14:40 02/23/20 22 02/24/2022 URINA LYSIS , COMPL ETE W/REF CELESTINE TO CULTU RE color yellow yellow normal Not Available [address], [address], 02/24/2022 02:14:40 02/23/20 22 02/24/2022 URINA LYSIS , COMPL ETE W/REF CELESTINE TO CULTU RE appearance clear clear normal Not Available [address], [address], 02/24/2022 02:14:40 02/23/20 22 02/24/2022 URINA LYSIS , COMPL ETE W/REF CELESTINE TO CULTU RE specific gravity 1.023 1.001- 1.035 normal Not Available [address], [address], 02/24/2022 02:14:40 02/23/20 22 02/24/2022 URINA LYSIS , COMPL ETE W/REF CELESTINE TO CULTU RE pH 7.0 5.0-8. 0 normal Not Available [address], [address], 02/24/2022 02:14:40 02/23/20 22 02/24/2022 URINA LYSIS , COMPL ETE W/REF CELESTINE TO CULTU RE glucose negati ve negati ve normal Not Available [address], [address], 02/24/2022 02:14:40 02/23/20 22 02/24/2022 URINA LYSIS , COMPL ETE W/REF CELESTINE TO CULTU RE bilirubin negati ve negati ve normal Not Available [address], [address], 02/24/2022 02:14:40 02/23/20 22 02/24/2022 URINA LYSIS , COMPL ETE W/REF CELESTINE TO CULTU RE ketones negati ve negati ve normal Not Available [address], [address], 02/24/2022 02:14:40 02/23/20 22 02/24/2022 URINA LYSIS , COMPL ETE W/REF CELESTINE TO CULTU RE occult blood negati ve negati ve normal Not Available [address], [address], 02/24/2022 02:14:40 02/23/20 22 02/24/2022 URINA LYSIS , COMPL ETE W/REF CELESTINE TO CULTU RE protein negati ve negati ve normal Not Available [address], [address], 02/24/2022 02:14:40 02/23/20 22 02/24/2022 URINA LYSIS , COMPL ETE W/REF CELESTINE TO CULTU RE nitrite negati ve negati ve normal Not Available [address], [address], 02/24/2022 02:14:40 02/23/20 22 02/24/2022 URINA LYSIS , COMPL ETE W/REF CELESTINE TO CULTU RE leukocyte esterase 1+ negati ve abnormal Not Available [address], [address], 02/24/2022 02:14:40 02/23/20 22 02/24/2022 URINA LYSIS , COMPL ETE W/REF CELESTINE TO CULTU RE WBC 0-5 /hpf < or = 5 normal Not Available [address], [address], 02/24/2022 02:14:40 02/23/20 22 02/24/2022 URINA LYSIS , COMPL ETE W/REF CELESTINE TO CULTU RE RBC none seen /hpf < or = 2 normal Not Available [address] [place], [address], 02/24/2022 02:14:40 02/23/20 22 02/24/2022 URINA LYSIS , COMPL ETE W/REF CELESTINE TO CULTU RE squamous epithelial cells 0-5 /hpf < or = 5 Not Available [address], [address], 02/24/2022 02:14:40 02/23/20 22 02/24/2022 URINA LYSIS , COMPL ETE W/REF CELESTINE TO CULTU RE bacteria none seen /hpf none seen normal Not Available [address], [address], 02/24/2022 02:14:40 02/23/20 22 02/24/2022 CBC (INCL UDES DIFF/ PLT) white blood cell count 7.5 thous and/u L 3.8-10 .8 normal Not Available [address], [address], 02/24/2022 02:14:39 02/23/20 22 02/24/2022 CBC (INCL UDES DIFF/ PLT) red blood cell count 4.23 jordyn on/uL 3.80-5 .10 normal Not Available [address], [address], 02/24/2022 02:14:39 02/23/20 22 02/24/2022 CBC (INCL UDES DIFF/ PLT) hemoglobin 11.8 g/dL 11.7-1 5.5 normal Not Available [address], [address], 02/24/2022 02:14:39 02/23/20 22 02/24/2022 CBC (INCL UDES DIFF/ PLT) hematocrit 37.2 % 35.0-4 5.0 normal Not Available [address], [address], 02/24/2022 02:14:39 02/23/20 22 02/24/2022 CBC (INCL UDES DIFF/ PLT) MCV 87.9 fL 80.0-1 00.0 normal Not Available [address], [address], 02/24/2022 02:14:39 02/23/20 22 02/24/2022 CBC (INCL UDES DIFF/ PLT) MCH 27.9 pg 27.0-3 3.0 normal Not Available [address], [address], 02/24/2022 02:14:39 02/23/20 22 02/24/2022 CBC (INCL UDES DIFF/ PLT) MCHC 31.7 g/dL 32.0-3 6.0 low Not Available [address], [address], 02/24/2022 02:14:39 02/23/20 22 02/24/2022 CBC (INCL UDES DIFF/ PLT) RDW 13.1 % 11.0-1 5.0 normal Not Available [address], [address], 02/24/2022 02:14:39 02/23/20 22 02/24/2022 CBC (INCL UDES DIFF/ PLT) platelet count 228 thous and/u L 140-40 0 normal Not Available [address], [address], 02/24/2022 02:14:39 02/23/20 22 02/24/2022 CBC (INCL UDES DIFF/ PLT) MPV 11.1 fL 7.5-12 .5 normal Not Available [address], [address], 02/24/2022 02:14:39 02/23/20 22 02/24/2022 CBC (INCL UDES DIFF/ PLT) absolute neutrophils 4485 cells /uL 1500-7 800 normal Not Available [address], [address], 02/24/2022 02:14:39 02/23/20 22 02/24/2022 CBC (INCL UDES DIFF/ PLT) absolute lymphocytes 2228 cells /uL 850-39 00 normal Not Available [address], [address], 02/24/2022 02:14:39 02/23/20 22 02/24/2022 CBC (INCL UDES DIFF/ PLT) absolute monocytes 450 cells /uL 200-95 0 normal Not Available [address], [address], 02/24/2022 02:14:39 02/23/20 22 02/24/2022 CBC (INCL UDES DIFF/ PLT) absolute eosinophils 278 cells /uL 15-500 normal Not Available [address], [address], 02/24/2022 02:14:39 02/23/20 22 02/24/2022 CBC (INCL UDES DIFF/ PLT) absolute basophils 60 cells /uL 0-200 normal Not Available [address], [address], 02/24/2022 02:14:39 02/23/20 22 02/24/2022 CBC (INCL UDES DIFF/ PLT) neutrophils 59.8 % normal Not Available [address], [address], 02/24/2022 02:14:39 02/23/20 22 02/24/2022 CBC (INCL UDES DIFF/ PLT) lymphocytes 29.7 % normal Not Available [address], [address], 02/24/2022 02:14:39 02/23/20 22 02/24/2022 CBC (INCL UDES DIFF/ PLT) monocytes 6.0 % normal Not Available [facility] [address] [address] [place], [address], 02/24/2022 02:14:39 02/23/20 22 02/24/2022 CBC (INCL UDES DIFF/ PLT) eosinophils 3.7 % normal Not Available [facility] [address] [address] [place], [address], 02/24/2022 02:14:39 02/23/20 22 02/24/2022 CBC (INCL UDES DIFF/ PLT) basophils 0.8 % normal Not Available [facility] [address] [address] [place], [address], 02/24/2022 02:14:39 02/23/20 22 02/24/2022 HEMOG LOBIN [...] Diabe sanjana(A DA). Not Available [facility] [address] [address] [place], [address], 02/24/2022 02:14:39 02/23/20 22 02/24/2022 COMPR EHENS YANELY METAB OLIC PANEL glucose 96 mg/dL 65-99 normal Fasti ng refer ence inter jordon Not Available [address], [address], 02/24/2022 02:14:38 02/23/20 22 02/24/2022 COMPR EHENS YANELY METAB OLIC PANEL urea nitrogen (BUN) 14 mg/dL 7-25 normal Not Available [address], [address], 02/24/2022 02:14:38 02/23/20 22 02/24/2022 COMPR EHENS YANELY METAB OLIC PANEL creatinine 0.75 mg/dL 0.50-0 .99 normal Not Available [address], [address], 02/24/2022 02:14:38 02/23/20 22 02/24/2022 COMPR EHENS [...] kdoqi /gfr% 5Fcal culat or Not Available [address], [address], 02/24/2022 02:14:38 02/23/20 22 02/24/2022 COMPR EHENS YANELY METAB OLIC PANEL BUN/creatini ne ratio not applic able (calc ) 6-22 Not Available [address], [address], 02/24/2022 02:14:38 02/23/20 22 02/24/2022 COMPR EHENS YANELY METAB OLIC PANEL sodium 138 mmol/ L 135-14 6 normal Not Available [address], [address], 02/24/2022 02:14:38 02/23/20 22 02/24/2022 COMPR EHENS YANELY METAB OLIC PANEL potassium 3.9 mmol/ L 3.5-5. 3 normal Not Available [address], [address], 02/24/2022 02:14:38 02/23/20 22 02/24/2022 COMPR EHENS YANELY METAB OLIC PANEL chloride 104 mmol/ L 98-110 normal Not Available [address], [address], 02/24/2022 02:14:38 02/23/20 22 02/24/2022 COMPR EHENS YANELY METAB OLIC PANEL carbon dioxide 31 mmol/ L 20-32 normal Not Available [address], [address], 02/24/2022 02:14:38 02/23/20 22 02/24/2022 COMPR EHENS YANELY METAB OLIC PANEL calcium 8.9 mg/dL 8.6-10 .2 normal Not Available [address], [address], 02/24/2022 02:14:38 02/23/20 22 02/24/2022 COMPR EHENS YANELY METAB OLIC PANEL protein, total 6.1 g/dL 6.1-8. 1 normal Not Available [address], [address], 02/24/2022 02:14:38 02/23/20 22 02/24/2022 COMPR EHENS YANELY METAB OLIC PANEL albumin 3.7 g/dL 3.6-5. 1 normal Not Available [address], [address], 02/24/2022 02:14:38 02/23/20 22 02/24/2022 COMPR EHENS YANELY METAB OLIC PANEL globulin 2.4 g/dL_ (calc ) 1.9-3. 7 normal Not Available [address], [address], 02/24/2022 02:14:38 02/23/20 22 02/24/2022 COMPR EHENS YANELY METAB OLIC PANEL albumin/glob ulin ratio 1.5 (calc ) 1.0-2. 5 normal Not Available [address], [address], 02/24/2022 02:14:38 02/23/20 22 02/24/2022 COMPR EHENS YANELY METAB OLIC PANEL bilirubin, total 0.4 mg/dL 0.2-1. 2 normal Not Available [address], [address], 02/24/2022 02:14:38 02/23/20 22 02/24/2022 COMPR EHENS YANELY METAB OLIC PANEL alkaline phosphatase 79 U/L 31-125 normal Not Available [address], [address], 02/24/2022 02:14:38 02/23/20 22 02/24/2022 COMPR EHENS YANELY METAB OLIC PANEL AST 13 U/L 10-35 normal Not Available [address], [address], 02/24/2022 02:14:38 02/23/20 22 02/24/2022 COMPR EHENS YANELY METAB OLIC PANEL ALT 13 U/L 6-29 normal Not Available [address], [address], 02/24/2022 02:14:38 02/23/20 22 02/24/2022 LIPID PANEL WITH RATIO S cholesterol, total 155 mg/dL <200 normal Not Available [address], [address], 02/24/2022 02:14:38 02/23/20 22 02/24/2022 LIPID PANEL WITH RATIO S HDL cholesterol 45 mg/dL > or = 50 low Not Available [address], [address], 02/24/2022 02:14:38 02/23/20 22 02/24/2022 LIPID PANEL WITH RATIO S triglyceride s 212 mg/dL <150 high If a non-f astin g speci men was colle cted, consi beth repea t trigl yceri de testi ng on a fasti ng speci men if clini flora indic ated. Carlos gatica et al. J. of Clin. Lipid ol. 2015; 9:129 -169. Not Available [address], [address], 02/24/2022 02:14:38 02/23/20 22 02/24/2022 LIPID PANEL [...] 2061- 2068 (http ://ed ucati on.Qu rebekahDi Fanminder. com/f aq/FA Q164) Not Available [address] [address] [address] , [place], [address], 02/24/2022 02:14:38 02/23/20 22 02/24/2022 LIPID PANEL WITH RATIO S chol/HDLC ratio 3.4 (calc ) <5.0 normal Not Available [address] [place], [address], 02/24/2022 02:14:38 02/23/20 22 02/24/2022 LIPID PANEL WITH RATIO S LDL/HDL ratio 1.8 (calc ) Below avera ge Risk: <2.34 Hemet ge Risk: 2.35- 4.12 Moder ate Risk: 4.13- 5.56 High Risk: >5.57 Not Available [address] [address] [place], [address], 02/24/2022 02:14:38 02/23/20 22 02/24/2022 LIPID PANEL WITH RATIO S non HDL cholesterol 110 mg/dL _(ravi c) <130 normal For patie nts with diabe sanjana plus 1 major ASCVD risk facto r, treat ing to a non-H DL-C goal of <100 mg/dL (LDL- C of <70 mg/dL ) is consi benjamin a zafar peuti c optio n. Not Available [address] [address] [address] , [place], [address], 02/24/2022 02:14:38 02/23/2002/24/2022 TSH+F REE T4 TSH 3.37 mIU/L normal Refer ence Range > or = 20 Years 0.40- 4.50 Pregn saira Range s First trime ster 0.26- 2.66 Secon d trime ster 0.55- 2.73 Third trime ster 0.43- 2.91 Not Available [address] [address] [place], [address], 02/24/2022 02:14:37 02/23/2002/24/2022 TSH+F REE T4 T4, free 1.1 NG/dL 0.8-1. 8 normal Not Available [address] [address] [place], [address], 02/24/2022 02:14:37 03/15/20 22 03/15/2022 COLOG UARD [...] of 10,00 0 indiv idual s at [facility] risk for color ectal cance r who [...] asymp tomat ic indiv idual s at [facility] risk for color ectal cance r. [...] 112:1 016-1 030. TEST DESCR IPTIO N: Ivalee site algor ithmi c viral sis of [...] years or older , who are at [facility] for color ectal cance r (CRC) . Colog uard has been appro brianna for use by the [place] FDA. The perfo rmanc e of Colog uard was estab lishe d in a cross secti onal study of [facility] adult s aged 50-84 . Colog uard [...] of 10,00 0 indiv idual s at [facility] risk for color ectal cance r who [...] at www.c ologu day.c om. Not Available [facility] (Cologuard Orders Only) [address], [place], [address], 03/18/2022 02:20:33 07/20/1907/23/2023 TSH+F REE T4 TSH 2.35 mIU/L normal Refer ence Range > or = 20 Years 0.40- 4.50 Pregn saira Range s First trime ster 0.26- 2.66 Secon d trime ster 0.55- 2.73 Third trime ster 0.43- 2.91 Not Available [facility] [address] [place], [address], 07/23/2023 17:09:54 07/20/19 24 07/23/2023 TSH+F REE T4 T4, free 1.0 NG/dL 0.8-1. 8 normal Not Available [facility] [address] [place], [address], 07/23/2023 17:09:54 07/20/19 24 07/23/2023 LIPID PANEL WITH RATIO S cholesterol, total 203 mg/dL <200 high Not Available [facility] [address] [address] [place], [address], 07/23/2023 17:09:55 07/20/19 24 07/23/2023 LIPID PANEL WITH RATIO S HDL cholesterol 48 mg/dL > or = 50 low Not Available [facility] [address] [place], [address], 07/23/2023 17:09:55 07/20/19 24 07/23/2023 LIPID PANEL WITH RATIO S triglyceride s 188 mg/dL <150 high Not Available [facility] [address] [address] [place], [address], 07/23/2023 17:09:55 07/20/19 24 07/23/2023 LIPID PANEL [...] com/f aq/FA Q164) Not Available [facility] [address] [address], [place], [address], 07/23/2023 17:09:55 07/20/19 24 07/23/2023 LIPID PANEL WITH RATIO S chol/HDLC ratio 4.2 (calc ) <5.0 normal Not Available [facility] [address] [place], [address], 07/23/2023 17:09:55 07/20/19 24 07/23/2023 LIPID PANEL WITH RATIO S LDL/HDL ratio 2.6 (calc ) Below avera ge Risk: <2.34 [place] ge Risk: 2.35- 4.12 Moder ate Risk: 4.13- 5.56 High Risk: >5.57 Not Available [address], [address], 07/23/2023 17:09:55 07/20/19 24 07/23/2023 LIPID PANEL WITH RATIO S non HDL cholesterol 155 mg/dL _(ravi c) <130 high For patie nts with diabe sanjana plus 1 major ASCVD risk facto r, treat ing to a non-H DL-C goal of <100 mg/dL (LDL- C of <70 mg/dL ) is yaya stephen pegogo c optio n. Not Available [address], [address], 07/23/2023 17:09:55 07/20/19 24 07/23/2023 COMPR EHENS YANELY METAB OLIC PANEL glucose 89 mg/dL 65-99 normal Fasti ng refer ence inter jordon Not Available [address], [address], 07/23/2023 17:09:56 07/20/19 24 07/23/2023 COMPR EHENS YANELY METAB OLIC PANEL urea nitrogen (BUN) 17 mg/dL 7-25 normal Not Available [address], [address], 07/23/2023 17:09:56 07/20/19 24 07/23/2023 COMPR EHENS YANELY METAB OLIC PANEL creatinine 0.74 mg/dL 0.50-0 .99 normal Not Available [address], [address], 07/23/2023 17:09:56 07/20/19 24 07/23/2023 COMPR EHENS YANELY METAB OLIC PANEL eGFR 101 mL/mi n/1.7 3m2 > or = 60 normal Not Available [address] [address] [place], [address], 07/23/2023 17:09:56 07/20/19 24 07/23/2023 COMPR EHENS YANELY METAB OLIC PANEL BUN/creatini ne ratio SEE NOTE: (calc ) 6-22 Not Repor junie: BUN and Creat inine are withi n refer ence range . Not Available [address] [address] [place], [address], 07/23/2023 17:09:56 07/20/19 24 07/23/2023 COMPR EHENS YANELY METAB OLIC PANEL sodium 137 mmol/ L 135-14 6 normal Not Available [address] [address] [place], [address], 07/23/2023 17:09:56 07/20/19 24 07/23/2023 COMPR EHENS YANELY METAB OLIC PANEL potassium 3.9 mmol/ L 3.5-5. 3 normal Not Available [address] [address] [place], [address], 07/23/2023 17:09:56 07/20/19 24 07/23/2023 COMPR EHENS YANELY METAB OLIC PANEL chloride 104 mmol/ L 98-110 normal Not Available [address] [address] [place], [address], 07/23/2023 17:09:56 07/20/19 24 07/23/2023 COMPR EHENS YANELY METAB OLIC PANEL carbon dioxide 28 mmol/ L 20-32 normal Not Available [address] [address] [place], [address], 07/23/2023 17:09:56 07/20/19 24 07/23/2023 COMPR EHENS YANELY METAB OLIC PANEL calcium 8.9 mg/dL 8.6-10 .2 normal Not Available [address], [address], 07/23/2023 17:09:56 07/20/19 24 07/23/2023 COMPR EHENS YANELY METAB OLIC PANEL protein, total 6.6 g/dL 6.1-8. 1 normal Not Available [address], [address], 07/23/2023 17:09:56 07/20/19 24 07/23/2023 COMPR EHENS YANELY METAB OLIC PANEL albumin 4.0 g/dL 3.6-5. 1 normal Not Available [address], [address], 07/23/2023 17:09:56 07/20/19 24 07/23/2023 COMPR EHENS YANELY METAB OLIC PANEL globulin 2.6 g/dL_ (calc ) 1.9-3. 7 normal Not Available [address], [address], 07/23/2023 17:09:56 07/20/19 24 07/23/2023 COMPR EHENS YANELY METAB OLIC PANEL albumin/glob ulin ratio 1.5 (calc ) 1.0-2. 5 normal Not Available [address], [address], 07/23/2023 17:09:56 07/20/19 24 07/23/2023 COMPR EHENS YANELY METAB OLIC PANEL bilirubin, total 0.4 mg/dL 0.2-1. 2 normal Not Available [address] [place], [address], 07/23/2023 17:09:56 07/20/19 24 07/23/2023 COMPR EHENS YANELY METAB OLIC PANEL alkaline phosphatase 73 U/L 31-125 normal Not Available [address] [address] [place], [address], 07/23/2023 17:09:56 07/20/19 24 07/23/2023 COMPR EHENS YANELY METAB OLIC PANEL AST 13 U/L 10-35 normal Not Available [facility] [address] [place], [address], 07/23/2023 17:09:56 07/20/19 24 07/23/2023 COMPR EHENS YANELY METAB OLIC PANEL ALT 16 U/L 6-29 normal Not Available [facility] [address] [place], [address], 07/23/2023 17:09:56 07/20/19 24 07/23/2023 HEMOG LOBIN [...] on Abbot t platf orm. Not Available [facility] [address] [place], [address], 07/23/2023 17:09:58 07/20/19 24 07/23/2023 URIC ACID uric acid 4.0 mg/dL 2.5-7. 0 normal Thera peuti c targe t for gout patie nts: <6.0 mg/dL Not Available [address], [address], 07/23/2023 17:09:59 07/20/19 24 07/23/2023 SED RATE BY MODIF IED WESTE RGREN sed rate by modified westergren 11 mm/h < or = 20 normal Not Available [address], [address], 07/23/2023 17:10:00 07/20/19 24 07/23/2023 CBC (INCL UDES DIFF/ PLT) white blood cell count 5.8 thous and/u L 3.8-10 .8 normal Not Available [address], [address], 07/23/2023 17:10:02 07/20/19 24 07/23/2023 CBC (INCL UDES DIFF/ PLT) red blood cell count 4.29 jordyn on/uL 3.80-5 .10 normal Not Available [address], [address], 07/23/2023 17:10:02 07/20/19 24 07/23/2023 CBC (INCL UDES DIFF/ PLT) hemoglobin 12.5 g/dL 11.7-1 5.5 normal Not Available [address], [address], 07/23/2023 17:10:02 07/20/19 24 07/23/2023 CBC (INCL UDES DIFF/ PLT) hematocrit 38.6 % 35.0-4 5.0 normal Not Available [address], [address], 07/23/2023 17:10:02 07/20/19 24 07/23/2023 CBC (INCL UDES DIFF/ PLT) MCV 90.0 fL 80.0-1 00.0 normal Not Available [address] [place], [address], 07/23/2023 17:10:02 07/20/19 24 07/23/2023 CBC (INCL UDES DIFF/ PLT) MCH 29.1 pg 27.0-3 3.0 normal Not Available [address], [address], 07/23/2023 17:10:02 07/20/19 24 07/23/2023 CBC (INCL UDES DIFF/ PLT) MCHC 32.4 g/dL 32.0-3 6.0 normal Not Available [address], [address], 07/23/2023 17:10:02 07/20/19 24 07/23/2023 CBC (INCL UDES DIFF/ PLT) RDW 12.5 % 11.0-1 5.0 normal Not Available [address], [address], 07/23/2023 17:10:02 07/20/19 24 07/23/2023 CBC (INCL UDES DIFF/ PLT) platelet count 240 thous and/u L 140-40 0 normal Not Available [address], [address], 07/23/2023 17:10:02 07/20/19 24 07/23/2023 CBC (INCL UDES DIFF/ PLT) MPV 11.3 fL 7.5-12 .5 normal Not Available [address], [address], 07/23/2023 17:10:02 07/20/19 24 07/23/2023 CBC (INCL UDES DIFF/ PLT) absolute neutrophils 2941 cells /uL 1500-7 800 normal Not Available [address], [address], 07/23/2023 17:10:02 07/20/19 24 07/23/2023 CBC (INCL UDES DIFF/ PLT) absolute lymphocytes 2227 cells /uL 850-39 00 normal Not Available [address], [address], 07/23/2023 17:10:02 07/20/19 24 07/23/2023 CBC (INCL UDES DIFF/ PLT) absolute monocytes 360 cells /uL 200-95 0 normal Not Available [address], [address], 07/23/2023 17:10:02 07/20/19 24 07/23/2023 CBC (INCL UDES DIFF/ PLT) absolute eosinophils 191 cells /uL 15-500 normal Not Available [address], [address], 07/23/2023 17:10:02 07/20/19 24 07/23/2023 CBC (INCL UDES DIFF/ PLT) absolute basophils 81 cells /uL 0-200 normal Not Available [address], [address], 07/23/2023 17:10:02 07/20/19 24 07/23/2023 CBC (INCL UDES DIFF/ PLT) neutrophils 50.7 % normal Not Available [address], [address], 07/23/2023 17:10:02 07/20/19 24 07/23/2023 CBC (INCL UDES DIFF/ PLT) lymphocytes 38.4 % normal Not Available [facility] [address], [address], 07/23/2023 17:10:02 07/20/19 24 07/23/2023 CBC (INCL UDES DIFF/ PLT) monocytes 6.2 % normal Not Available [facility] [address], [address], 07/23/2023 17:10:02 07/20/19 24 07/23/2023 CBC (INCL UDES DIFF/ PLT) eosinophils 3.3 % normal Not Available [place] [address] [place], [address], 07/23/2023 17:10:02 07/20/19 24 07/23/2023 CBC (INCL UDES DIFF/ PLT) basophils 1.4 % normal Not Available [address] [place], [address], 07/23/2023 17:10:02 07/20/19 24 07/23/2023 VITAM IN B12/F OLATE , SERUM PANEL vitamin B12 535 pg/mL 200-11 00 normal Not Available [address], [address], 07/23/2023 17:10:04 07/20/19 24 07/23/2023 VITAM IN B12/F OLATE , SERUM PANEL folate, serum >24.0 NG/mL normal Refer ence Range Low: <3.4 Borde rline : 3.4-5 .4 Amanda l: >5.4 Not Available [address], [address], 07/23/2023 17:10:04 07/20/19 24 07/23/2023 GENET SCREE [...] Li rns ([email or web address] [facility]- 2017- 0052) For addit ional infor eliezer pascal e refer to http: //[facility].Que stDia gnost ics.c om/fa q/FAQ 177 (This link is being provi ded for infor angelique loomis/ educa raymundo l purpo ses only. ) Not Available [employer] [place] [address] [address] [place], [address], 07/23/2023 17:10:04 07/20/19 24 07/23/2023 RHEUM ATOID FACTO R rheumatoid factor <14 IU/mL <14 normal Not Available [employer] [place] [address] [address] [place], [address], 07/23/2023 17:10:05 07/20/19 24 07/23/2023 C-ALLIE CTIVE PROTE IN C-reactive protein 1.0 mg/L <8.0 normal Not Available [place] [address] [address] [place], [address], 07/23/2023 17:10:07 07/20/19 24 07/23/2023 INSUL IN insulin 13.4 uIU/m L normal Refer ence Range < or = 18.4 Risk: Optim al < or = 18.4 Moder ate NA High >18.4 Adult cardi ovasc ular event risk categ ory cut point s (opti mal, moder ate, high) are based on Insul in Refer ence Inter jordon studi es perfo rmed at [facility] Diagn ostic s in 2021. Not Available [facility] [address] [address] [place], [address], 07/23/2023 17:10:08 07/20/19 24 07/23/2023 VITAM IN B6, PLASM A vitamin B6, plasma 24.0 NG/mL 2.1-21 .7 high (Note ) VITAM IN SUPPL EMENT ATION WITHI N 24 HOURS PRIOR TO BLOOD DRAW MAY AFFEC T THE ACCUR ACY OF RESUL TS. THIS TEST WAS DEVEL OPED AND ITS VIRAL TICAL PERFO RMANC E EROS CTERI STICS HAVE BEEN DETER MINED BY [employer]. IT HAS NOT BEEN CLEAR ED OR APPRO BRIANNA BY THE FDA. THIS ASSAY HAS BEEN VALID ATED PURSU ANT TO THE CLIA REGUL ATION S AND IS USED FOR CLINI RAVI PURPO SES. MDF med fusio n [address] [facility] [address] [place] [address] [phone] Santiago hurley MD Not Available [facility] [facility] [address] [address] , [place], [address], 07/23/2023 17:10:09 06/29/20 22 06/25/2022 imagi ng/di agnos tic resul t No observ ation record ed. [id number] [facility] [address] [place], [address], 08/30/2022 20:22:35 08/04/19 23 08/04/2022 MAMMO , scree basil, digit al, bilat eral No observ ation record ed. [id number] Not Available 08/30/2022 20:22:35 02/24/20 23 02/22/2023 XR, foot, 3 or more view No observ ation record ed. [email or web address] [address], [place], [address], 07/03/2023 16:15:28 Result Notes None recorded. Problems Name Problem SNOMED Code Status Onset Date Resolution Date Notes Provider Name and Address Organization Details Recorded Time Pain in upper limb 306285737 Active 2021 Not Available [facility] 3 20:21:17 Edema of lower extremity 495105097 Active 2021 [facility] Available [facility] 3 20:21:17 Cervical radiculiti s 89215298 Active 2021 Not Available [facility] 3 20:21:17 Herpes labialis 9811802 Active 2021 Not Available [facility] 3 20:21:17 Long-term drug therapy Active 2021 Not Available [facility] 3 20:21:17 Mixed hyperlipid emia 394263960 Active 2019 Not Available [facility] 3 20:21:17 Heart murmur 79478133 Active 2021 Not Available [facility] 3 20:21:17 Weight gain 0854298 Active 2022 BOYD Reza [address], [address], [place], [address] , [employer] 3 13:00:29 Mitral valve regurgitat ion 14207771 Active 2022 BOYD Reza [address], [address], [place], [address] , [employer] 3 11:41:49 Tricuspid valve regurgitat ion 475191064 Active 2022 BOYD Reza [address], [address], [place], [address] , [employer] 3 11:42:03 Pain of multiple joints 23886219 Active 2022 BOYD Reza [address], [address], [place], [address] , [employer] 3 12:04:34 Pain in both feet 5178035467423 9102 Active 2022 BOYD Reza [address], [address], [place], [address] , [employer] 3 12:05:20 Notes:05/2020-COVID Pos Problem Notes None recorded. Procedures Surgical History Date Name Laterality Status Provider Name and Address Organization Details Recorded Time Incision of foot fascia completed Not Available formerly [facility] 08/30/2022 20:20:26 Imaging Results None recorded. Procedure Notes None recorded. Medical Equipment None [...] % 78 /min 16 /min 97.7 [degF] 57997.3 3 g 120 mm[Hg] 80 mm[Hg] Not Available [facility] 3 20:20:50 Date Recorded Body mass index (BMI) Heart rate Body height Oxygen saturation Oxygen saturation in Arterial blood by Pulse oximetry Respiratory rate Body temperature Body weight Systolic blood pressure Diastolic blood pressure Provider Name and Address Organization Details Last Updated DateTime 2 35.4 kg/m2 92 /min 162.56 cm 98 % 98 % 16 /min 98.1 [degF] 24906.3 9 g 120 mm[Hg] 66 mm[Hg] Not Available [facility] 3 20:20:50 Date Recorded Body height Body temperature Body mass index (BMI) Body weight Respiratory rate Oxygen saturation Oxygen saturation in Arterial blood by Pulse oximetry Heart rate Systolic blood pressure Diastolic blood pressure Provider Name and Address Organization Details Last Updated DateTime 3 162.56 cm 98.3 [degF] 28.2 kg/m2 83145.1 5 g 16 /min 98 % 98 % 93 /min 118 mm[Hg] 72 mm[Hg] NIDHI Reyna [place] [facility] [employer] [facility] 3 11:38:20 Date Recorded Body mass index (BMI) Body height Oxygen saturation Oxygen saturation in Arterial blood by Pulse oximetry Heart rate Body temperature Body weight Systolic blood pressure Diastolic blood pressure Provider Name and Address Organization Details Last Updated DateTime 1 35.1 kg/m2 162.56 cm 98 % 98 % 90 /min 98.2 [degF] 05047.6 4 g 122 mm[Hg] 80 mm[Hg] Not Available [facility] 20:20:50 Social History Question Answer Notes LastModified by Organizat ion Details LastModified Time Tobacco Smoking Status Never Smoker Not Available [facility] 08/30/2022 20:20:17 Do You Have An Advance Directive? No [id number] Information not available 08/30/2022 Do You Wear A Helmet When Biking? Yes MIGRATION.892307 8042 Information not available 08/30/2022 What Is Your Level Of Caffeine Consumption? Heavy MIGRATION.743758 8428 Information not available 08/30/2022 How Much Tobacco Do You Chew? None MIGRATION.171144 8676 Information not available 08/30/2022 In The 14 Days Before Symptom Onset, Have You Had Close Contact With A Laboratory-confir med COVID-19 While That Case Was Ill? No MIGRATION.674692 5275 Information not available 08/30/2022 In The 14 Days Before Symptom Onset, Have You Had Close Contact With A Person Who Is Under Investigation For COVID-19 While That Person Was Ill? No MIGRATION.714624 0460 Information not available 08/30/2022 What Type Of Diet Are You Following? REGULAR MIGRATION.781168 9400 Information not available 08/30/2022 Which Illicit Or Recreational Drugs Have You Used? None MIGRATION.323818 9135 Information not available 08/30/2022 What Is The Highest Grade Or Level Of School You Have Completed Or The Highest Degree You Have Received? [id number] MIGRATION.316674 8042 Information not available 08/30/2022 Have There Been Any Changes To Your Family Or Social Situation? No MIGRATION.942590 0989 Information not available 08/30/2022 What Is The Fluoride Status Of Your Home? Unknown MIGRATION.315000 3417 Information not available 08/30/2022 Do You Use Insect Repellent Routinely? No MIGRATION.679143 3424 Information not available 08/30/2022 Where Do You Live? [place] MIGRATION.281114 6877 Information not available 08/30/2022 Do You Have A Medical Power Of Hand Collator? No MIGRATION.204260 1787 Information not available 08/30/2022 What Was The Date Of Your Most Recent Tobacco Screening? 02/16/2022 MIGRATION.996548 6309 Information not available 08/30/2022 Do You Have Any Pets? Yes MIGRATION.726734 8169 Information not available 08/30/2022 What Is Your Relationship Status? MIGRATION.099049 1122 Information not available 08/30/2022 Do You Use Your Seat Belt Or Car Seat Routinely? Yes MIGRATION.894261 6832 Information not available 08/30/2022 Do You Have Smoke And Carbon Monoxide Detectors In Your Home? Yes MIGRATION.472955 9197 Information not available 08/30/2022 Are You Passively Exposed To Smoke? No MIGRATION.234971 3159 Information not available 08/30/2022 Are There Any Smokers In Your House? No MIGRATION.519306 3807 Information not available 08/30/2022 How Much Tobacco Do You Smoke? No MIGRATION.963539 6923 Information not available 08/30/2022 Do You Use Sunscreen Routinely? Yes MIGRATION.351588 2250 Information not available 08/30/2022 Have You Recently Traveled Abroad? No MIGRATION.742007 8964 Information not available 08/30/2022 Do You Have Any Dietary Restrictions? No MIGRATION.116118 0727 Information not available 08/30/2022 Sex: Unknown Functional Status Question Answer Note LastModified by Organizat ion Details LastModified Time Do you use any illicit or recreational drugs? No MIGRATION.310639 3922 Information not available 08/30/2022 Do you or have you ever used any other forms of tobacco or nicotine? No MIGRATION.944379 3708 Information not available 08/30/2022 What is your level of alcohol consumption? Occasional MIGRATION.053650 2788 Information not available 08/30/2022 Do you or have you ever used smokeless tobacco? 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 Never used electronic cigarettes MIGRATION.927774 3916 Information not available 08/30/2022 What is your exercise level? Moderate MIGRATION.299539 1350 Information not available 08/30/2022 Mental Status Question Answer Note LastModified by Organizat ion Details LastModified Time Do you feel stressed (tense, restless, nervous, or anxious, or unable to sleep at night)? [id number] MIGRATION.[id number] 6 Information not available 08/30/2022 Family History Relationship Description Onset Age of this Age Resolved Age Notes LastModified by Organization Details LastModified Time Mother Coronary arterioscler osis MIGRATION.[id number] Not available 08/30/2022 20:20:27 Unspecified Relation Adult attention deficit hyperactivit y disorder Child MIGRATION.347 [id number] Not available 08/30/2022 20:20:27 Paternal Grandfather Myocardial infarction MIGRATION.693 [id number] Not available 08/30/2022 20:20:27 Medical History Condition [...] influenza, unspecified formulation 9 completed Not Available [facility] 08/30/2022 20:22:28 Past Encounters Encounter ID Performer Location Encounter Start Date Encounter Closed Date Diagnosis/Indication Diagnosis SNOMED-CT Code Diagnosis ICD10 Code Diagnosis Note [id number] BOYD Reza [facility] Internal Med [place] [address] [place] [address] 12/02/2020 00:00:00 12/25/2020 19:52:04 [id number] BOYD Reza [facility] Internal Med [place] [address] [place] [address] 06/02/2021 00:00:00 06/29/2021 00:00:55 [id number] Griffin Link MD [facility] Internal Med [place] [address] [place] [address] 12/01/2021 00:00:00 12/01/2021 15:35:21 [id number] Griffin Link MD [facility] Internal Med [place] [address] [place] [address] 02/16/2022 00:00:00 02/26/2022 17:16:57 [id number] BOYD Reza [facility] Internal Med [place] [address] [place] [address] 08/24/2022 00:00:00 08/26/2022 18:13:27 [id number] BOYD Reza [facility] Internal Med [place] [address] [place] [address] 02/22/2023 11:33:46 02/22/2023 12:10:02 Mixed hyperlipidemia 107219960 E78.2 pt stopped her statin. wants to see labs now after weight loss Long-term drug therapy 237309781 Z79.899 all labs are due Adult heal th examination 846901088 Z00.01 well exam completed Edema of l ower extremity 928394714 R60.0 stable on maxzide 37.5mg Mitral jordon ve regurgitation 95172749 I34.0 trace noted on echo hx. Tricuspid valve regurgitation 892470553 I07.1 trace noted on echo hx. Diabetes m ellitus screening 740755705 Z13.1 screening diabetes due Pain of mu ltiple joints 00935776 M25.50 check CRP, ESR, RA, Uric acid and GENET panel. Pain in both feet 568940 3783 5541991 M79.672 check xray foot Health Concerns Section Related Observation LastModified by Organization Detai ls LastModified Time None Recorded Concern Status LastModified by Organization Details LastModified Time None Recorded Advance Directives Directive N: Payers Insurance Date Sequence Insurance Name Policy Number Policy Urena Covered Member ID Urena Member ID Guarantor Name 03/01/2023 1 MILY (PPO) [id number] Riley Shane [id number] Kaye Shane Notes Date Note Type [...] in exercise capacity; no snoring Not Available [place] [employer] [facility] [employer] [facility] 06/29/2021 00:00:55 02/17/20 22 text/htm l HyperlipidemiaReported bypatient.Duration:chronic Control:usually well controlled; improving Current Therapy:currently taking: (rosuvastatin 10mg) Compliance:compliant; compliant with diet; exercises Complications:no coronary artery disease; no peripheral artery disease; no cardiovascular disease Not Available [employer] [facility] 02/26/2022 17:16:57 08/24/19 23 text/htm l HyperlipidemiaReported bypatient.Duration:chronic Control:usually well controlled Current Therapy:she stopped taking her statin in May. Compliance:compliant; compliant with diet; exercises Complications:no coronary artery disease; no peripheral artery disease; no cardiovascular disease Not Available [place] [employer] [facility] [employer] [facility] 08/26/2022 18:13:27 02/23/20 23 text/htm l HyperlipidemiaReported bypatient.Duration:chronic Control:usually well controlled Compliance:compliant Complications:no coronary artery disease; no peripheral artery disease; no cardiovascular disease Wellness BOYD Reza [address] [place] [address], [facility] [address], [place], [address], [facility] [employer] [facility] [employer] [facility] 02/28/2023 21:32:29 OBGyn Episode No OBEpisode recorded.
--- OUTSIDE RECORDS SUMMARY | 2024-12-12 21:24 | XMS_ITS | Clinical Summary ---
Author Organization [facility] at the [facility] Center Address [address] [place] [address] Care Team Providers Care Energy Consultant Name Role Phone Guillerminaminh Crissy NIX Primary Care Pr ovider Allergies No [...] by your doctor. 30 capsule 2 Active Encounters Date Type Department Care Team Description 10/31/2024 8:32 AM CDT - 10/31/2024 11:59 PM CDT Hospital Encounter [address] [address] Pre-employment health screening examination Discharge Disposition: Discharge to home or self care 10/31/2024 8:30 AM CDT Lab [facility] Medical Group Outpatient Lab at [address] [address] 10/29/2024 Orders Only [facility] Occupatiuonal Health [address] [place] [address] Room 3420 (Third Floor) [place] [address] Omar Ansari MD Pre-employment health screening examination (Primary Dx) from Last 3 Months Social History Tobacco Use Types Packs/Day Years Used Date Smoking Tobacco: Never Assessed Comments Unknown Sex and Gender Information Value Date Recorded Sex Assigned at Not on file Legal Sex Female 12:34 AM SPRING ENCASER Gender Identity Not on file Sexual Orientation Not on file Last Filed Vital Signs Vital Sign Reading Time Taken Comments Blood Pressure 105/59 06/25/2022 7:49 PM SPRING ENCASER Pulse 103 06/25/2022 7:49 PM SPRING ENCASER Temperature 36.8 C (98.3 F) 06/25/2022 7:49 PM SPRING ENCASER Respiratory Rate 18 06/25/2022 7:49 PM SPRING ENCASER Oxygen Saturation 98% 06/25/2022 7:49 PM SPRING ENCASER Inhaled Oxygen Concentration - - Weight 74.8 kg (165 lb) 06/25/2022 7:49 PM SPRING ENCASER Height 162.6 cm (5' 4) 10/23/2014 11:54 AM CDT Body Mass Index [...] 5 season) 2024 07/27/2020, 06/29/2020 Influenza Vaccine (Season Ended) 2025 03/02/2019 Pneumococcal vaccine <65 Aged Out No longer eligible based on patient's age to complete this topic Procedures Procedure Name Priority Date/Time Associated Diagnosis Comments VARICELLA ZOSTER ANTIBODY, IGG Routine 10/31/2024 8:32 AM CDT Pre-employment health screening examination THINPREP PAP Routine 08/12/2014 1:00 PM SPRING ENCASER from Last 3 Months or Most Recently Relevant to Health Maintenance Results * (ABNORMAL) Varicella Zoster IgG antibody Blood (10/31/2024 8:32 AM CDT) Pathologist [facility] VZV IgG Nonreacti ve(A) Reactive Comment: Non-reactive: No detectable antibody to Varicella-zoster virus. Such individuals are presumed to be uninfected and to be susceptible to primary infection. Testing performed by: [facility], [address] [place] [address] Blood 10/31/2024 8:32 AM CDT 11/01/2024 12:10 AM CDT Clarissa RUANO CH - 11/01/2024 12:42 PM CDT Bill to [facility] [employer] - 1520. Patient is employed by/enrolled at:->[facility] Home Care Services Omar Ansari MD LAB MICROBIOLOGY - GENERAL OR DERABLES Final Result [facility] [address] Department [place] [address] * ThinPrep Pap (08/12/2014 1:00 PM SPRING ENCASER) Pathologist [facility] Thin Prep Pap Smear SEE BELOW () 08/22 10:47 AM SPRING ENCASER [facility] HISTORICAL RESULTS Comment: Automatic Furnace Operator ThinPrep Cytology Final Report ThinPrep Pap Specimen Source Cervix/Endocervix Specimen Adequacy Satisfactory for interpretation, endocervical cells (transformation zone) present. Interpretation Negative for intraepithelial lesion or malignancy. 08/21/14 Channel Development Director: Nani Yeager, LAKESHIA(ASCP) Reviewed by: JUANITO 08/22/14 Verified By: Petra Taveras, CT(ASCP) electronic signature [facility], Department of Pathology For questions regarding this case, call ext. [phone] CPT Code(s) 01463 Clinical History LMP: [id number] : N : N IUD: N Hormone Therapy: N Postmenopausal: N Previous surgery date and type: N Hysterectomy: N Chemotherapy: N MAURICIO Exposure: N Radiation: N Previous Abnormal Pap? Details: N Diagnostic or Screening Pap Test: Screening Performed by [employer], [address] [place] [address] [email or web address], Khurram Esparza MD - Lab. Director 08/12/2014 1:00 PM SPRING ENCASER 08/12/2014 4:07 PM SPRING ENCASER Jose A Wiggins MD LAB PATHOLOGY ORDERABLE S Final Result [facility] HISTORICAL RESULTS from Last 3 Months or Most Recently Relevant to Health Maintenance Insurance [email or web address] [facility] [email or web address] CHOICE DE Care Teams Energy Consultant Relationship Specialty Start Date End Date Crissy Huitron PA PCP - General Physician Rack Washer 03/30/20
--- OUTSIDE RECORDS SUMMARY | 2024-12-12 21:24 | XMS_ITS | Referral Summary ---
Author Organization [facility] at the [facility] Office Center Address [address] [place] [address] Care Team Providers Care Plastic Boat Buffer Name Role Phone GuillerminaCrissy wilkinson Caitlyn NIX Primary Care Pr ovider Encounters Date Type Department Care Team Description 10/31/2024 8:32 AM CDT - 10/31/2024 11:59 PM CDT Hospital Encounter [address] [address] Pre-employment health screening examination Discharge Disposition: Discharge to home or self care 10/31/2024 8:30 AM CDT Lab [facility] Medical Group Outpatient Lab at [address] [address] 10/29/2024 Orders Only [facility] Healthcare Occupatiuonal Health [address] [place] [address] Room 3420 (Third Floor) [place] [address] Omar Ansari MD Pre-employment health screening examination (Primary Dx) from Last 3 Months Allergies No known active allergies Medications ketorolac [...] as instructed by your doctor. 30 capsule Active Social History Tobacco Use Types Packs/Day Years Used Date Smoking Tobacco: Never Assessed Comments Unknown Sex and Gender Information Value Date Recorded Sex Assigned at Not on file Legal Sex Female 12:34 AM HAT SPRAYER Gender Identity Not on file Sexual Orientation Not on file Last Filed Vital Signs Vital Sign Reading Time Taken Comments Blood Pressure 105/59 06/25/2022 7:49 PM HAT SPRAYER Pulse 103 06/25/2022 7:49 PM HAT SPRAYER Temperature 36.8 C (98.3 F) 06/25/2022 7:49 PM HAT SPRAYER Respiratory Rate 18 06/25/2022 7:49 PM HAT SPRAYER Oxygen Saturation 98% 06/25/2022 7:49 PM HAT SPRAYER Inhaled Oxygen Concentration - - Weight 74.8 kg (165 lb) 06/25/2022 7:49 PM HAT SPRAYER Height 162.6 cm (5' 4) 10/23/2014 11:54 AM CDT Body Mass Index 28.32 10/23/2014 11:54 AM CDT Plan of Treatment Not on file Procedures Procedure Name Priority Date/Time Associated Diagnosis Comments VARICELLA ZOSTER ANTIBODY, IGG Routine 10/31/2024 8:32 AM CDT Pre-employment health screening examination THINPREP PAP Routine 08/12/2014 1:00 PM HAT SPRAYER from Last 3 Months or Most Recently Relevant to Health Maintenance Results * (ABNORMAL) Varicella Zoster IgG antibody Blood (10/31/2024 8:32 AM CDT) VZV IgG Nonreacti ve(A) Reactive Comment: Non-reactive: No detectable antibody to Varicella-zoster virus. Such individuals are presumed to be uninfected and to be susceptible to primary infection. Testing performed by: [facility], [address] [facility], [place]., [address] Blood 10/31/2024 8:32 AM CDT 11/01/2024 12:10 AM CDT Narrative [facility]DEN RICARDO - 11/01/2024 12:42 PM CDT Bill to [facility] - 1520. Patient is employed by/enrolled at:->[facility] Home Care Services Omar Ansari MD LAB MICROBIOLOGY - GENERAL OR DERABLES Final Result [place] [address] Department [place] [address] * ThinPrep Pap (08/12/2014 1:00 PM HAT SPRAYER) Thin Prep Pap Smear SEE BELOW () 08/22 10:47 AM HAT SPRAYER [facility] HISTORICAL RESULTS Comment: Search Developer ThinPrep Cytology Final Report ThinPrep Pap Specimen Source Cervix/Endocervix Specimen Adequacy Satisfactory for interpretation, endocervical cells (transformation zone) present. Interpretation Negative for intraepithelial lesion or malignancy. 08/21/14 Tank Maker Wood: LAKESHIA Hartman(ASCP) Reviewed by: JUANITO 08/22/14 Verified By: LAKESHIA Solomon(ASCP) electronic signature [facility], Department of Pathology For questions regarding this case, call ext. [phone] CPT Code(s) 52977 Clinical History LMP: [id number] : N : N IUD: N Hormone Therapy: N Postmenopausal: N Previous surgery date and type: N Hysterectomy: N Chemotherapy: N MAURICIO Exposure: N Radiation: N Previous Abnormal Pap? Details: N Diagnostic or Screening Pap Test: Screening Performed by [facility], [address] [place] [id number] [email or web address], Khurram Esparza MD - Lab. Director 08/12/2014 1:00 PM HAT SPRAYER 08/12/2014 4:07 PM HAT SPRAYER Jose A Wiggins MD LAB PATHOLOGY ORDERABLE S Final Result [facility] HISTORICAL RESULTS from Last 3 Months or Most Recently Relevant to Health Maintenance Insurance [employer] [place] Care Teams Plastic Boat Buffer Relationship Specialty Start Date End Date Crissy Huitron PA PCP - General Physician Hearing Aid Technician 03/30/20
--- OUTSIDE RECORDS SUMMARY | 2024-12-12 21:24 | XMS_ITS | Clinical Summary ---
Author Organization [facility] [employer] Address [address] [place] [address] Care Team Providers Care Trimming Machine Set Up Operator Name Role Phone Unavailable Primary Care Provider Unavailabl e Source Comments [facility],non-owned Affiliates and Associated Physician Practices is amultiple site organization consisting of ambulatory clinics and hospital sitesin [place], [place], [place] and [place]. This disclosure is being madepursuant to the Care Everywhere program and may not contain all information available regarding this patient. Last updated 18.[facility] Social History Tobacco Use Types Packs/Day Years Used Date Smoking Tobacco: Never Assessed Comments Unknown Sex and Gender Information Value Date Recorded Sex Assigned at Not on file Legal Sex Female 6:32 AM ELEVATOR OPERATOR SERVICE Gender Identity Not on file Sexual Orientation [...] SCREENING 1976 LIPID TESTING 1976 MAMMOGRAM 1976 HIV SCREENING 12/10/1991 HEPATITIS C SCREENING 12/05/1994 DTAP/TDAP/TD VACCINES (1 - Tdap) 12/10/1995 HEPATITIS B VACCINE (1 of 3 - 19+ 3-dose series) 12/10/1995 PAP SMEAR 1997 PAP with HPV 2006 COVID-19 VACCINE (2023-2 5 season) 2024 07/27/2020, 06/29/2020 DEPRESSION SCREENING 07/02/2024 INFLUENZA VACCINE (Season Ended) 2025 ZOSTER VACCINE (1 of 2) 2026 HIB [...] on patient's age to complete this topic Insurance [facility] Address: [facility] [id number] [place] [address]
--- OUTSIDE RECORDS SUMMARY | 2024-12-12 21:24 | XMS_ITS | Data Portability ---
Author Organization [facility] [place] Address [address] [place] [address] Care Team Providers Care Technician Assistant Name Role Phone DREW ALBRECHT Primary Care [...] 024 KIRSTIE [facility], [address], [place], [address], 4 09:34:31 lipid panel, serum 024 [email or web address] [facility], [address], [place], [address], 5 10:00:36 CMP, serum or plasma 024 [email or web address] [facility], [address], [place], [address], 5 10:00:36 CBC w/ auto diff 024 024 [email or web address] [facility], [address], [place], [address], 5 10:00:36 vitamin B12 + folate, serum or blood 024 [email or web address] [facility], [address], [place], [address], 5 10:00:36 HbA1c (hemoglob in A1c), blood 024 Silicon Cloudnealy2 [facility], [address], [place], [address], 5 10:00:36 insulin, serum 024 Silicon Cloudnealy2 [facility], [address], [place], [address], 5 10:00:36 Referral None recorded. Procedures None recorded. Surgeries None recorded. Imaging None recorded. Medication Orders None recorded. Patient TargetsNo targets recorded. Patient Instructions Encounter Date Encounter Id Patient Instructions Last Modified By Organization Details Last Modified Time 05/21/2024 [id number] A healthy lifestyle: care instructions Not available 05/21/2024 16:03:52 Reason for Referral None Reported. Results Created Date Observation Date Name Description Value Unit Range Abnormal Flag Note LastModifiedBy Organization Detail LastModifiedTime 11/07/19 25 11/06/2024 MAMMO , scree basil, bilat eral No observ ation record ed. [email or web address] [facility] [address], [place], [address], 11/07/2024 13:18:51 12/05/19 25 12/04/2024 MAMMO , diagn ostic , unila teral No observ ation record ed. KIRSTIE [facility] [address], [place], [address], 12/04/2024 19:37:32 Result Notes None recorded. Problems Name Problem SNOMED Code Status Onset Date Resolution Date Notes Provider Name and Address Organization Details Recorded Time Body mass index 30+ - obesity 196973553 Active 024 Rajesh Love MA null, [place] - [facility] 15:37:24 Swelling of bilateral lower limbs 207165192 Active 024 BOYD Reza Attn: Accountin g,[address], [place], [address], [facility] - [facility] 4 18:29:54 Obesity 495264834 Active 024 BOYD Reza Attn: Accountin g,[address], [place], [address], [facility] - SIF 4 18:30:03 Long-term drug therapy Active 024 BOYD Reza Attn: Accountin g,[address], [place], [address], [facility] - SI 4 18:30:14 Problem Notes None recorded. Procedures Surgical History Date Name Laterality Status Provider Name and Address Organization Details Recorded Time 5 dilation and curettage completed Mehreen Vyas [facility] 10/07/2024 10:52:57 Imaging Results None recorded. Procedure Notes None [...] Available Not Avai lable Vitals Date Recorded Systolic blood pressure Diastolic blood pressure Provider Name and Address Organization Details Last Updated DateTime 05/21/2024 120 mm[Hg] 80 mm[Hg] BOYD Reza Attn: Accounting, [facility], [place], [address], [facility] 05/21/2024 16:04:57 Date Recorded Body weight Body mass index (BMI) Body height Oxygen saturation Oxygen saturation in Arterial blood by Pulse oximetry Heart rate Respiratory rate Systolic blood pressure Diastolic blood pressure Provider Name and Address Organization Details Last Updated DateTime 72636.4 g 32.4 kg/m2 160.02 cm 100 % 100 % 79 /min 18 /min 130 mm[Hg] 82 mm[Hg] Rajesh Love MA [facility] 15:39:17 Social History Question Answer Notes LastModified by Organizat ion Details LastModified Time Tobacco Smoking Status Never Smoker Rajesh Love MA null, [facility] 05/21/2024 15:36:52 Do You Have An Advance Directive? No Information not available 05/21/2024 Are You Blind [...] No Information not available 05/21/2024 Are You Deaf Or Do You Have Serious Difficulty Hearing? No Information not available 05/21/2024 What Type Of Diet Are You Following? REGULAR Information not available 05/21/2024 Are There Any [...] Yes Information not available 05/21/2024 Do You Use Sunscreen Routinely? Yes Information not available 05/21/2024 Has Tobacco Cessation Counseling Been Provided? No Information not available 05/21/2024 Sex: Female Functional Status Question Answer Note LastModified by Organizat ion Details LastModified Time Do you use any illicit or recreational drugs? No Information not available 05/21/2024 Do you or have you ever used any other forms of tobacco or nicotine? No Information not available 05/21/2024 What is your level of alcohol consumption? None Information not available 05/21/2024 Are you currently employed? Yes Information not available 05/21/2024 Are you able to care for yourself? 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 Occasional Information not available 05/21/2024 Mental Status Question Answer Note LastModified by Organization D etails LastModified Time Do you feel stressed (tense, restless, nervous, or anxious, or unable to sleep at night)? [id number] Information not available 05/21/2024 Family History Nothing Reported. Medical History No [...] dose or 50 mcg/0.25mL dose 07/27/2020 completed Rajesh Love MA null, [place] [facility] 05/21/2024 15:38:06 COVID-19, mRNA, LNP-S, PF, 100 mcg/0.5mL dose or 50 mcg/0.25mL dose 06/29/2020 completed Rajesh Love [place] null, [place] [facility] 05/21/2024 15:38:06 Influenza, split virus, trivalent, PF 05/14/2024 completed Rajesh Love [place] null, [place] - [facility] 05/21/2024 15:38:06 Influenza, split virus, quadrivalent, PF 05/22/2023 completed Rajesh Love [place] null, [place] [facility] 05/21/2024 15:38:06 Past Encounters Encounter ID Performer Location Encounter Start Date Encounter Closed Date Diagnosis/Indication Diagnosis SNOMED-CT Code Diagnosis ICD10 Code Diagnosis Note [id number] Griffin Link MD [facility] [place] [facility] [address] [place] [address] 05/21/2024 15:05:19 05/21/2024 16:10:08 Body mass index 30+ - obesity 682081626 Z68.32 BMI is 32.4 Obesity 246359591 E66.9 discussed healthy diet, exercise, controllin g carbohydra sanjana and added sugars in the diet Swelling o f bilateral lower limbs 783660847 M79.89 Patient takes her Maxzide low-dose for trace swelling over bilateral lower extremitie s 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 She does not have any swelling today and medication is still working effectivel y for her. Cholesterol screening 27 5193963 Z13.220 Fasting lipid panel is due Diabetes m ellitus screening 620969551 Z13.1 Annual diabetes screening is due Long-term drug therapy 115580461 Z79.891 cmp, cbc and b12, folate labs are due Thyroid di sorder screening 268377184 Z13.29 Thyroid function testing ordered for annual review Adult [facility] examination 228457307 Z00.00 Annual wellness exam completed Health Concerns Section Related Observation LastModified by Organization Detai ls LastModified Time None Recorded Concern Status LastModified by Organization Details LastModified Time None Recorded Advance Directives Directive N: Payers Insurance Date Sequence Insurance Name Policy Number Policy Urena Covered Member ID Urena Member ID Guarantor Name 06/02/2024 1 [place] [id number] Riley Shane [id number] Kaye Shane Notes Date Note Type Note Provider Name and Address Organization Details Recorded Time 05/21/2024 text/html Patient is here for routine annual wellness exam. 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 She is due for labs. BOYD Reza Attn: Accounting,[address], [place], [address], [place] [facility] 06/01/2024 18:30:56 OBGyn Episode No OBEpisode recorded.
[2024-12-12 21:37] VITALS: BP 120/69; PULSE 88; RESP 16; TEMP 37; O2SAT 98
[2024-12-12 22:23] LABS: Basophils Absolute Auto 0.1 K/mm3 (0.0-0.1); Basophils Percent Auto 0.5 % (0.2-1.2); Eosinophils Absolute Auto 0.2 K/mm3 (0-0.3); Eosinophils Percent Auto 1.4 % (0-4.4); Hemoglobin 11.7 g/dL (12.0-15.0); Immature Granulocyte Absolute 0.04 K/mm3 (0.00-0.031); Immature Granulocyte Percent A 0.3 % (0-0.5); Lymphocytes Absolute Auto 2.48 K/mm3 (0.9-3.2); Mean Corpuscular HGB Conc 33.4 g/dl (32-36); Mean Corpuscular Hemoglobin 29.1 pg (26-34); Mean Corpuscular Volume 87.1 fl (80-100); Mean Platelet Volume 10.5 fl (7.4-10.4); Neutrophils Percent Auto 72.8 % (45.5-73.1); Platelet Count Result 221 k/mm3 (150-375); Red Blood Count 4.02 M/mm3 (4.2-5.4); Red Cell Distribution Width 12.9 % (11.5-14.5); White Blood Count 13.8 K/mm3 (4.5-10.0)
--- NOTE | 2024-12-12 22:26 | ECG_ITS ---
Test Date: 2024-12-13 00:44:11 Measurements Intervals [place] Rate: 68 P: 9 VT: 154 QRS: 19 QRSD: 91 T: -2 QT: 392 QTc: 418 Interpretive Statements SINUS RHYTHM EARLY PRECORDIAL R/S TRANSITION LOW QRS VOLTAGE IN PRECORDIAL LEADS NONSPECIFIC ST-T WAVE ABNORMALITY- ANTEROLAT/INF LEADS BORDERLINE ECG No previous ECG available for comparison Electronically Signed On 12-13-2024 07:32:46 CDT by Tripp Lanza D.O.
--- OUTSIDE RECORDS SUMMARY | 2024-12-12 22:32 | XMS_ITS | Referral Summary ---
Author Organization [facility] Address [address] [place] [address] Care Team Providers Care Financial Planning Assistant Name Role Phone GuillerminaCrissy wilkinson Caitlyn NIX Primary Care Pr ovider Encounters Date Type Department Care Team Description 10/31/2024 8:32 AM CDT - 10/31/2024 11:59 PM CDT Hospital Encounter [address] [id number] Pre-employment health screening examination Discharge Disposition: Discharge to home or self care 10/31/2024 8:30 AM CDT Lab [facility] Outpatient Lab at [address] [address] 10/29/2024 Orders Only [facility] Occupatiuonal Health [address] [place] [address] Room 3420 (Third Floor) [place] [address] Omar Ansari MD Pre-employment health screening examination [...] on file Legal Sex Female 12:34 AM K 8 SCHOOL PRINCIPAL Gender Identity Not on file Sexual Orientation Not on file Last Filed Vital Signs Vital Sign Reading Time Taken Comments Blood Pressure 105/59 06/25/2022 7:49 PM K 8 SCHOOL PRINCIPAL Pulse 103 06/25/2022 7:49 PM K 8 SCHOOL PRINCIPAL Temperature 36.8 C (98.3 F) 06/25/2022 7:49 PM K 8 SCHOOL PRINCIPAL Respiratory Rate 18 06/25/2022 7:49 PM K 8 SCHOOL PRINCIPAL Oxygen Saturation 98% 06/25/2022 7:49 PM K 8 SCHOOL PRINCIPAL Inhaled Oxygen Concentration - - Weight 74.8 kg (165 lb) 06/25/2022 7:49 PM K 8 SCHOOL PRINCIPAL Height 162.6 cm (5' 4) 10/23/2014 11:54 AM CDT Body Mass Index 28.32 10/23/2014 11:54 AM CDT Plan of Treatment Not on file Procedures Procedure Name Priority Date/Time Associated Diagnosis Comments VARICELLA ZOSTER ANTIBODY, IGG Routine 10/31/2024 8:32 AM CDT Pre-employment health screening examination THINPREP PAP Routine 08/12/2014 1:00 PM K [employer] SCHOOL PRINCIPAL from Last 3 Months or Most Recently Relevant to Health Maintenance Results * (ABNORMAL) Varicella Zoster IgG antibody Blood (10/31/2024 8:32 AM CDT) VZV IgG Nonreacti ve(A) Reactive Comment: Non-reactive: No detectable antibody to Varicella-zoster virus. Such individuals are presumed to be uninfected and to be susceptible to primary infection. Testing performed by: [facility], [address], [place]., [address] Blood 10/31/2024 8:32 AM CDT 11/01/2024 12:10 AM CDT Narrative ALDEN RICARDO - 11/01/2024 12:42 PM CDT Bill to [facility] - 1520. 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 Interpretation Negative for intraepithelial lesion or malignancy. 08/21/14 Prosecuting Attorney: LAKESHIA Hartman(ASCP) Reviewed by: JUANITO 08/22/14 Verified By: LAKESHIA Solomon(ASCP) electronic signature [facility], Department of Pathology For questions regarding this case, call ext. [phone] CPT Code(s) 88912 Clinical History LMP: [id number] : N : N IUD: N Hormone Therapy: N Postmenopausal: N Previous surgery date and type: N Hysterectomy: N Chemotherapy: N MAURICIO Exposure: N Radiation: N Previous Abnormal Pap? Details: N Diagnostic or Screening Pap Test: Screening Performed by [email or web address], [address] [place] [id number] [email or web address], Khurram Esparza MD - Lab. Director 08/12/2014 1:00 PM K [employer] S[employer]OL PRINCIPAL 08/12/2014 4:07 PM K [employer] SCHOOL PRINCIPAL Jose A Wiggins MD LAB PATHOLOGY ORDERABLE S Final Result [facility] [place] [facility] [place] from Last 3 Months or Most Recently Relevant to Health Maintenance Insurance [address] [place] Care Teams Financial Planning Assistant Relationship Specialty Start Date End Date Crissy Huitron PA PCP - General Physician Sample Clerk 03/30/20
--- OUTSIDE RECORDS SUMMARY | 2024-12-12 22:32 | XMS_ITS | Clinical Summary ---
Author Organization [facility] Address [address] [place] [address] Care Team Providers Care Power Line Installer Name Role Phone Guillerminaminh Crissy NIX Primary [...] - 10/31/2024 11:59 PM CDT Hospital Encounter [address] [address] Pre-employment health screening examination Discharge Disposition: Discharge to home or self care 10/31/2024 8:30 AM CDT Lab [facility] Outpatient Lab at [address] [address] 10/29/2024 Orders Only [facility] Occupatiuonal Health [address] [place] [address] Room 3420 (Third Floor) [place] [address] Omar Ansari MD Pre-employment health screening examination (Primary Dx) from Last 3 Months Social History Tobacco Use Types Packs/Day Years Used Date Smoking Tobacco: Never Assessed Comments Unknown Sex and Gender Information Value Date Recorded Sex Assigned at Not on file Legal Sex Female 12:34 AM SQL SERVER DEVELOPER Gender Identity Not on file Sexual Orientation Not on file Last Filed Vital Signs Vital Sign Reading Time Taken Comments Blood Pressure 105/59 06/25/2022 7:49 PM SQL SERVER DEVELOPER Pulse 103 06/25/2022 7:49 PM SQL SERVER DEVELOPER Temperature 36.8 C (98.3 F) 06/25/2022 7:49 PM SQL SERVER DEVELOPER Respiratory Rate 18 06/25/2022 7:49 PM SQL SERVER DEVELOPER Oxygen Saturation 98% 06/25/2022 7:49 PM SQL SERVER DEVELOPER Inhaled Oxygen Concentration - - Weight 74.8 kg (165 lb) 06/25/2022 7:49 PM SQL SERVER DEVELOPER Height 162.6 cm (5' 4) 10/23/2014 11:54 [...] examination THINPREP PAP Routine 08/12/2014 1:00 PM SQL SERVER DEVELOPER from Last 3 Months or Most Recently Relevant to Health Maintenance Results * (ABNORMAL) Varicella Zoster IgG antibody Blood (10/31/2024 8:32 AM CDT) Pathologist [facility] VZV IgG Nonreacti ve(A) Reactive Comment: Non-reactive: No detectable antibody to Varicella-zoster virus. Such individuals are presumed to be uninfected and to be susceptible to primary infection. Testing performed by: [facility], [address] [place] [address] Blood 10/31/2024 8:32 AM CDT 11/01/2024 12:10 AM CDT Clarissa RUANO CH - 11/01/2024 12:42 PM CDT Bill to [facility] [employer] - 1520. Patient is employed by/enrolled at:->[facility] Home Care Services Omar Ansari MD LAB MICROBIOLOGY - GENERAL OR DERABLES Final Result [facility] [address] [address] Department [place] [address] * ThinPrep Pap (08/12/2014 1:00 PM SQL SERVER DEVELOPER) Pathologist [facility] Thin Prep Pap Smear SEE BELOW () 08/22 10:47 AM SQL SERVER DEVELOPER [facility] HISTORICAL RESULTS Comment: Afloat Cryptologic Manager ThinPrep Cytology Final Report ThinPrep Pap Specimen Source Cervix/Endocervix Specimen Adequacy Satisfactory for interpretation, endocervical cells (transformation zone) present. Interpretation Negative for intraepithelial lesion or malignancy. 08/21/14 Supervisor Matrix: Nani Yeager, LAKESHIA(ASCP) Reviewed by: JUANITO 08/22/14 Verified By: Petra Taveras, CT(ASCP) electronic signature [facility], Department of Pathology For questions regarding this case, call ext. [phone] CPT Code(s) 51504 Clinical History LMP: [id number] : N : N IUD: N Hormone Therapy: N Postmenopausal: N Previous surgery date and type: N Hysterectomy: N Chemotherapy: N MAURICIO Exposure: N Radiation: N Previous Abnormal Pap? Details: N Diagnostic or Screening Pap Test: Screening Performed by [facility], [address] [place] [id number] [email or web address], Khurram Esparza MD - Lab. Director 08/12/2014 1:00 PM SQL SERVER DEVELOPER 08/12/2014 4:07 PM SQL SERVER DEVELOPER Jose A Wiggins MD LAB PATHOLOGY ORDERABLE S Final Result [facility] HISTORICAL RESULTS from Last 3 Months or Most Recently Relevant to Health Maintenance Insurance Code [employer] [facility] Code [employer] Care Teams Power Line Installer Relationship Specialty Start Date End Date Crissy Huitron PA PCP - General Physician Hospital Recruiter 03/30/20
--- OUTSIDE RECORDS SUMMARY | 2024-12-12 22:32 | XMS_ITS | Clinical Summary ---
Author Organization [facility] [employer] Address [address] [place] [address] Care Team Providers Care Glass Blowing Instructor Name Role Phone Unavailable Primary Care Provider Unavailabl e Source Comments [facility] [employer]non-owned Affiliates and Associated Physician Practices is amultiple site organization consisting of ambulatory clinics and hospital sitesin [place]. This disclosure is being madepursuant to the Care Everywhere program and may not contain all information available regarding this patient. Last updated 18.[facility] [employer] 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
[2024-12-12 22:36] LABS: Alanine Aminotransferase 76 U/L (6-35); Albumin Level 3.8 g/dL (3.5-5.1); Alkaline Phosphatase 103 U/L (38-126); Anion Gap 7 mmol/L (4-12); Aspartate Amino Transferase 66 U/L (14-36); Bilirubin,Total 0.3 mg/dL (0.2-1.3); Blood Urea Nitrogen 10 mg/dL (7-17); Carbon Dioxide 25 mmol/L (22-30); Chloride 103 mmol/L (98-107); Estimated CRCL calculation 82 ml/min; Estimated Glomerular Filt Rate > 60; Glucose 93 mg/dL (65-110); Lipase 56 U/L (23-300); Potassium 3.5 mmol/L (3.4-5.0); Sodium 135 mmol/L (137-145); Total Protein 7.2 g/dL (6.3-8.2)
--- NOTE | 2024-12-12 22:42 | ED_ITS ---
HPI - Abdominal Pain General Chief Complaint: Abdominal Pain Stated Complaint: abd pain Time Seen by Provider: 12/12/24 22:08 History of Present Illness HPI narrative: About 2 days ago, patient started having pain to her upper abdomen, it comes and goes, she has tried Pepto-Bismol, antacids, Pepcid, omeprazole, without relief. Seems worse when she eats, or lays flat, has never had symptoms like this before. No nausea vomiting. No history of abdominal surgeries. Normal BMs. Pain seems to be coming up to her epigastric abdomen and occasionally to back. No focal numbness or weakness. Related Data Home Medications ?Medication ?Instructions ?Recorded ?Confirmed ?Last Taken ?Type semaglutide (weight loss) 1 mg/0.5 0.5 mg subcut WEEKLY 09/08/24 09/08/24 09/06/24 History mL subcutaneous pen injector triamterene 37.5 1 tablet PO .QOD PRN DEPENDENT 09/08/24 09/19/24 09/18/24 History mg-hydrochlorothiazide 25 mg tablet EDEMA Allergies Allergy/AdvReac Type Severity Reaction Status Date / Time No Known Allergies Allergy Mild Verified 09/19/24 09:15 Review of Systems 2 Review of Systems: All systems reviewed & are unremarkable except as noted in HPI and below PMFSH Family History Family History Mother Family history of obesity Family history of heart disease in male family member before age 55 Sibling Family history of obesity Grandparent Family history of obesity Family history of multiple sclerosis Family history of renal failure Family history of heart disease in male family member before age 55 Diabetes mellitus Social History Social History Smoking status: Never smoker Alcohol intake: never Substance use: never Living arrangements: with family Exam 2 Narrative: EXAMINATION OF ORGAN SYSTEMS/BODY AREAS: Constitutional: Vital signs per nursing GENERAL:[No acute distress, non-toxic appearing.] HEAD: Normal with no signs of head trauma. EYES: EOMI, conjunctiva normal ENT: Hearing grossly intact LUNGS: Nonlabored breathing. HEART: [Regular rate and rhythm] ABD: [Soft], [nontender to palpation] EXT: Normal range of motion SKIN: [No rashes or lesions.] NEURO: [Alert and oriented x 3. No gross focal sensory or strength deficits.] PSYCH: Normal affect Course Vital Signs Vital signs: Vital Signs Temperature 98.6 F 12/12/24 21:37 Pulse Rate 88 12/12/24 21:37 Respiratory Rate 16 12/12/24 21:37 Blood Pressure 120/69 12/12/24 21:37 Pulse Oximetry 98 12/12/24 21:37 Oxygen Delivery Room Air 12/12/24 21:37 Temperature 98.6 F 12/12/24 21:37 Pulse Rate 83 12/13/24 01:21 Respiratory Rate 18 12/13/24 01:21 Blood Pressure 118/68 12/13/24 01:21 Pulse Oximetry 100 12/13/24 01:21 Oxygen Delivery Room Air 12/12/24 21:37 MDM - Abdominal Pain MDM Narrative Medical decision making narrative: Electronic medical record was reviewed. Patient presented to the ED with complaint of [abdominal pain]. Vitals [were within acceptable limits]. Physical exam revealed soft abdomen without significant tenderness. Based on the patient's history and physical exam, my differential includes but is not limited to [gastritis, gastroenteritis, cholecystitis, pancreatitis, appendicitis]. [IV access was established by nursing staff. Patient declined medications as she is currently asymptomatic]. Protonix ordered. Troponin was negative. EKG on my independent interpretation at 12:44 a.m. shows normal sinus rhythm rate 68, NJ 154, QRS 91, QTC 409, no ST elevations or depressions, though there are some flattened/inverted T-waves in lateral leads. CBC, BMP, lipase, LFTs, bilirubin and alk phos were obtained. Labs were pertinent for elevated white count. [Decision was made to obtain a CT-abdomen to evaluate for acute abdominal process. CT-abdomen per radiology interpretation showing likely enteritis.] On reevaluation, there were no witnessed episodes of vomiting in the emergency department. They are not complaining of any new abdominal pain. Repeat examination did not show any significant guarding or rebound. No new tenderness. At this time I do not feel there is any further emergent treatment to be provided. The patient was given strict return precautions, if they are to develop any worsening abdominal pain, vomiting, or blood in the vomit they are to return to the emergency department immediately. Patient verbally acknowledges understanding these directions. [The patient was informed of the above diagnostic test findings.]They will be discharged home [with prescriptions for Bentyl in addition to the Pepcid omeprazole she is taking at home already]. They were advised to follow-up with PCP and soa architect in 2 days. The patient feels that this is appropriate medical decision making and verbalizes an understanding of the discharge instructions. Lab Data 12/12/24 22:17 12/12/24 22:17 Labs: Lab Results 12/12/24 12/13/24 12/13/24 Range/Units 22:17 00:25 01:13 WBC 13.8 H (4.5-10.0) K/mm3 RBC 4.02 L (4.2-5.4) M/mm3 Hgb 11.7 L (12.0-15.0) g/dL Hct 35.0 L (37.0-47.0) % MCV 87.1 (80-100) fl MCH 29.1 (26-34) pg MCHC 33.4 (32-36) g/dl RDW 12.9 (11.5-14.5) % Plt Count 221 (150-375) k/mm3 MPV 10.5 H (7.4-10.4) fl Immature Gran % (Auto) 0.3 (0-0.5) % Neut % (Auto) 72.8 (45.5-73.1) % Lymph % (Auto) 18.0 L (18.3-44.2) % [place] % (Auto) 7.0 (2.6-8.5) % Eos % (Auto) 1.4 (0-4.4) % Baso % (Auto) 0.5 (0.2-1.2) % Lymph # (Auto) 2.48 (0.9-3.2) K/mm3 [place] # (Auto) 1.0 H (0.1-0.6) K/mm3 Eos # (Auto) 0.2 (0-0.3) K/mm3 Baso # (Auto) 0.1 (0.0-0.1) K/mm3 Abs Immat Gran (auto) 0.04 H (0.00-0.031) K/mm3 Absolute Neuts (auto) 10.0 H (1.3-6.7) K/mm3 Absolute Nucleated RBC 0.000 (0.0-0.012) K/mm3 Nucleated RBC % 0.0 (0.0-0.2) % Sodium 135 L (137-145) mmol/L Potassium 3.5 (3.4-5.0) mmol/L Chloride 103 (98-107) mmol/L Carbon Dioxide 25 (22-30) mmol/L Anion Gap 7 (4-12) mmol/L BUN 10 (7-17) mg/dL Creatinine 0.73 (0.7-1.0) mg/dL Estim Creat Clear Calc 82 ml/min Estimated GFR > 60 (59 - ) Glucose 93 (65-110) mg/dL Calcium 9.0 (8.4-10.2) mg/dL Total Bilirubin 0.3 (0.2-1.3) mg/dL AST 66 H (14-36) U/L ALT 76 H (6-35) U/L Alkaline Phosphatase 103 (38-126) U/L Troponin I < 0.012 (0.000-0.034) ng/mL Total Protein 7.2 (6.3-8.2) g/dL Albumin 3.8 (3.5-5.1) g/dL Lipase 56 (23-300) U/L Urine Color Yellow (Yellow) Urine Appearance Clear (Clear) Urine pH 7.5 (5.0-9.0) Ur Specific [place] 1.035 (1.001-1.035) Urine Protein Negative (Negative) mg/dL Urine Glucose (UA) Negative (Negative) mg/dL Urine Ketones Negative (Negative) mg/dL Ur Blood (Man) 2+ H (Negative) Urine Nitrate Negative (Negative) Urine Bilirubin Negative (Negative) Urine Urobilinogen 0.2 (<2.0) mg/dL Leukocyte Esterase Rfl Negative (Negative) MARK/UL Urine RBC 0-2 (0-2) /hpf Urine WBC 0-5 (0-3) /hpf Ur Squamous Epith Cells None seen (Few) /hpf Urine Bacteria None seen /hpf Urine Casts 0-2 POC Urine HCG, Qual Negative (Negative) Imaging Data Radiologist's impression: ITS Impressions Chest X-Ray 12/12/24 22:47 IMPRESSION: No acute cardiopulmonary pathology. Discharge Plan Discharge Clinical Impression: Abdominal pain Patient Disposition: Home Condition: Stable Instructions: Abdominal Pain (ED), Enteritis (ED) Additional Instructions: Please follow up with your doctor and the soa architect; try the medications as prescribed and continue with the Pepcid and omeprazole at home, you can always return for any further issues. Patient Language: Ukrainian Prescriptions: New dicyclomine 20 mg tablet 20 mg PO TID PRN (Reason: abdominal pain) Qty: 30 0RF No Action triamterene-hydrochlorothiazid 37.5-25 mg tablet 1 tablet PO .QOD PRN (Reason: DEPENDENT EDEMA) semaglutide (weight loss) 1 mg/0.5 mL pen injector 0.5 mg subcut WEEKLY Patient Comments: TAKES ON SUNDAY hydrocodone-acetaminophen 5-300 mg tablet 1 tablet PO Q4H PRN (Reason: pain) Qty: 14 0RF Follow-up/Referrals: Tomy,DIPAK Woodward [Primary Care Provider] - Robin Hernandez MD [Physician] - 2 Days
[2024-12-12 22:52] LABS: Troponin I < 0.012 ng/mL (0.000-0.034)
[2024-12-12] MEDS: PANTOPRAZOLE SODIUM IV 40 MG VIAL IV PUSH (22:59)
[2024-12-12] MEDS: ACETAMINOPHEN 500 MG TABLET 1000 MG PO (23:44)
[2024-12-13 00:36] LABS: Add Urine Microscopic? YES; Appearance Urine Clear (Clear); Bacteria Urine None Seen /hpf; Bilirubin Urine Negative (Negative); Blood Urine 2+ (Negative); Color Urine Yellow (Yellow); Glucose Urine UA Negative (Negative); Ketones Urine Negative (Negative); Leukocyte Esterase Ur Negative LEU/UL (Negative); Nitrate Urine Negative (Negative); Non Pathogenic Casts 0-2; Protein Urine Negative (Negative); RBC Urine 0-2 /hpf (0-2); Specific Grav Ur 1.035 (1.001-1.035); Squamous Epithelial Cell Urine None Seen /hpf (Few); Urobilinogen Urine 0.2 mg/dL (<2.0); WBC Urine 0-5 /hpf (0-3); pH Urine 7.5 (5.0-9.0)
[2024-12-13 01:15] LABS: BEDSIDEPREGUCG Negative (Negative)
[2024-12-13] MEDS: DICYCLOMINE HCL 10 MG CAPSULE 20 MG PO (01:16)
[2024-12-13 01:21] VITALS: BP 118/68; PULSE 83; RESP 18; O2SAT 100
== END 2024-12-13 01:22 | disposition home or self-care (01) ==
PROVIDERS: Emergency Provider Emergency Medicine; PCP Physician Assistant
DX: R10.13 Epigastric pain (principal); R94.31 Abnormal electrocardiogram [ECG] [EKG]
CPT/HCPCS: 36415; 71045; 74177; 80053; 81001; 81025; 83690; 84484; 85025; 93005; 96374; 99284; A9270; J2470; Q9967

== ENCOUNTER 2024-12-30 09:58 | Emergency (ER) | payer BC, SELFPAY ==
--- OUTSIDE RECORDS SUMMARY | 2024-12-30 10:07 | XMS_ITS | Referral Summary ---
Author Organization [facility] at [facility] Address [address] [place] [id number] Care Team Providers Care Gang Miner Name Role Phone GuillerminaCrissy wilkinson Caitlyn NIX Primary Care Pr ovider Encounters Date Type Department Care Team Description 10/31/2024 8:32 AM CDT - 10/31/2024 11:59 PM CDT Hospital Encounter [address] [address] Pre-employment health screening examination Discharge Disposition: Discharge to home or self care 10/31/2024 8:30 AM CDT Lab [facility] Outpatient Lab at [address] [id number] 10/29/2024 Orders Only [facility] Healthcare Occupatiuonal Health [address] [place] [address] Room 3420 (Third Floor) [place] [address] Omar Ansari MD Pre-employment health screening examination [...] on file Legal Sex Female 12:34 AM MANAGER CORPORATE STRATEGY Gender Identity Not on file Sexual Orientation Not on file Last Filed Vital Signs Vital Sign Reading Time Taken Comments Blood Pressure 105/59 06/25/2022 7:49 PM MANAGER CORPORATE STRATEGY Pulse 103 06/25/2022 7:49 PM MANAGER CORPORATE STRATEGY Temperature 36.8 C (98.3 F) 06/25/2022 7:49 PM MANAGER CORPORATE STRATEGY Respiratory Rate 18 06/25/2022 7:49 PM MANAGER CORPORATE STRATEGY Oxygen Saturation 98% 06/25/2022 7:49 PM MANAGER CORPORATE STRATEGY Inhaled Oxygen Concentration - - Weight 74.8 kg (165 lb) 06/25/2022 7:49 PM MANAGER CORPORATE STRATEGY Height 162.6 cm (5' 4) 10/23/2014 11:54 AM CDT Body Mass Index 28.32 10/23/2014 11:54 AM CDT Plan of Treatment Not on file Procedures Procedure Name Priority Date/Time Associated Diagnosis Comments VARICELLA ZOSTER ANTIBODY, IGG Routine 10/31/2024 8:32 AM CDT Pre-employment health screening examination THINPREP PAP Routine 08/12/2014 1:00 PM MANAGER CORPORATE STRATEGY from Last 3 Months or Most Recently Relevant to Health Maintenance Results * (ABNORMAL) Varicella Zoster IgG antibody Blood (10/31/2024 8:32 AM CDT) VZV IgG Nonreacti ve(A) Reactive Comment: Non-reactive: No detectable antibody to Varicella-zoster virus. Such individuals are presumed to be uninfected and to be susceptible to primary infection. Testing performed by: [facility], [address], [place]., [address] Blood 10/31/2024 8:32 AM CDT 11/01/2024 12:10 AM CDT Narrative ALDEN RICARDO - 11/01/2024 12:42 PM CDT Bill to [facility] - 1520. 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 Interpretation Negative for intraepithelial lesion or malignancy. 08/21/14 Burner Hand: LAKESHIA Hartman(ASCP) Reviewed by: JUANITO 08/22/14 Verified By: LAKESHIA Solomon(ASCP) electronic signature [facility], Department of Pathology For questions regarding this case, call ext. [phone] CPT Code(s) 29278 Clinical History LMP: [id number] : N : N IUD: N Hormone Therapy: N Postmenopausal: N Previous surgery date and type: N Hysterectomy: N Chemotherapy: N MAURICIO Exposure: N Radiation: N Previous Abnormal Pap? Details: N Diagnostic or Screening Pap Test: Screening Performed by [facility], [address] [place] [id number] [email or web address], Khurram Esparza MD - Lab. Director 08/12/2014 1:00 PM MANAGER CORPORATE STRATEGY 08/12/2014 4:07 PM MANAGER CORPORATE STRATEGY Jose A Wiggins MD LAB PATHOLOGY ORDERABLE S Final Result [facility] HISTORICAL RESULTS from Last 3 Months or Most Recently Relevant to Health Maintenance Insurance [employer] [place] [employer] [place] Care Teams Gang Miner Relationship Specialty Start Date End Date Crissy Huitron PA PCP - General Physician Perinatal Tech 03/30/20
--- OUTSIDE RECORDS SUMMARY | 2024-12-30 10:07 | XMS_ITS | Clinical Summary ---
Author Organization [facility] Address [address] [place] [address] Care Team Providers Care [employer] Name Role Phone Unavailable Primary Care Provider Unavailabl e Source Comments [facility],non-owned Affiliates and Associated Physician Practices is amultiple site organization consisting of ambulatory clinics and hospital sitesin [place], [place], [place] and [place]. This disclosure is being madepursuant to the Care Everywhere program and may not contain all information available regarding this patient. 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
--- OUTSIDE RECORDS SUMMARY | 2024-12-30 10:07 | XMS_ITS | Clinical Summary ---
Author Organization [facility] at the [facility] Address [address] [place] [address] Care Team Providers Care [employer]oe [employer] Caser Name Role Phone Guillerminaminh Cirssy NIX Primary Care Pr ovider Allergies No [...] - 10/31/2024 11:59 PM CDT Hospital Encounter [address] [address] Pre-employment health screening examination Discharge Disposition: Discharge to home or self care 10/31/2024 8:30 AM CDT Lab [facility] Outpatient Lab at [address] [address] 10/29/2024 Orders Only [facility] Occupatiuonal Health [address] [place] [address] Room 3420 (Third Floor) [place] [address] Omar Ansari MD Pre-employment health screening examination (Primary Dx) from Last 3 Months Social History Tobacco Use Types Packs/Day Years Used Date Smoking Tobacco: Never Assessed Comments Unknown Sex and Gender Information Value Date Recorded Sex Assigned at Not on file Legal Sex Female 12:34 AM COTTON BUYER Gender Identity Not on file Sexual Orientation Not on file Last Filed Vital Signs Vital Sign Reading Time Taken Comments Blood Pressure 105/59 06/25/2022 7:49 PM COTTON BUYER Pulse 103 06/25/2022 7:49 PM COTTON BUYER Temperature 36.8 C (98.3 F) 06/25/2022 7:49 PM COTTON BUYER Respiratory Rate 18 06/25/2022 7:49 PM COTTON BUYER Oxygen Saturation 98% 06/25/2022 7:49 PM COTTON BUYER Inhaled Oxygen Concentration - - Weight 74.8 kg (165 lb) 06/25/2022 7:49 PM COTTON BUYER Height 162.6 cm (5' 4) 10/23/2014 11:54 [...] examination THINPREP PAP Routine 08/12/2014 1:00 PM COTTON BUYER from Last 3 Months or Most Recently Relevant to Health Maintenance Results * (ABNORMAL) Varicella Zoster IgG antibody Blood (10/31/2024 8:32 AM CDT) Pathologist [facility] VZV IgG Nonreacti ve(A) Reactive Comment: Non-reactive: No detectable antibody to Varicella-zoster virus. Such individuals are presumed to be uninfected and to be susceptible to primary infection. Testing performed by: [facility], [address] [place] [address] Blood 10/31/2024 8:32 AM CDT 11/01/2024 12:10 AM CDT Clarissa RUANO CH - 11/01/2024 12:42 PM CDT Bill to [facility] - 1520. Patient is employed by/enrolled at:->[facility] Home Care Services Omar Ansari MD LAB MICROBIOLOGY - GENERAL OR DERABLES Final Result [facility] [address] [address] Department [place] [address] * ThinPrep Pap (08/12/2014 1:00 PM COTTON BUYER) Pathologist [facility] Thin Prep Pap Smear SEE BELOW () 08/22 10:47 AM COTTON BUYER [facility] HISTORICAL RESULTS Comment: [employer] Custodian ThinPrep Cytology Final Report ThinPrep Pap Specimen Source Cervix/Endocervix Specimen Adequacy Satisfactory for interpretation, endocervical cells (transformation zone) present. Interpretation Negative for intraepithelial lesion or malignancy. 08/21/14 Fitness Leader: Nani Yeager, LAKESHIA(ASCP) Reviewed by: JUANITO 08/22/14 Verified By: Petra Taveras, CT(ASCP) electronic signature [facility], Department of Pathology For questions regarding this case, call ext. [phone] CPT Code(s) 82630 Clinical History LMP: [id number] : N : N IUD: N Hormone Therapy: N Postmenopausal: N Previous surgery date and type: N Hysterectomy: N Chemotherapy: N MAURICIO Exposure: N Radiation: N Previous Abnormal Pap? Details: N Diagnostic or Screening Pap Test: Screening Performed by [facility], [address] [place] [id number] [email or web address], Khurram Esparza MD - Lab. Director 08/12/2014 1:00 PM COTTON BUYER 08/12/2014 4:07 PM COTTON BUYER Jose A Wiggins MD LAB PATHOLOGY ORDERABLE S Final Result [facility] HISTORICAL RESULTS from Last 3 Months or Most Recently Relevant to Health Maintenance Insurance [employer] [facility] [employer] [place] Care Teams Shoe Parts Caser Relationship Specialty Start Date End Date Crissy Huitron PA PCP - General Physician Vending Route Driver 03/30/20
--- OUTSIDE RECORDS SUMMARY | 2024-12-30 10:08 | XMS_ITS | Data Portability ---
Author Organization [facility] MEHRANLin GloverHatfield H Address [address] [facility] [place] [address] Care Team Providers Care Allied Health Teacher Name Role Phone DREW ALBRECHT Primary Care [...] 024 KIRSTIE [facility] [address], [place], [address], 4 09:34:31 lipid panel, serum 024 [email or web address] [facility] [address], [address], [place], [address], 5 10:00:36 CMP, serum or plasma 024 [email or web address] [facility] [address], [address], [place], [address], 5 10:00:36 CBC w/ auto diff 024 [email or web address] [facility] [address], [address], [place], [address], 5 10:00:36 vitamin B12 + folate, serum or blood 024 [email or web address] [facility], [address], [place], [address], 5 10:00:36 HbA1c (hemoglob in A1c), blood 024 [email or web address] [facility], [address], [place], [address], 5 10:00:36 insulin, serum 024 [email or web address] [facility], [address], [place], [address], 5 10:00:36 Referral None recorded. Procedures None recorded. Surgeries None recorded. Imaging None recorded. Medication Orders None recorded. Patient TargetsNo targets recorded. Patient Instructions Encounter Date Encounter Id Patient Instructions Last Modified By Organization Details Last Modified Time 05/21/2024 [id number] A healthy lifestyle: care instructions Not available 05/21/2024 16:03:52 Reason for Referral None Reported. Results Created Date Observation Date Name Description Value Unit Range Abnormal Flag Note LastModifiedBy Organization Detail LastModifiedTime 11/07/19 25 11/06/2024 MAMMO , scree basil, bilat eral No observ ation record ed. [email or web address] [facility] [address], [place], [address], 11/07/2024 13:18:51 12/05/19 25 12/04/2024 MAMMO , diagn ostic , unila teral No observ ation record ed. [facility] [address], [place], [address], 12/26/2024 15:29:24 12/14/19 25 12/12/2024 CT, abdom en + pelvi s, w/ contr ast No observ ation record ed. [email or web address] [facility] [address], [place], [address], 12/15/2024 13:57:30 Result Notes None recorded. Problems Name Problem SNOMED Code Status Onset Date Resolution Date Notes Provider Name and Address Organization Details Recorded Time Body mass index 30+ - obesity 278388528 Active 024 Rajesh Love MA [email or web address], [place] - [facility] 4 15:37:24 Swelling of bilateral lower limbs 141835193 Active 024 BOYD Reza Attn: Accountin g,[address] [facility], [place], [address], [facility] - [place] 4 18:29:54 Obesity 278252314 Active 024 BOYD Reza Attn: Accountin g,[address] [facility], [place], [address], [facility] - [place] 4 18:30:03 Long-term drug therapy Active 024 BOYD Reza Attn: Accountin g,[address] [facility], [place], [address], [facility] - [place] 4 18:30:14 Problem Notes None recorded. Procedures Surgical History Date Name Laterality Status Provider Name and Address Organization Details Recorded Time dilation and curettage completed Mehreen Vyas [facility] 10/07/2024 10:52:57 Imaging Results None recorded. Procedure [...] mm[Hg] 80 mm[Hg] BOYD Reza Attn: Accounting,[address] [facility], [place], [address], [facility] 05/21/2024 16:04:57 Date Recorded Body weight Body mass index (BMI) Body height Oxygen saturation Oxygen saturation in Arterial blood by Pulse oximetry Heart rate Respiratory rate Systolic blood pressure Diastolic blood pressure Provider Name and Address Organization Details Last Updated DateTime 06385.4 g 32.4 kg/m2 160.02 cm 100 % 100 % 79 /min 18 /min 130 mm[Hg] 82 mm[Hg] Rajesh Love MA [facility] 15:39:17 Social History Question Answer Notes LastModified by Organizat ion Details LastModified Time Tobacco Smoking Status Never Smoker Rajesh Love MA null, [facility] 05/21/2024 15:36:52 Do You Have An Advance [...] anxious, or unable to sleep at night)? [id number] Information not available 05/21/2024 Family History Nothing [...] PF 05/14/2024 completed Rajesh Love MA null, [place] - [facility] 05/21/2024 15:38:06 Influenza, split virus, quadrivalent, PF 05/22/2023 completed CARMEN Murrell, [place] - [facility] 05/21/2024 15:38:06 Past Encounters Encounter ID Performer Location Encounter Start Date Encounter Closed Date Diagnosis/Indication Diagnosis SNOMED-CT Code Diagnosis ICD10 Code Diagnosis Note [id number] Griffin Link MD [facility] [employer] [address] [place] [address] 05/21/2024 15:05:19 05/21/2024 16:10:08 Body mass index 30+ - obesity 233771379 Z68.32 BMI is 32.4 Obesity 964745350 E66.9 discussed healthy diet, exercise, controllin g carbohydra sanjana and added sugars in the diet Swelling o f bilateral lower limbs 679131561 M79.89 Patient takes her Maxzide low-dose for trace swelling over bilateral lower extremitie s 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 She does not have any swelling today and medication is still working effectivel y for her. Cholesterol screening 27 0127059 Z13.220 Fasting lipid panel is due Diabetes m ellitus screening 088028999 Z13.1 Annual diabetes screening is due Long-term drug therapy 427369269 Z79.891 cmp, cbc and b12, folate labs are due Thyroid di sorder screening 591079019 Z13.29 Thyroid function testing ordered for annual review Adult [facility] th examination 990869836 Z00.00 Annual wellness exam completed Health Concerns Section Related Observation LastModified by Organization Detai ls LastModified Time None Recorded Concern Status LastModified by Organization Details LastModified Time None Recorded Advance Directives Directive N: Payers Insurance Date Sequence Insurance Name Policy Number Policy Urena Covered Member ID Urena Member ID Guarantor Name 06/02/2024 1 [employer] [id number] [place] Svitlana [id number] Kaye Svitlana Notes Date Note Type Note Provider Name and Address Organization Details Recorded Time 05/21/2024 text/html Patient is here for routine annual wellness exam. 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 She is due for labs. BOYD Reza Attn: Accounting,[address] [place], [address], [place] - [facility] 06/01/2024 18:30:56 OBGyn Episode No OBEpisode recorded.
--- OUTSIDE RECORDS SUMMARY | 2024-12-30 10:08 | XMS_ITS | Data Portability ---
Author Organization [place] [facility] [employer], Main Office Address [address] [place] [address] Assessment Encounter Date Assessment Date Assessment LastModified by Organization Details LastModified Time 02/22/2023 02/22/2023 cologuard negative mar 2022 [email or web address] Not available 02/22/2023 11:41:16 Plan of Treatment Reminders Order Date Submit Date Provider Last Modified By Organization Details Last Modified Time Details Appointments None recorded. Lab lipid panel, serum 2022 023 [facility], [address], [place], [address], 4 17:09:55 C-reactive protein, quantitativ e, serum or plasma 2022 023 [employer] [facility], [address], [place], [address], 4 17:10:07 rf (rheumatoid factor), serum 2022 023 [employer], [address], [place], [address], 4 17:10:06 erythrocyte sedimentati on rate by westergren method 2022 023 [employer] [facility], [address], [place], [address], 4 17:10:00 uric acid, serum or plasma 2022 023 [employer] [facility], [address], [place], [address], 4 17:09:59 GENET (antinuclea r antibodies) screen, ifa, serum 2022 023 [employer] [facility], [address], [place], [address], 4 17:10:04 CBC w/ auto diff 2022 023 [employer] [facility], [address], [place], [address], 4 17:10:02 CMP, serum or plasma 2022 023 [employer] [facility], [address], [place], [address], 4 17:09:56 TSH + free T4, serum 2022 023 [employer] [facility], [address], [place], [address], 4 17:09:54 HbA1c (hemoglobin A1c), blood 2022 023 [employer] [facility], [address], [place], [address], 4 17:09:58 Referral None recorded. Procedures None [...] URINE , ROUTI NE Micro Numbe r: [id number] Test Statu s: Final Speci men [...] Cultu re Trans port Tube. Not Available [facility] [address] [address] [place], [address], 02/24/2022 02:14:41 02/23/2002/24/2022 INSUL IN insulin 14.9 [...] (dete mauro, gluli sine) . Not Available [facility] [address] [address] [place], [address], 02/24/2022 02:14:40 02/23/20 22 02/24/2022 REFLE XIVE URINE CULTU RE reflexive urine culture CULTU RE INDIC ATED - RESUL TS TO FOLLO W Not Available [facility] [address] [address] [place], [address], 02/24/2022 02:14:40 02/23/2002/24/2022 URINA LYSIS , COMPL ETE W/REF CELESTINE TO CULTU RE hyaline cast none seen /lpf none seen normal Not Available [facility] [address] [address] [place], [address], 02/24/2022 02:14:40 02/23/20 22 02/24/2022 URINA LYSIS , COMPL ETE W/REF CELESTINE TO CULTU RE color yellow yellow normal Not Available [address], [address], 02/24/2022 02:14:40 02/23/20 22 02/24/2022 URINA LYSIS , COMPL ETE W/REF CELESTINE TO CULTU RE appearance clear clear normal Not Available [address], [address], 02/24/2022 02:14:40 02/23/20 22 02/24/2022 URINA LYSIS , COMPL ETE W/REF CELESTINE TO CULTU RE specific gravity 1.023 1.001- 1.035 normal Not Available [address], [address], 02/24/2022 02:14:40 02/23/20 22 02/24/2022 URINA LYSIS , COMPL ETE W/REF CELESTINE TO CULTU RE pH 7.0 5.0-8. 0 normal Not Available [address], [address], 02/24/2022 02:14:40 02/23/20 22 02/24/2022 URINA LYSIS , COMPL ETE W/REF CELESTINE TO CULTU RE glucose negati ve negati ve normal Not Available [address], [address], 02/24/2022 02:14:40 02/23/20 22 02/24/2022 URINA LYSIS , COMPL ETE W/REF CELESTINE TO CULTU RE bilirubin negati ve negati ve normal Not Available [address], [address], 02/24/2022 02:14:40 02/23/20 22 02/24/2022 URINA LYSIS , COMPL ETE W/REF CELESTINE TO CULTU RE ketones negati ve negati ve normal Not Available [address], [address], 02/24/2022 02:14:40 02/23/20 22 02/24/2022 URINA LYSIS , COMPL ETE W/REF CELESTINE TO CULTU RE occult blood negati ve negati ve normal Not Available [address], [address], 02/24/2022 02:14:40 02/23/20 22 02/24/2022 URINA LYSIS , COMPL ETE W/REF CELESTINE TO CULTU RE protein negati ve negati ve normal Not Available [address], [address], 02/24/2022 02:14:40 02/23/20 22 02/24/2022 URINA LYSIS , COMPL ETE W/REF CELESTINE TO CULTU RE nitrite negati ve negati ve normal Not Available [address], [address], 02/24/2022 02:14:40 02/23/20 22 02/24/2022 URINA LYSIS , COMPL ETE W/REF CELESTINE TO CULTU RE leukocyte esterase 1+ negati ve abnormal Not Available [address], [address], 02/24/2022 02:14:40 02/23/20 22 02/24/2022 URINA LYSIS , COMPL ETE W/REF CELESTINE TO CULTU RE WBC 0-5 /hpf < or = 5 normal Not Available [address], [address], 02/24/2022 02:14:40 02/23/20 22 02/24/2022 URINA LYSIS , COMPL ETE W/REF CELESTINE TO CULTU RE RBC none seen /hpf < or = 2 normal Not Available [address], [address], 02/24/2022 02:14:40 02/23/20 22 02/24/2022 URINA LYSIS , COMPL ETE W/REF CELESTINE TO CULTU RE squamous epithelial cells 0-5 /hpf < or = 5 Not Available [address], [address], 02/24/2022 02:14:40 02/23/20 22 02/24/2022 URINA LYSIS , COMPL ETE W/REF CELESTINE TO CULTU RE bacteria none seen /hpf none seen normal Not Available [address], [address], 02/24/2022 02:14:40 02/23/20 22 02/24/2022 CBC (INCL UDES DIFF/ PLT) white blood cell count 7.5 thous and/u L 3.8-10 .8 normal Not Available [address], [address], 02/24/2022 02:14:39 02/23/20 22 02/24/2022 CBC (INCL UDES DIFF/ PLT) red blood cell count 4.23 jordyn on/uL 3.80-5 .10 normal Not Available [address], [address], 02/24/2022 02:14:39 02/23/20 22 02/24/2022 CBC (INCL UDES DIFF/ PLT) hemoglobin 11.8 g/dL 11.7-1 5.5 normal Not Available [address], [address], 02/24/2022 02:14:39 02/23/20 22 02/24/2022 CBC (INCL UDES DIFF/ PLT) hematocrit 37.2 % 35.0-4 5.0 normal Not Available [address], [address], 02/24/2022 02:14:39 02/23/20 22 02/24/2022 CBC (INCL UDES DIFF/ PLT) MCV 87.9 fL 80.0-1 00.0 normal Not Available [address], [address], 02/24/2022 02:14:39 02/23/20 22 02/24/2022 CBC (INCL UDES DIFF/ PLT) MCH 27.9 pg 27.0-3 3.0 normal Not Available [address], [address], 02/24/2022 02:14:39 02/23/20 22 02/24/2022 CBC (INCL UDES DIFF/ PLT) MCHC 31.7 g/dL 32.0-3 6.0 low Not Available [address], [address], 02/24/2022 02:14:39 02/23/20 22 02/24/2022 CBC (INCL UDES DIFF/ PLT) RDW 13.1 % 11.0-1 5.0 normal Not Available [address], [address], 02/24/2022 02:14:39 02/23/20 22 02/24/2022 CBC (INCL UDES DIFF/ PLT) platelet count 228 thous and/u L 140-40 0 normal Not Available [address], [address], 02/24/2022 02:14:39 02/23/20 22 02/24/2022 CBC (INCL UDES DIFF/ PLT) MPV 11.1 fL 7.5-12 .5 normal Not Available [address], [address], 02/24/2022 02:14:39 02/23/20 22 02/24/2022 CBC (INCL UDES DIFF/ PLT) absolute neutrophils 4485 cells /uL 1500-7 800 normal Not Available [address], [address], 02/24/2022 02:14:39 02/23/20 22 02/24/2022 CBC (INCL UDES DIFF/ PLT) absolute lymphocytes 2228 cells /uL 850-39 00 normal Not Available [address], [address], 02/24/2022 02:14:39 02/23/20 22 02/24/2022 CBC (INCL UDES DIFF/ PLT) absolute monocytes 450 cells /uL 200-95 0 normal Not Available [address], [address], 02/24/2022 02:14:39 02/23/20 22 02/24/2022 CBC (INCL UDES DIFF/ PLT) absolute eosinophils 278 cells /uL 15-500 normal Not Available [address], [address], 02/24/2022 02:14:39 02/23/20 22 02/24/2022 CBC (INCL UDES DIFF/ PLT) absolute basophils 60 cells /uL 0-200 normal Not Available [address], [address], 02/24/2022 02:14:39 02/23/20 22 02/24/2022 CBC (INCL UDES DIFF/ PLT) neutrophils 59.8 % normal Not Available [address], [address], 02/24/2022 02:14:39 02/23/20 22 02/24/2022 CBC (INCL UDES DIFF/ PLT) lymphocytes 29.7 % normal Not Available [address], [address], 02/24/2022 02:14:39 02/23/20 22 02/24/2022 CBC (INCL UDES DIFF/ PLT) monocytes 6.0 % normal Not Available [facility] [address] [address] [place], [address], 02/24/2022 02:14:39 02/23/20 22 02/24/2022 CBC (INCL UDES DIFF/ PLT) eosinophils 3.7 % normal Not Available [facility] [address] [address] [place], [address], 02/24/2022 02:14:39 02/23/20 22 02/24/2022 CBC (INCL UDES DIFF/ PLT) basophils 0.8 % normal Not Available [facility] [address] [address] [place], [address], 02/24/2022 02:14:39 02/23/20 22 02/24/2022 HEMOG LOBIN [...] nt diabe tic patie nts. Diffe rent ri cs may apply to speci fic patie nt popul ation s. [facility] Di[place] sanjana(A DA). Not Available [facility] [address] [address] [place], [address], 02/24/2022 02:14:39 02/23/20 22 02/24/2022 COMPR EHENS YANELY METAB OLIC PANEL glucose 96 mg/dL 65-99 normal Fasti ng refer ence inter jordon Not Available [address], [address], 02/24/2022 02:14:38 02/23/20 22 02/24/2022 COMPR EHENS YANELY METAB OLIC PANEL urea nitrogen (BUN) 14 mg/dL 7-25 normal Not Available [address], [address], 02/24/2022 02:14:38 02/23/20 22 02/24/2022 COMPR EHENS YANELY METAB OLIC PANEL creatinine 0.75 mg/dL 0.50-0 .99 normal Not Available [address], [address], 02/24/2022 02:14:38 02/23/20 22 02/24/2022 COMPR EHENS [...] kdoqi /gfr% 5Fcal culat or Not Available [address], [address], 02/24/2022 02:14:38 02/23/20 22 02/24/2022 COMPR EHENS YANELY METAB OLIC PANEL BUN/creatini ne ratio not applic able (calc ) 6-22 Not Available [address], [address], 02/24/2022 02:14:38 02/23/20 22 02/24/2022 COMPR EHENS YANELY METAB OLIC PANEL sodium 138 mmol/ L 135-14 6 normal Not Available [facility] [address], [address], 02/24/2022 02:14:38 02/23/20 22 02/24/2022 COMPR EHENS YANELY METAB OLIC PANEL potassium 3.9 mmol/ L 3.5-5. 3 normal Not Available [address], [address], 02/24/2022 02:14:38 02/23/20 22 02/24/2022 COMPR EHENS YANELY METAB OLIC PANEL chloride 104 mmol/ L 98-110 normal Not Available [address], [address], 02/24/2022 02:14:38 02/23/20 22 02/24/2022 COMPR EHENS YANELY METAB OLIC PANEL carbon dioxide 31 mmol/ L 20-32 normal Not Available [address], [address], 02/24/2022 02:14:38 02/23/20 22 02/24/2022 COMPR EHENS YANELY METAB OLIC PANEL calcium 8.9 mg/dL 8.6-10 .2 normal Not Available [address], [address], 02/24/2022 02:14:38 02/23/20 22 02/24/2022 COMPR EHENS YANELY METAB OLIC PANEL protein, total 6.1 g/dL 6.1-8. 1 normal Not Available [address], [address], 02/24/2022 02:14:38 02/23/20 22 02/24/2022 COMPR EHENS YANELY METAB OLIC PANEL albumin 3.7 g/dL 3.6-5. 1 normal Not Available [address], [address], 02/24/2022 02:14:38 02/23/20 22 02/24/2022 COMPR EHENS YANELY METAB OLIC PANEL globulin 2.4 g/dL_ (calc ) 1.9-3. 7 normal Not Available [address], [address], 02/24/2022 02:14:38 02/23/20 22 02/24/2022 COMPR EHENS YANELY METAB OLIC PANEL albumin/glob ulin ratio 1.5 (calc ) 1.0-2. 5 normal Not Available [address], [address], 02/24/2022 02:14:38 02/23/20 22 02/24/2022 COMPR EHENS YANELY METAB OLIC PANEL bilirubin, total 0.4 mg/dL 0.2-1. 2 normal Not Available [address], [address], 02/24/2022 02:14:38 02/23/20 22 02/24/2022 COMPR EHENS YANELY METAB OLIC PANEL alkaline phosphatase 79 U/L 31-125 normal Not Available [address], [address], 02/24/2022 02:14:38 02/23/20 22 02/24/2022 COMPR EHENS YANELY METAB OLIC PANEL AST 13 U/L 10-35 normal Not Available [address], [address], 02/24/2022 02:14:38 02/23/20 22 02/24/2022 COMPR EHENS YANELY METAB OLIC PANEL ALT 13 U/L 6-29 normal Not Available [address], [address], 02/24/2022 02:14:38 02/23/20 22 02/24/2022 LIPID PANEL WITH RATIO S cholesterol, total 155 mg/dL <200 normal Not Available [address], [address], 02/24/2022 02:14:38 02/23/20 22 02/24/2022 LIPID PANEL WITH RATIO S HDL cholesterol 45 mg/dL > or = 50 low Not Available [facility] [address] [place] [address], [address], 02/24/2022 02:14:38 02/23/20 22 02/24/2022 LIPID PANEL WITH RATIO S triglyceride s 212 mg/dL <150 high If a non-f astin g speci men was colle cted, consi beth repea t trigl yceri de testi ng on a fasti ng speci men if clini flora indic ated. Carlos gatica et al. J. of Clin. Lipid ol. 2015; 9:129 -169. Not Available [address], [address], 02/24/2022 02:14:38 02/23/20 22 02/24/2022 LIPID PANEL [...] calcu lated using the Nati n-Hop kins katheu sparkle n, which is a valid ated novel franciscao leif adams accur acy than the Fried lesli equat ion in the estim ation of LDL-C . Nati sherwood SS et al. SRI. 2013; 310(1 9): 2061- 2068 (http ://ed ucati on.Qu Sonia Chatalog. com/f aq/FA Q164) Not Available [facility] [address] [address], [place], [address], 02/24/2022 02:14:38 02/23/20 22 02/24/2022 LIPID PANEL WITH RATIO S chol/HDLC ratio 3.4 (calc ) <5.0 normal Not Available [facility] [place] [address] [place], [address], 02/24/2022 02:14:38 02/23/2002/24/2022 LIPID PANEL WITH RATIO S LDL/HDL ratio 1.8 (calc ) Below avera ge Risk: <2.34 [place] ge Risk: 2.35- 4.12 Moder ate Risk: 4.13- 5.56 High Risk: >5.57 Not Available [facility] [address] [address], [place], [address], 02/24/2022 02:14:38 02/23/2002/24/2022 LIPID PANEL WITH RATIO S non HDL cholesterol 110 mg/dL _(ravi c) <130 normal For patie nts with diabe sanjana plus 1 major ASCVD risk facto r, treat ing to a non-H DL-C goal of <100 mg/dL (LDL- C of <70 mg/dL ) is yaya boone c optio n. Not Available [facility] [address] [address] , [place], [address], 02/24/2022 02:14:38 02/23/2002/24/2022 TSH+F REE T4 TSH 3.37 mIU/L normal Refer ence Range > or = 20 Years 0.40- 4.50 Pregn saira Range s First trime ster 0.26- 2.66 Secon d trime ster 0.55- 2.73 Third trime ster 0.43- 2.91 Not Available [facility] [address] [address], [place], [address], 02/24/2022 02:14:37 02/23/2002/24/2022 TSH+F REE T4 T4, free 1.1 NG/dL 0.8-1. 8 normal Not Available [facility] [address] [place], [address], 02/24/2022 02:14:37 03/15/2003/15/2022 COLOG UARD cologuard result reportable negati ve negati ve NEGAT YANELY TEST RESUL T. A negat yanely Colog uard resul t indic ates a low likel ihood that a color ectal cance r (CRC) or advan marilin adeno ma (george omato us polyp s with more advan marilin pre-m align ant featu res) is prese nt. The [facility] e that a perso n with a negat yanely Colog uard test has a color ectal cance r is less than 1 in 1500 (nega tive predi ctive value >99.9 %) or has an advan marilin adeno ma is less than 5.3% (nega tive predi ctive value 94.7% ). These data are based on a prosp ectiv e cross -sect ional study of ,00 0 indiv idual s at [place] risk for color ectal cance r who were scree gerald with both Colog uard and colon oscop y. (Lela Little et al, N Engl J Med 2014; 370(1 4):12 86-12 97) The amanda l value (refe rence range ) for this assay is negat yanely. COLOG UARD RE-SC REEJANENE SMITH RECOM MENDA TION: Perio dic color ectal cance r scree basil is an impor tant part of preve ntive healt hcare for asymp tomat ic indiv idual s at [place] ge risk for color ectal cance r. [...] ectal Cance r Scree basil: https ://sam w.can cer.o rg/ca ncer/ colon -rect al-ca ncer/ detec tion- diagn osis- stagi ng/ac s-rec ommen datio ns.isaura ml.; Brando QUINONES, Hunter TURPIN, Srinivas DUNLAP, Color ectal Cance r Scree basil: Recom menda tions for Physi cians and Patie nts from the [place]. Multi -Soci ety Task Force on Color ectal Cance r Scree Carmel gracia y 2017; 112:1 016-1 030. TEST DESCR IPTIO N: [place] site algor ithmi c viral sis of [...] years or older , who are at [facility] for color ectal cance r (CRC) . Colog uard has been appro brianna for use by the U.[place]. FDA. The perfo rmanc e of Colog uard was estab lishe d in a cross secti onal study of [facility] adult s aged 50-84 . Colog uard perfo rmanc e in patie nts ages 45 to 49 years was estim ated by sub-g roup viral sis of near- age group s. Colon oscop ies perfo rmed for a posit yanely resul t may find as the most clini flora signi bessie t lesio n: color ectal cance r [...] of 10,00 0 indiv idual s at [facility] risk for color ectal cance r who [...] uard perfo rmanc e data in a 10,00 0 patie nt pivot al study using colon oscop y as the refer ence metho d can be acces sed at the follo wing locat ion: www.e xactl abs.c om/re sultimothy . Addit ional descr iptio n of the Colog uard test proce ss, warni ngs and preca ution s can be found at www.c ologu day.c om. Not Available [facility] (Cologuard Orders Only) [address], [place], [address], 03/18/2022 02:20:33 07/20/19 24 07/23/2023 TSH+F REE T4 TSH 2.35 mIU/L normal Refer ence Range > or = 20 Years 0.40- 4.50 Pregn saira Range s First trime ster 0.26- 2.66 Secon d trime ster 0.55- 2.73 Third trime ster 0.43- 2.91 Not Available [facility] [address] [address] [place], [address], 07/23/2023 17:09:54 07/20/19 24 07/23/2023 TSH+F REE T4 T4, free 1.0 NG/dL 0.8-1. 8 normal Not Available [employer] [facility] [address] [place], [address], 07/23/2023 17:09:54 07/20/19 24 07/23/2023 LIPID PANEL WITH RATIO S cholesterol, total 203 mg/dL <200 high Not Available [facility] [address] [address] [place], [address], 07/23/2023 17:09:55 07/20/19 24 07/23/2023 LIPID PANEL WITH RATIO S HDL cholesterol 48 mg/dL > or = 50 low Not Available [facility] [address] [place], [address], 07/23/2023 17:09:55 07/20/19 24 07/23/2023 LIPID PANEL WITH RATIO S triglyceride s 188 mg/dL <150 high Not Available [facility] [address] [address] [place], [address], 07/23/2023 17:09:55 07/20/19 24 07/23/2023 LIPID PANEL WITH RATIO S LDL-choleste rol 125 mg/dL _(ravi c) high Refer ence range : <100 Олег able range <100 mg/dL for prima ry preve ntion ; <70 mg/dL for patie nts with CHD or diabe tic patie nts with > or = 2 CHD risk facto rs. LDL-C is now calcu lated using the Nati sherwood-[facility] ashkan villagran n, which is a valid ated novel lila adams accur acy than the Fried lesli equat ion in the estim ation of LDL-C . Nati sherwood SS et al. SRI. 2013; 310(1 9): 2061- 2068 (http ://ed ucati on.Qu Sonia nichols tics. com/f aq/FA Q164) Not Available [facility] [address] [place], [address], 07/23/2023 17:09:55 07/20/19 24 07/23/2023 LIPID PANEL WITH RATIO S chol/HDLC ratio 4.2 (calc ) <5.0 normal Not Available [facility] [address] [place], [address], 07/23/2023 17:09:55 07/20/19 24 07/23/2023 LIPID PANEL WITH RATIO S LDL/HDL ratio 2.6 (calc ) Below avera ge Risk: <2.34 [place] ge Risk: 2.35- 4.12 Moder ate Risk: 4.13- 5.56 High Risk: >5.57 Not Available [address] [address] [place], [address], 07/23/2023 17:09:55 07/20/19 24 07/23/2023 LIPID PANEL WITH RATIO S non HDL cholesterol 155 mg/dL _(ravi c) <130 high For patie nts with diabe sanjana plus 1 major ASCVD risk facto r, treat ing to a non-H DL-C goal of <100 mg/dL (LDL- C of <70 mg/dL ) is yaya boone c optio n. Not Available [address] [address] [place], [address], 07/23/2023 17:09:55 07/20/19 24 07/23/2023 COMPR EHENS YANELY METAB OLIC PANEL glucose 89 mg/dL 65-99 normal Fasti ng refer ence inter jordon Not Available [address], [address], 07/23/2023 17:09:56 07/20/19 24 07/23/2023 COMPR EHENS YANELY METAB OLIC PANEL urea nitrogen (BUN) 17 mg/dL 7-25 normal Not Available [address], [address], 07/23/2023 17:09:56 07/20/19 24 07/23/2023 COMPR EHENS YANELY METAB OLIC PANEL creatinine 0.74 mg/dL 0.50-0 .99 normal Not Available [address] [address] [place], [address], 07/23/2023 17:09:56 07/20/19 24 07/23/2023 COMPR EHENS YANELY METAB OLIC PANEL eGFR 101 mL/mi n/1.7 3m2 > or = 60 normal Not Available [address], [address], 07/23/2023 17:09:56 07/20/19 24 07/23/2023 COMPR EHENS YANELY METAB OLIC PANEL BUN/creatini ne ratio SEE NOTE: (calc ) 6-22 Not Repor junie: BUN and Creat inine are withi n refer ence range . Not Available [address], [address], 07/23/2023 17:09:56 07/20/19 24 07/23/2023 COMPR EHENS YANELY METAB OLIC PANEL sodium 137 mmol/ L 135-14 6 normal Not Available [address], [address], 07/23/2023 17:09:56 07/20/19 24 07/23/2023 COMPR EHENS YANELY METAB OLIC PANEL potassium 3.9 mmol/ L 3.5-5. 3 normal Not Available [address], [address], 07/23/2023 17:09:56 07/20/19 24 07/23/2023 COMPR EHENS YANELY METAB OLIC PANEL chloride 104 mmol/ L 98-110 normal Not Available [address], [address], 07/23/2023 17:09:56 07/20/19 24 07/23/2023 COMPR EHENS YANELY METAB OLIC PANEL carbon dioxide 28 mmol/ L 20-32 normal Not Available [address], [address], 07/23/2023 17:09:56 07/20/19 24 07/23/2023 COMPR EHENS YANELY METAB OLIC PANEL calcium 8.9 mg/dL 8.6-10 .2 normal Not Available [address], [address], 07/23/2023 17:09:56 07/20/19 24 07/23/2023 COMPR EHENS YANELY METAB OLIC PANEL protein, total 6.6 g/dL 6.1-8. 1 normal Not Available [address] [address] [place], [address], 07/23/2023 17:09:56 07/20/19 24 07/23/2023 COMPR EHENS YANELY METAB OLIC PANEL albumin 4.0 g/dL 3.6-5. 1 normal Not Available [address], [address], 07/23/2023 17:09:56 07/20/19 24 07/23/2023 COMPR EHENS YANELY METAB OLIC PANEL globulin 2.6 g/dL_ (calc ) 1.9-3. 7 normal Not Available [address], [address], 07/23/2023 17:09:56 07/20/19 24 07/23/2023 COMPR EHENS YANELY METAB OLIC PANEL albumin/glob ulin ratio 1.5 (calc ) 1.0-2. 5 normal Not Available [address], [address], 07/23/2023 17:09:56 07/20/19 24 07/23/2023 COMPR EHENS YANELY METAB OLIC PANEL bilirubin, total 0.4 mg/dL 0.2-1. 2 normal Not Available [address], [address], 07/23/2023 17:09:56 07/20/19 24 07/23/2023 COMPR EHENS YANELY METAB OLIC PANEL alkaline phosphatase 73 U/L 31-125 normal Not Available [address] [address] [place], [address], 07/23/2023 17:09:56 07/20/19 24 07/23/2023 COMPR EHENS YANELY METAB OLIC PANEL AST 13 U/L 10-35 normal Not Available [facility] [address] [place], [address], 07/23/2023 17:09:56 07/20/19 24 07/23/2023 COMPR EHENS YANELY METAB OLIC PANEL ALT 16 U/L 6-29 normal Not Available [facility] [address] [place], [address], 07/23/2023 17:09:56 07/20/19 24 07/23/2023 HEMOG LOBIN [...] on Abbot t platf orm. Not Available [facility] [address] [place], [address], 07/23/2023 17:09:58 07/20/19 24 07/23/2023 URIC ACID uric acid 4.0 mg/dL 2.5-7. 0 normal Thera peutjohn landis t for gout patie nts: <6.0 mg/dL Not Available [address], [address], 07/23/2023 17:09:59 07/20/19 24 07/23/2023 SED RATE BY MODIF IED WESTE RGREN sed rate by modified westergren 11 mm/h < or = 20 normal Not Available [address], [address], 07/23/2023 17:10:00 07/20/19 24 07/23/2023 CBC (INCL UDES DIFF/ PLT) white blood cell count 5.8 thous and/u L 3.8-10 .8 normal Not Available [address], [address], 07/23/2023 17:10:02 07/20/19 24 07/23/2023 CBC (INCL UDES DIFF/ PLT) red blood cell count 4.29 jordyn on/uL 3.80-5 .10 normal Not Available [address], [address], 07/23/2023 17:10:02 07/20/19 24 07/23/2023 CBC (INCL UDES DIFF/ PLT) hemoglobin 12.5 g/dL 11.7-1 5.5 normal Not Available [address], [address], 07/23/2023 17:10:02 07/20/19 24 07/23/2023 CBC (INCL UDES DIFF/ PLT) hematocrit 38.6 % 35.0-4 5.0 normal Not Available [address], [address], 07/23/2023 17:10:02 07/20/19 24 07/23/2023 CBC (INCL UDES DIFF/ PLT) MCV 90.0 fL 80.0-1 00.0 normal Not Available [address], [address], 07/23/2023 17:10:02 07/20/19 24 07/23/2023 CBC (INCL UDES DIFF/ PLT) MCH 29.1 pg 27.0-3 3.0 normal Not Available [address], [address], 07/23/2023 17:10:02 07/20/19 24 07/23/2023 CBC (INCL UDES DIFF/ PLT) MCHC 32.4 g/dL 32.0-3 6.0 normal Not Available [address], [address], 07/23/2023 17:10:02 07/20/19 24 07/23/2023 CBC (INCL UDES DIFF/ PLT) RDW 12.5 % 11.0-1 5.0 normal Not Available [address], [address], 07/23/2023 17:10:02 07/20/19 24 07/23/2023 CBC (INCL UDES DIFF/ PLT) platelet count 240 thous and/u L 140-40 0 normal Not Available [address], [address], 07/23/2023 17:10:02 07/20/19 24 07/23/2023 CBC (INCL UDES DIFF/ PLT) MPV 11.3 fL 7.5-12 .5 normal Not Available [address], [address], 07/23/2023 17:10:02 07/20/19 24 07/23/2023 CBC (INCL UDES DIFF/ PLT) absolute neutrophils 2941 cells /uL 1500-7 800 normal Not Available [address], [address], 07/23/2023 17:10:02 07/20/19 24 07/23/2023 CBC (INCL UDES DIFF/ PLT) absolute lymphocytes 2227 cells /uL 850-39 00 normal Not Available [address], [address], 07/23/2023 17:10:02 07/20/19 24 07/23/2023 CBC (INCL UDES DIFF/ PLT) absolute monocytes 360 cells /uL 200-95 0 normal Not Available [address] [place], [address], 07/23/2023 17:10:02 07/20/19 24 07/23/2023 CBC (INCL UDES DIFF/ PLT) absolute eosinophils 191 cells /uL 15-500 normal Not Available [address], [address], 07/23/2023 17:10:02 07/20/19 24 07/23/2023 CBC (INCL UDES DIFF/ PLT) absolute basophils 81 cells /uL 0-200 normal Not Available [facility] [address], [address], 07/23/2023 17:10:02 07/20/19 24 07/23/2023 CBC (INCL UDES DIFF/ PLT) neutrophils 50.7 % normal Not Available [address], [address], 07/23/2023 17:10:02 07/20/19 24 07/23/2023 CBC (INCL UDES DIFF/ PLT) lymphocytes 38.4 % normal Not Available [facility] [address], [address], 07/23/2023 17:10:02 07/20/19 24 07/23/2023 CBC (INCL UDES DIFF/ PLT) monocytes 6.2 % normal Not Available [address], [address], 07/23/2023 17:10:02 07/20/19 24 07/23/2023 CBC (INCL UDES DIFF/ PLT) eosinophils 3.3 % normal Not Available [address], [address], 07/23/2023 17:10:02 07/20/19 24 07/23/2023 CBC (INCL UDES DIFF/ PLT) basophils 1.4 % normal Not Available [address], [address], 07/23/2023 17:10:02 07/20/19 24 07/23/2023 VITAM IN B12/F OLATE , SERUM PANEL vitamin B12 535 pg/mL 200-11 00 normal Not Available [address], [address], 07/23/2023 17:10:04 07/20/19 24 07/23/2023 VITAM IN B12/F OLATE , SERUM PANEL folate, serum >24.0 NG/mL normal Refer ence Range Low: <3.4 Borde rline : 3.4-5 .4 Amanda l: >5.4 Not Available [address], [address], 07/23/2023 17:10:04 07/20/19 24 07/23/2023 GENET SCREE N, IFA, W/REF L TITER AND PATVENKATA RN GENET screen, ifa NEGATI VE negati [...] Li rns (http s://d oi.or g/10. 1515/ [facility] 0052) For addit ional infor eliezer pascal e refer to http: //[facility].Que stDia gnost ics.c om/fa q/FAQ 177 (This link is being provi ded for infor matio nal/ educa raymundo l purpo ses only. ) Not Available [employer] [address] [address] [place], [address], 07/23/2023 17:10:04 07/20/19 24 07/23/2023 RHEUM ATOID FACTO R rheumatoid factor <14 IU/mL <14 normal Not Available [employer] [address] [address] [place], [address], 07/23/2023 17:10:05 07/20/19 24 07/23/2023 C-ALLIE CTIVE PROTE IN C-reactive protein 1.0 mg/L <8.0 normal Not Available [address] [address] [place], [address], 07/23/2023 17:10:07 07/20/19 24 07/23/2023 INSUL IN insulin 13.4 uIU/m L normal Refer ence Range < or = 18.4 Risk: Optim al < or = 18.4 Moder ate NA High >18.4 Adult cardi ovasc ular event risk categ ory cut point s (opti mal, moder ate, high) are based on Insul in Refer ence Inter jordon studi es perfo rmed at [facility] in 2021. Not Available [employer] [address] [address] [place], [address], 07/23/2023 17:10:08 07/20/19 24 07/23/2023 VITAM IN B6, PLASM A vitamin B6, plasma 24.0 NG/mL 2.1-21 .7 high (Note ) VITAM IN SUPPL EMENT ATION WITHI N 24 HOURS PRIOR TO BLOOD DRAW MAY AFFEC T THE ACCUR ACY OF RESUL TS. THIS TEST WAS DEVEL OPED AND ITS VIRAL TICAL PERFO RMANC E EROS CTERI STICS HAVE BEEN DETER MINED BY [facility]. IT HAS NOT BEEN CLEAR ED OR APPRO BRIANNA BY THE FDA. THIS ASSAY HAS BEEN VALID ATED PURSU ANT TO THE CLIA REGUL ATION S AND IS USED FOR CLINI RAVI PURPO SES. MDF med fusio n [address] [facility] [address] [place] [address] [phone] Santiago hurley MD Not Available [employer] [facility] [address] [address], [place], [address], 07/23/2023 17:10:09 06/29/20 22 06/25/2022 imagi ng/di agnos tic resul t No observ ation record ed. [id number] [facility] [address] [place], [address], 08/30/2022 20:22:35 08/04/19 23 08/04/2022 MAMMO , scree basil, digit al, bilat eral No observ ation record ed. [id number] Not Available 08/30/2022 20:22:35 02/24/20 23 02/22/2023 XR, foot, 3 or more view No observ ation record ed. [email or web address] [address], [place], [address], 07/03/2023 16:15:28 Result Notes None recorded. Problems Name Problem SNOMED Code Status Onset Date Resolution Date Notes Provider Name and Address Organization Details Recorded Time Pain in upper limb 555377593 Active 2021 Not Available [facility] 3 20:21:17 Edema of lower extremity 883369229 Active 2021 Not Available [employer] 3 20:21:17 Cervical radiculiti s 73889309 Active 2021 Not Available [facility] 3 20:21:17 Herpes labialis 8033389 Active 2021 Not Available [facility] 3 20:21:17 Long-term drug therapy Active 2021 Not Available [facility] 3 20:21:17 Mixed hyperlipid emia 792208502 Active 2019 Not Available [facility] 3 20:21:17 Heart murmur 37006769 Active 2021 Not Available [facility] 3 20:21:17 Weight gain 2293644 Active 2022 BOYD Reza [address], [place], [address] , [employer] 3 13:00:29 Mitral valve regurgitat ion 81016512 Active 2022 BOYD Reza [address], [place], [address] , [facility] 3 11:41:49 Tricuspid valve regurgitat ion 733918709 Active 2022 BOYD Reza [address], [place], [address] , [facility] 3 11:42:03 Pain of multiple joints 75240692 Active 2022 BOYD Reza [address], [place], [address] , [facility] 3 12:04:34 Pain in both feet 9496779958995 9102 Active 2022 BOYD Reza [address], [place], [address] , [facility] 3 12:05:20 Notes:05/2020-COVID Pos Problem Notes None recorded. Procedures Surgical History Date Name Laterality Status Provider Name and Address Organization Details Recorded Time Incision of foot fascia completed Not Available [facility] 08/30/2022 20:20:26 Imaging Results None [...] % 78 /min 16 /min 97.7 [degF] 78805.3 3 g 120 mm[Hg] 80 mm[Hg] Not Available [facility] 3 20:20:50 Date Recorded Body mass index (BMI) Heart rate Body height Oxygen saturation Oxygen saturation in Arterial blood by Pulse oximetry Respiratory rate Body temperature Body weight Systolic blood pressure Diastolic blood pressure Provider Name and Address Organization Details Last Updated DateTime 2 35.4 kg/m2 92 /min 162.56 cm 98 % 98 % 16 /min 98.1 [degF] 23072.3 9 g 120 mm[Hg] 66 mm[Hg] Not Available [facility] 3 20:20:50 Date Recorded Body height Body temperature Body mass index (BMI) Body weight Respiratory rate Oxygen saturation Oxygen saturation in Arterial blood by Pulse oximetry Heart rate Systolic blood pressure Diastolic blood pressure Provider Name and Address Organization Details Last Updated DateTime 3 162.56 cm 98.3 [degF] 28.2 kg/m2 09014.1 5 g 16 /min 98 % 98 % 93 /min 118 mm[Hg] 72 mm[Hg] NIDHI Reyna [place] [employer] [facility] 3 11:38:20 Date Recorded Body mass index (BMI) Body height Oxygen saturation Oxygen saturation in Arterial blood by Pulse oximetry Heart rate Body temperature Body weight Systolic blood pressure Diastolic blood pressure Provider Name and Address Organization Details Last Updated DateTime 1 35.1 kg/m2 162.56 cm 98 % 98 % 90 /min 98.2 [degF] 80169.6 4 g 122 mm[Hg] 80 mm[Hg] Not Available [facility] 3 20:20:50 Social History Question Answer Notes LastModified by Organizat ion Details LastModified Time Tobacco Smoking Status Never Smoker Not Available [facility] 08/30/2022 20:20:17 Do You Have An Advance Directive? No [id number] Information not available 08/30/2022 Do You Wear A Helmet When Biking? Yes MIGRATION.[id number] 6577 Information not available 08/30/2022 What Is Your Level Of Caffeine Consumption? Heavy MIGRATION.103064 6018 Information not available 08/30/2022 How Much Tobacco Do You Chew? None MIGRATION.[id number] 6804 Information not available 08/30/2022 In The 14 Days Before Symptom Onset, Have You Had Close Contact With A Laboratory-confir med COVID-19 While That Case Was Ill? No MIGRATION.[id number] 4920 Information not available 08/30/2022 In The 14 Days Before Symptom Onset, Have You Had Close Contact With A Person Who Is Under Investigation For COVID-19 While That Person Was Ill? No MIGRATION.888995 0435 Information not available 08/30/2022 What Type Of Diet Are You Following? REGULAR MIGRATION.715497 5330 Information not available 08/30/2022 Which Illicit Or Recreational Drugs Have You Used? None MIGRATION.722818 6272 Information not available 08/30/2022 What Is The Highest Grade Or Level Of School You Have Completed Or The Highest Degree You Have Received? [id number] MIGRATION.132684 4955 Information not available 08/30/2022 Have There Been Any Changes To Your Family Or Social Situation? No MIGRATION.763852 8469 Information not available 08/30/2022 What Is The Fluoride Status Of Your Home? Unknown MIGRATION.141285 9014 Information not available 08/30/2022 Do You Use Insect Repellent Routinely? No MIGRATION.139704 5704 Information not available 08/30/2022 Where Do You Live? [facility] MIGRATION.139759 5753 Information not available 08/30/2022 Do You Have A Medical Power Of Preschool Education Director? No MIGRATION.942551 5324 Information not available 08/30/2022 What Was The Date Of Your Most Recent Tobacco Screening? 02/16/2022 MIGRATION.[id number] 3434 Information not available 08/30/2022 Do You Have Any Pets? Yes MIGRATION.558937 3433 Information not available 08/30/2022 What Is Your Relationship Status? MIGRATION.797277 7118 Information not available 08/30/2022 Do You Use Your Seat Belt Or Car Seat Routinely? Yes MIGRATION.507464 7077 Information not available 08/30/2022 Do You Have Smoke And Carbon Monoxide Detectors In Your Home? Yes MIGRATION.691790 9223 Information not available 08/30/2022 Are You Passively Exposed To Smoke? No MIGRATION.293822 7754 Information not available 08/30/2022 Are There Any Smokers In Your House? No MIGRATION.938393 7038 Information not available 08/30/2022 How Much Tobacco Do You Smoke? No MIGRATION.276965 7027 Information not available 08/30/2022 Do You Use Sunscreen Routinely? Yes MIGRATION.564222 2193 Information not available 08/30/2022 Have You Recently Traveled Abroad? No MIGRATION.929173 9867 Information not available 08/30/2022 Do You Have Any Dietary Restrictions? No MIGRATION.098316 7174 Information not available 08/30/2022 Sex: Unknown Functional Status Question Answer Note LastModified by Organizat ion Details LastModified Time Do you use any illicit or recreational drugs? No MIGRATION.516672 2653 Information not available 08/30/2022 Do you or have you ever used any other forms of tobacco or nicotine? No MIGRATION.532267 0873 Information not available 08/30/2022 What is your level of alcohol consumption? Occasional MIGRATION.356797 2260 Information not available 08/30/2022 Do you or have you ever used smokeless tobacco? 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 Never used electronic cigarettes MIGRATION.447690 6670 Information not available 08/30/2022 What is your exercise level? Moderate MIGRATION.831681 9863 Information not available 08/30/2022 Mental Status Question Answer Note LastModified by Organizat ion Details LastModified Time Do you feel stressed (tense, restless, nervous, or anxious, or unable to sleep at night)? [id number] [id number].[id number] 6 Information not available 08/30/2022 Family History Relationship Description Onset Age of this Age Resolved Age Notes LastModified by Organization Details LastModified Time Mother Coronary arterioscler osis MIGRATION.[id number] Not available 08/30/2022 20:20:27 Unspecified Relation Adult attention deficit hyperactivit y disorder Child MIGRATION.[id number] Not available 08/30/2022 20:20:27 Paternal Grandfather Myocardial infarction MIGRATION.886 [id number] Not available 08/30/2022 20:20:27 Medical History Condition [...] influenza, unspecified formulation 9 completed Not Available [facility] 08/30/2022 20:22:28 Past Encounters Encounter ID Performer Location Encounter Start Date Encounter Closed Date Diagnosis/Indication Diagnosis SNOMED-CT Code Diagnosis ICD10 Code Diagnosis Note [id number] BOYD Reza [facility] [place] [address] [place] [address] 12/02/2020 00:00:00 12/25/2020 19:52:04 [id number] BOYD Reza [facility] [place] [address] [place] [address] 06/02/2021 00:00:00 06/29/2021 00:00:55 [id number] Griffin Link MD [facility] Internal [facility] [place] [address] [place] [address] 12/01/2021 00:00:00 12/01/2021 15:35:21 [id number] Griffin Link MD [facility] [place] [address] [place] [address] 02/16/2022 00:00:00 02/26/2022 17:16:57 [id number] BOYD Reza [facility] [place] [address] [place] [address] 08/24/2022 00:00:00 08/26/2022 18:13:27 [id number] BOYD Reza [facility] Internal [facility] [place] [address] [place] [address] 02/22/2023 11:33:46 02/22/2023 12:10:02 Mixed hyperlipidemia 744627538 E78.2 pt stopped her statin. wants to see labs now after weight loss Long-term drug therapy 821279662 Z79.899 all labs are due Adult heal th examination 433909996 Z00.01 well exam completed Edema of l ower extremity 511170324 R60.0 stable on maxzide 37.5mg Mitral jordon ve regurgitation 41088711 I34.0 trace noted on echo hx. Tricuspid valve regurgitation 614473431 I07.1 trace noted on echo hx. Diabetes m ellitus screening 007824004 Z13.1 screening diabetes due Pain of mu ltiple joints 34823998 M25.50 check CRP, ESR, RA, Uric acid and GENET panel. Pain in both feet 048091 0250 3560360 M79.672 check xray foot Health Concerns Section Related Observation LastModified by Organization Detai ls LastModified Time None Recorded Concern Status LastModified by Organization Details LastModified Time None Recorded Advance Directives Directive N: Payers Insurance Date Sequence Insurance Name Policy Number Policy Urena Covered Member ID Urena Member ID Guarantor Name 03/01/2023 1 [employer] (PPO) [id number] Riley Shane [id number] Kaye Shane Notes Date Note Type [...] in exercise capacity; no snoring Not Available [email or web address] [facility] [employer] 06/29/2021 00:00:55 02/17/20 22 text/htm l HyperlipidemiaReported bypatient.Duration:chronic Control:usually well controlled; improving Current Therapy:currently taking: (rosuvastatin 10mg) Compliance:compliant; compliant with diet; exercises Complications:no coronary artery disease; no peripheral artery disease; no cardiovascular disease Not Available [employer] 02/26/2022 17:16:57 08/24/19 23 text/htm l HyperlipidemiaReported bypatient.Duration:chronic Control:usually well controlled Current Therapy:she stopped taking her statin in May. Compliance:compliant; compliant with diet; exercises Complications:no coronary artery disease; no peripheral artery disease; no cardiovascular disease Not Available [place] [employer] [facility] [employer] 08/26/2022 18:13:27 02/23/20 23 text/htm l HyperlipidemiaReported bypatient.Duration:chronic Control:usually well controlled Compliance:compliant Complications:no coronary artery disease; no peripheral artery disease; no cardiovascular disease Wellness BOYD Reza [address] [place] [address], [facility] [address], [place], [address], [facility] [employer] [facility] [employer] [facility] 02/28/2023 21:32:29 OBGyn Episode No OBEpisode recorded.
[2024-12-30 10:12] VITALS: BP 119/71; PULSE 60; RESP 18; TEMP 37; O2SAT 100
--- NOTE | 2024-12-30 11:24 | ED_ITS ---
HPI - General Adult General Chief complaint: Skin/Abscess/Foreign Body Stated complaint: Left Thumb Swelling/Pain Source: patient Mode of arrival: ambulatory Limitations: no limitations History of Present Illness HPI narrative: Patient presents for evaluation of a painful lesion to the left thumb. She first noticed her symptoms on Sunday of last week. There is around vomit that became red. She thought it was a blood blister. She attempted to drain it. She did not appreciate any drainage. No loss of range of motion. She states the pain is severe, without numerical rating or descriptive quality. She has been taking Tylenol and ibuprofen for her symptoms. She is right-hand dominant. Related Data Home Medications ?Medication ?Instructions ?Recorded ?Confirmed ?Last Taken ?Type Maxide 12/30/24 Unknown History Allergies Allergy/AdvReac Type Severity Reaction Status Date / Time No Known Allergies Allergy Mild Verified 12/30/24 10:21 Review of Systems Review of Systems: CONSTITUTIONAL: Denies fever, chills, or sweats. EYES: Denies visual changes, redness, or discharge. ENT: Denies rhinorrhea, congestion, sore throat, or otalgia. CARDIOVASCULAR: Denies chest pain, palpitations, or edema. RESPIRATORY: Denies cough or dyspnea. GASTROINTESTINAL: Denies abdominal pain, nausea, vomiting, or diarrhea. GENITOURINARY: Denies dysuria or hematuria. SKIN: Reports trace lesion from the left thumb.. MUSCULOSKELETAL: Reports left thumb pain. Denies back pain NEUROLOGIC: Denies headache, numbness, dizziness, or weakness. PSYCHIATRIC: Denies anxiety or depression. [facility] Past Medical History Medical History No pertinent past medical history Surgical History Surgical History No pertinent past surgical history Family History Family History Mother Family history of obesity Family history of heart disease in male family member before age 55 Sibling Family history of obesity Grandparent Family history of obesity Family history of multiple sclerosis Family history of renal failure Family history of heart disease in male family member before age 55 Diabetes mellitus Social History Social History Smoking status: Never smoker Alcohol intake: never Substance use: never Living arrangements: with family Exam Narrative: GENERAL: Well-appearing, well-nourished, and in no acute distress. HEAD: Normocephalic, atraumatic. EYES: PERRLA and EOMI. ENT: Nares clear, no rhinorrhea or epistaxis. Mucous membranes moist. Oropharynx without tonsillar hypertrophy exudate or other lesions. Bilateral TMs pearly ndiaye nonbulging NECK: Supple. No adenopathy or masses. No carotid bruits or JVD CHEST: Clear to auscultation. No respiratory distress. No wheezes rales or rhonchi HEART: Regular rate and rhythm. No murmur heard. Normal peripheral pulses. ABDOMEN: Soft, nontender, nondistended, normal active bowel sounds. EXTREMITIES: Normal range of motion. No edema. SKIN: Warm, dry, no rash. There is an approximately 3-4 mm raised skin colored lesion emerging from the base of the skin of the proximal nail plate of the left thumb NEURO: No focal deficits. Alert and oriented x3. PSYCH: Normal mood and affect. Course Course Emergency Course: This is a 49-year-old female who presented for evaluation of a painful swollen lesion to the left thumb. 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 This does not appear to be infected. I will get her in touch with hand surgery to see she can have it excised in office. I offered her a splint, which she declined. In the event that she has intractable pain she should go to the emergency department. Patient in agreement with plan of care. Level of Care: Express Care Visit Vital Signs Vital signs: Vital Signs Temperature 37.0 C 12/30/24 10:12 Pulse Rate 60 12/30/24 10:12 Respiratory Rate 18 12/30/24 10:12 Blood Pressure 119/71 12/30/24 10:12 Pulse Oximetry 100 12/30/24 10:12 Oxygen Delivery Room Air 12/30/24 10:12 Temperature 37.0 C 12/30/24 10:12 Pulse Rate 60 12/30/24 10:12 Respiratory Rate 18 12/30/24 10:12 Blood Pressure 119/71 12/30/24 10:12 Pulse Oximetry 100 12/30/24 10:12 Oxygen Delivery Room Air 12/30/24 10:12 Medical Decision Making Vital Signs Vital Signs: Vital Signs Temperature 37.0 C 12/30/24 10:12 Pulse Rate 60 12/30/24 10:12 Respiratory Rate 18 12/30/24 10:12 Blood Pressure 119/71 12/30/24 10:12 Pulse Oximetry 100 12/30/24 10:12 Oxygen Delivery Room Air 12/30/24 10:12 Temperature 37.0 C 12/30/24 10:12 Pulse Rate 60 12/30/24 10:12 Respiratory Rate 18 12/30/24 10:12 Blood Pressure 119/71 12/30/24 10:12 Pulse Oximetry 100 12/30/24 10:12 Oxygen Delivery Room Air 12/30/24 10:12 Discharge Plan Discharge Clinical Impression: Fibroma of finger of left hand Patient Disposition: Home Condition: Stable Instructions: Antibiotic Form, Finger Sprain (ED) Patient Language: Mongolian Prescriptions: No Action Maxide Patient Comments: every other day dicyclomine 20 mg tablet 20 mg PO TID PRN (Reason: abdominal pain) Qty: 30 0RF Follow-up/Referrals: Britney Mon MD [Physician] - Tomy,DIPAK Woodward [Primary Care Provider] - Time of Disposition: 11:23
== END 2024-12-30 11:41 | disposition home or self-care (01) ==
PROVIDERS: Emergency Provider Nurse Practitioner; PCP Physician Assistant
DX: D23.62 Other benign neoplasm of skin of left upper limb, including shoulder (principal)
CPT/HCPCS: 99212; G0463; J2003

== ENCOUNTER → 2024-12-30 16:12 | Outpatient (REF) | payer BC, SELFPAY ==
--- NOTE | 2024-12-30 16:12 | S_PTH ---
PATIENT: Kaye Shane LOC: [facility] U#:[id number] AGE/SX: 49/F ROOM: RE12/30/[address]: Kiki Diana PA-C : 1975 BED: DIS: SPEC #: [id number] RECD: 12/31/24 06:28 STATUS: ELLEN REVeronica #: [id number] JESSICA: 12/30/24 16:[address]: Kiki Diana DEPT: [facility] Surgical RECD BY: Janeth Andrew ENTERED: 12/31/24 06:28 SP TYPE: Surgical OTHR DR: Crissy Huitron, DIPAK Tissues: A - Mass/Tumor Procedures: Hematoxylin and Eosin Stain Gross and Microscopic Level 5
--- OUTSIDE RECORDS SUMMARY | 2024-12-30 16:15 | XMS_ITS | Referral Summary ---
Author Organization [facility] at the [facility] Address [address] [place] [id number] Care Team Providers Care Senior Wealth Advisor Name Role Phone GuillerminaCrissy wilkinson Caitlyn NIX Primary Care Pr ovider Encounters Date Type Department Care Team Description 10/31/2024 8:32 AM CDT - 10/31/2024 11:59 PM CDT Hospital Encounter [address] [address] Pre-employment health screening examination Discharge Disposition: Discharge to home or self care 10/31/2024 8:30 AM CDT Lab [facility] Outpatient Lab at [address] [phone] 10/29/2024 Orders Only [facility] Healthcare Occupatiuonal Health [address] [place] [address] Room 3420 (Third Floor) [place] [address] Omar Ansari MD Pre-employment health screening examination [...] on file Legal Sex Female 12:34 AM TRANSPORTATION ENGINEERING TECHNICIAN Gender Identity Not on file Sexual Orientation Not on file Last Filed Vital Signs Vital Sign Reading Time Taken Comments Blood Pressure 105/59 06/25/2022 7:49 PM TRANSPORTATION ENGINEERING TECHNICIAN Pulse 103 06/25/2022 7:49 PM TRANSPORTATION ENGINEERING TECHNICIAN Temperature 36.8 C (98.3 F) 06/25/2022 7:49 PM TRANSPORTATION ENGINEERING TECHNICIAN Respiratory Rate 18 06/25/2022 7:49 PM TRANSPORTATION ENGINEERING TECHNICIAN Oxygen Saturation 98% 06/25/2022 7:49 PM TRANSPORTATION ENGINEERING TECHNICIAN Inhaled Oxygen Concentration - - Weight 74.8 kg (165 lb) 06/25/2022 7:49 PM TRANSPORTATION ENGINEERING TECHNICIAN Height 162.6 cm (5' 4) 10/23/2014 11:54 AM CDT Body Mass Index 28.32 10/23/2014 11:54 AM CDT Plan of Treatment Not on file Procedures Procedure Name Priority Date/Time Associated Diagnosis Comments VARICELLA ZOSTER ANTIBODY, IGG Routine 10/31/2024 8:32 AM CDT Pre-employment health screening examination THINPREP PAP Routine 08/12/2014 1:00 PM TRANSPORTATION ENGINEERING TECHNICIAN from Last 3 Months or Most Recently Relevant to Health Maintenance Results * (ABNORMAL) Varicella Zoster IgG antibody Blood (10/31/2024 8:32 AM CDT) VZV IgG Nonreacti ve(A) Reactive Comment: Non-reactive: No detectable antibody to Varicella-zoster virus. Such individuals are presumed to be uninfected and to be susceptible to primary infection. Testing performed by: [facility], [address] [facility], [place]., [address] Blood 10/31/2024 8:32 AM CDT 11/01/2024 12:10 AM CDT Narrative ALDEN RICARDO - 11/01/2024 12:42 PM CDT Bill to [facility] - 1520. Patient is employed by/enrolled at:->[facility] Home Care Services Omar Ansari MD LAB MICROBIOLOGY - GENERAL OR DERABLES Final Result [place] [address] [address] Department [place] [address] * ThinPrep Pap (08/12/2014 1:00 PM TRANSPORTATION ENGINEERING TECHNICIAN) Thin Prep Pap Smear SEE BELOW () 08/22 10:47 AM TRANSPORTATION ENGINEERING TECHNICIAN [facility] HISTORICAL RESULTS Comment: Plaster Mold Maker ThinPrep Cytology Final Report ThinPrep Pap Specimen Source Cervix/Endocervix Specimen Adequacy Satisfactory for interpretation, endocervical cells (transformation zone) present. Interpretation Negative for intraepithelial lesion or malignancy. 08/21/14 Shrinker: LAKESHIA Hartman(ASCP) Reviewed by: JUANITO 08/22/14 Verified By: LAKESHIA Solomon(ASCP) electronic signature [facility], Department of Pathology For questions regarding this case, call ext. [phone] CPT Code(s) 39849 Clinical History LMP: [id number] : N : N IUD: N Hormone Therapy: N Postmenopausal: N Previous surgery date and type: N Hysterectomy: N Chemotherapy: N MAURICIO Exposure: N Radiation: N Previous Abnormal Pap? Details: N Diagnostic or Screening Pap Test: Screening Performed by [facility], [address] [place] [id number] [email or web address], Khurram Esparza MD - Lab. Director 08/12/2014 1:0 0 PM TRANSPORTATION ENGINEERING TECHNICIAN 08/12/2014 4:07 PM TRANSPORTATION ENGINEERING TECHNICIAN Jose A Wiggins MD LAB PATHOLOGY ORDERABLE S Final Result [facility] HISTORICAL RESULTS from Last 3 Months or Most Recently Relevant to Health Maintenance [place] Care Teams Senior Wealth Advisor Relationship Specialty Start Date End Date Crissy Huitron PA PCP - General Physician Marketing Writer 03/30/20
--- OUTSIDE RECORDS SUMMARY | 2024-12-30 16:15 | XMS_ITS | Clinical Summary ---
Author Organization [facility] at the [facility] [place] [facility] Address [address] [place] [address] Care Team Providers Care Ecommerce Marketing Specialist Name Role Phone Guillerminaminh Crissy NIX Primary [...] - 10/31/2024 11:59 PM CDT Hospital Encounter [address] [address] Pre-employment health screening examination Discharge Disposition: Discharge to home or self care 10/31/2024 8:30 AM CDT Lab [facility] Medical [facility] Outpatient Lab at [address] [phone] 10/29/2024 Orders Only [facility] Occupatiuonal Health [address] [place] [address] Room 3420 (Third Floor) [place] [address] Omar Ansari MD Pre-employment health screening examination (Primary Dx) from Last 3 Months Social History Tobacco Use Types Packs/Day Years Used Date Smoking Tobacco: Never Assessed Comments Unknown Sex and Gender Information Value Date Recorded Sex Assigned at Not on file Legal Sex Female 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 Gender Identity Not on file Sexual Orientation Not on file Last Filed Vital Signs Vital Sign Reading Time Taken Comments Blood Pressure 105/59 06/25/2022 7:49 PM MARSH BUGGY OPERATOR Pulse 103 06/25/2022 7:49 PM MARSH BUGGY OPERATOR Temperature 36.8 C (98.3 F) 06/25/2022 7:49 PM MARSH BUGGY OPERATOR Respiratory Rate 18 06/25/2022 7:49 PM MARSH BUGGY OPERATOR Oxygen Saturation 98% 06/25/2022 7:49 PM MARSH BUGGY OPERATOR Inhaled Oxygen Concentration - - Weight 74.8 kg (165 lb) 06/25/2022 7:49 PM MARSH BUGGY OPERATOR Height 162.6 cm (5' 4) 10/23/2014 11:54 [...] examination THINPREP PAP Routine 08/12/2014 1:00 PM MARSH BUGGY OPERATOR from Last 3 Months or Most Recently Relevant to Health Maintenance Results * (ABNORMAL) Varicella Zoster IgG antibody Blood (10/31/2024 8:32 AM CDT) Pathologist [facility] VZV IgG Nonreacti ve(A) Reactive Comment: Non-reactive: No detectable antibody to Varicella-zoster virus. Such individuals are presumed to be uninfected and to be susceptible to primary infection. Testing performed by: [facility], [address] [facility] [place]., [address] Blood 10/31/2024 8:32 AM CDT 11/01/2024 12:10 AM CDT Clarissa RUANO CH - 11/01/2024 12:42 PM CDT Bill to [facility] [place] - 1520. 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 Interpretation Negative for intraepithelial lesion or malignancy. 08/21/14 Chronograph Operator: Nani Yeager, LAKESHIA(ASCP) Reviewed by: JUANITO 08/22/14 Verified By: Petra Taveras, [place](ASCP) electronic signature [facility], Department of Pathology For questions regarding this case, call ext. [phone] CPT Code(s) 63500 Clinical History LMP: [id number] : N : N IUD: N Hormone Therapy: N Postmenopausal: N Previous surgery date and type: N Hysterectomy: N Chemotherapy: N MAURICIO Exposure: N Radiation: N Previous Abnormal Pap? Details: N Diagnostic or Screening Pap Test: Screening Performed by [facility], [address] [place] [id number] [email or web address], Khurram Esparza MD - Lab. Director 08/12/2014 1:00 PM MARSH BUGGY OPERATOR 08/12/2014 4:07 PM MARSH BUGGY OPERATOR Jose A Wiggins MD LAB PATHOLOGY ORDERABLE S Final Result [facility] HISTORICAL RESULTS from Last 3 Months or Most Recently Relevant to Health Maintenance Insurance [employer] [facility] [employer] [place] [place] Care Teams Ecommerce Marketing Specialist Relationship Specialty Start Date End Date Crissy Huitron PA PCP - General Physician Piping Blocker 03/30/20
--- OUTSIDE RECORDS SUMMARY | 2024-12-30 16:15 | XMS_ITS | Clinical Summary ---
Author Organization [facility] Address [address] [place] [address] Care Team Providers Care Gunner Mate Name Role Phone Unavailable Primary Care Provider Unavailabl e Source Comments [facility],non-owned Affiliates and Associated Physician Practices is amultiple site organization consisting of ambulatory clinics and hospital sitesin [place], [place], [place] and [place]. This disclosure is being madepursuant to the Care Everywhere program and may not contain all information available regarding this patient. 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
== END ==
LOC: ANHLAB 16:12
PROVIDERS: PCP Physician Assistant; Visit Provider Physician Assistant Surgical
DX: D48.9 Neoplasm of uncertain behavior, unspecified (principal)
CPT/HCPCS: 88307